=== PATIENT | female | born 1935 | race Caucasian/White ===

== ENCOUNTER 2017-07-19 07:58 | Inpatient (IN) | payer MEDICARE, OTHER ==
[2017-07-11 11:30] LABS: ADD MAN DIFF? NO
[2017-07-11 11:31] LABS: BASOPHILS % 0.5 % (0.0-2.0); EOSINOPHILS # 0.1 10^3/ul (0.0-0.5); EOSINOPHILS % 0.7 % (0.0-7.0); HEMATOCRIT 33.6 % (37.0-47.0); HEMOGLOBIN 10.7 g/dl (12.0-16.0); LYMPHOCYTES # 3.4 10^3/ul (0.8-2.9); LYMPHOCYTES % 40.3 % (15.0-51.0); MEAN CORPUSCULAR HGB CONC 31.8 g/dl (32.0-37.0); MEAN PLATELET VOLUME 10.5 fl (7.4-10.4); MONOCYTE # 0.5 10^3/ul (0.3-0.9); MONOCYTES % 5.4 % (0.0-11.0); NEUTROPHIL # 4.4 10^3/ul (1.6-7.5); NEUTROPHILS % 52.9 % (39.0-77.0); PLATELET COUNT 238 10^3/UL (140-415); RED BLOOD COUNT 3.82 10^6/ul (4.20-5.40); RED CELL DISTRIBUTION WIDTH 14.4 % (11.5-14.5)
[2017-07-11 11:31] LABS: WHITE BLOOD COUNT 8.4 10^3/ul (4.8-10.8)
[2017-07-11 11:50] LABS: INR 0.86; PROTIME 11.8 Sec (11.9-14.9); PT RATIO 0.9
[2017-07-11 11:51] LABS: PARTIAL THROMBOPLASTIN TIME 36.6 Sec (25.0-35.0)
[2017-07-11 11:53] LABS: ALANINE AMINOTRANSFERASE 30 IU/L (13-69); ALBUMIN 4.2 g/dl (3.3-4.9); ALBUMIN/GLOBULIN RATIO 1.27; ALKALINE PHOSPHATASE 36 IU/L (42-121); ANION GAP 16 (8-16); ASPARTATE AMINO TRANSFERASE 23 IU/L (15-46); BLOOD UREA NITROGEN 28 mg/dl (7-20); CARBON DIOXIDE 28 mmol/L (21-31); CHLORIDE 101 mmol/L (97-110); CREATININE 1.24 mg/dl (0.44-1.00); GLUCOSE 99 mg/dl (70-220); POTASSIUM 4.8 mmol/L (3.5-5.1); SODIUM 140 mmol/L (135-144); TOTAL PROTEIN 7.5 g/dl (6.1-8.1)
[2017-07-19] MEDS: SOD CHLORIDE 0.9% 1,000 ML IV ×2 (06:30→19:50)
[2017-07-19] MEDS: AMPICILLIN/SULB 3 GM/NS (PMX) 100 ML IVPB (06:30)
[~2017-07-19 07:58] MED LIST: PROPOFOL 200 MG INJ
[2017-07-19] MEDS ORDERED: MIDAZOLAM 1 MG/ML 2 ML INJ (12:33)
[2017-07-19] MEDS ORDERED: ONDANSETRON 4 MG INJ (14:45)
[2017-07-19] MEDS ORDERED: GLYCOPYRROLATE 0.4 MG INJ (14:45)
[2017-07-19] MEDS ORDERED: ETOMIDATE 20 MG INJ (14:45)
[2017-07-19] MEDS ORDERED: ROCURONIUM 50 MG INJ (14:45)
[2017-07-19] MEDS ORDERED: NEOSTIGMINE 3 MG/3 ML SYRINGE (14:45)
[2017-07-19] MEDS ORDERED: LIDOCAINE 2% (SDV) 5 ML INJ (14:45)
[2017-07-19] MEDS ORDERED: metroNIDAZOLE 500 MG/NS (PMX) 100 ML IVPB (14:46)
[2017-07-19] MEDS ORDERED: CIPROFLOXACIN 400MG/D5W 200 ML (14:46)
[2017-07-19] MEDS ORDERED: METOCLOPRAMIDE 10 MG INJ IV (15:30)
[2017-07-19] MEDS ORDERED: DIPHENHYDRAMINE 50 MG INJ IV (15:30)
[2017-07-19] MEDS ORDERED: HYDROmorphONE (0.2 MG/ML) 10ML SYG IV (15:30)
[2017-07-19] MEDS ORDERED: LABETALOL HCL 20MG INJ IV (15:30)
[2017-07-19] MEDS ORDERED: MEPERIDINE 25 MG INJ IV (15:30)
[2017-07-19] MEDS ORDERED: hydrALAzine 20 MG INJ IV (15:30)
[2017-07-19] MEDS ORDERED: FENTAnyl 50 MCG/ML VIAL IV (15:30)
[2017-07-19] MEDS: ONDANSETRON 4 MG INJ IV (15:45)
[2017-07-19] MEDS: HYDROmorphONE (0.2 MG/ML) 10ML SYG IV (15:53)
[2017-07-19] MEDS: morphine 1 MG/ML 30 ML (PCA) IV (16:00)
[2017-07-19] MEDS: D5W-0.45 NACL + KCL 20 MEQ 1,000 ML IV ×2 (19:21→23:05)
[2017-07-19] MEDS ORDERED: VITAMIN A & D 5 GM OINT PACKET TOP (21:13)
[2017-07-20] MEDS: morphine 1 MG/ML 30 ML (PCA) IV ×2 (03:23→14:26)
[2017-07-20] MEDS: D5W-0.45 NACL + KCL 20 MEQ 1,000 ML IV ×3 (05:54→16:46)
[2017-07-20 11:17] LABS: ADD MAN DIFF? NO
[2017-07-20 11:38] LABS: BASOPHILS % 0.2 % (0.0-2.0); EOSINOPHILS % 0.1 % (0.0-7.0); HEMATOCRIT 32.4 % (37.0-47.0); HEMOGLOBIN 10.4 g/dl (12.0-16.0); LYMPHOCYTES # 3.4 10^3/ul (0.8-2.9); LYMPHOCYTES % 25.4 % (15.0-51.0); MEAN CORPUSCULAR HEMOGLOBIN 28.3 pg (29.0-33.0); MEAN CORPUSCULAR HGB CONC 32.1 g/dl (32.0-37.0); MEAN CORPUSCULAR VOLUME 88.3 fl (82.0-101.0); MEAN PLATELET VOLUME 11.1 fl (7.4-10.4); MONOCYTE # 0.7 10^3/ul (0.3-0.9); MONOCYTES % 5.3 % (0.0-11.0); NEUTROPHILS % 68.5 % (39.0-77.0); PLATELET COUNT 234 10^3/UL (140-415); RED BLOOD COUNT 3.67 10^6/ul (4.20-5.40); RED CELL DISTRIBUTION WIDTH 14.8 % (11.5-14.5)
[2017-07-20 11:38] LABS: WHITE BLOOD COUNT 13.2 10^3/ul (4.8-10.8)
[2017-07-20 11:49] LABS: INR 1.08; PROTIME 14.1 Sec (11.9-14.9); PT RATIO 1.1
[2017-07-20 11:50] LABS: PARTIAL THROMBOPLASTIN TIME 35.5 Sec (25.0-35.0)
[2017-07-20 11:55] LABS: BLOOD UREA NITROGEN 14 mg/dl (7-20); CALCIUM 8.4 mg/dl (8.4-10.2); CARBON DIOXIDE 26 mmol/L (21-31); CHLORIDE 101 mmol/L (97-110); CREATININE 1.39 mg/dl (0.44-1.00); GLUCOSE 120 mg/dl (70-220); MAGNESIUM 1.2 mg/dl (1.7-2.5); PHOSPHORUS 4.9 mg/dl (2.5-4.9); POTASSIUM 4.9 mmol/L (3.5-5.1)
[2017-07-20 12:17] LABS: ANION GAP 12 (8-16); SODIUM 134 mmol/L (135-144)
[2017-07-20] MEDS: D5-NS + KCL 20 MEQ 1,000 ML IV (19:00)
[2017-07-20] MEDS: MAGNESIUM SULFATE 2 GM/50 ML 50 ML IVPB (20:27)
[2017-07-21] MEDS: D5-NS + KCL 20 MEQ 1,000 ML IV ×3 (02:39→17:53)
[2017-07-21] MEDS: morphine 1 MG/ML 30 ML (PCA) IV ×2 (04:08→17:55)
[2017-07-21 05:07] LABS: ADD MAN DIFF? NO
[2017-07-21 05:11] LABS: BASOPHILS % 0.2 % (0.0-2.0); EOSINOPHILS % 0.1 % (0.0-7.0); HEMATOCRIT 31.1 % (37.0-47.0); HEMOGLOBIN 9.7 g/dl (12.0-16.0); LYMPHOCYTES # 1.9 10^3/ul (0.8-2.9); LYMPHOCYTES % 14.1 % (15.0-51.0); MEAN CORPUSCULAR HEMOGLOBIN 27.7 pg (29.0-33.0); MEAN CORPUSCULAR HGB CONC 31.2 g/dl (32.0-37.0); MEAN CORPUSCULAR VOLUME 88.9 fl (82.0-101.0); MEAN PLATELET VOLUME 10.7 fl (7.4-10.4); MONOCYTE # 0.6 10^3/ul (0.3-0.9); MONOCYTES % 4.6 % (0.0-11.0); NEUTROPHIL # 10.9 10^3/ul (1.6-7.5); NEUTROPHILS % 80.5 % (39.0-77.0); PLATELET COUNT 214 10^3/UL (140-415); RED CELL DISTRIBUTION WIDTH 14.7 % (11.5-14.5)
[2017-07-21 05:11] LABS: WHITE BLOOD COUNT 13.6 10^3/ul (4.8-10.8)
[2017-07-21 05:44] LABS: PARTIAL THROMBOPLASTIN TIME 37.7 Sec (25.0-35.0)
[2017-07-21 05:48] LABS: ANION GAP 12 (8-16); BLOOD UREA NITROGEN 15 mg/dl (7-20); CARBON DIOXIDE 25 mmol/L (21-31); CHLORIDE 103 mmol/L (97-110); CREATININE 1.32 mg/dl (0.44-1.00); GLUCOSE 164 mg/dl (70-220); PHOSPHORUS 3.5 mg/dl (2.5-4.9); POTASSIUM 4.7 mmol/L (3.5-5.1); SODIUM 135 mmol/L (135-144)
[2017-07-21 05:53] LABS: INR 1.18; PROTIME 15.2 Sec (11.9-14.9); PT RATIO 1.2
[2017-07-21] MEDS: KETOROLAC 15 MG INJ IV ×3 (14:30→20:44)
[2017-07-21] MEDS ORDERED: KETOROLAC 15 MG INJ IV (20:30)
[2017-07-22] MEDS: D5-NS + KCL 20 MEQ 1,000 ML IV ×2 (02:01→12:09)
[2017-07-22] MEDS: KETOROLAC 15 MG INJ IV ×4 (02:01→20:30)
[2017-07-22] MEDS: morphine 1 MG/ML 30 ML (PCA) IV (09:03)
[2017-07-22 10:31] LABS: ADD MAN DIFF? NO
[2017-07-22 10:32] LABS: WHITE BLOOD COUNT 10.4 10^3/ul (4.8-10.8)
[2017-07-22 10:32] LABS: BASOPHILS % 0.3 % (0.0-2.0); EOSINOPHILS # 0.1 10^3/ul (0.0-0.5); EOSINOPHILS % 1.2 % (0.0-7.0); HEMOGLOBIN 9.3 g/dl (12.0-16.0); LYMPHOCYTES # 1.8 10^3/ul (0.8-2.9); LYMPHOCYTES % 17.5 % (15.0-51.0); MEAN CORPUSCULAR VOLUME 90.4 fl (82.0-101.0); MEAN PLATELET VOLUME 10.5 fl (7.4-10.4); MONOCYTE # 0.4 10^3/ul (0.3-0.9); NEUTROPHILS % 76.6 % (39.0-77.0); PLATELET COUNT 227 10^3/UL (140-415); RED BLOOD COUNT 3.32 10^6/ul (4.20-5.40); RED CELL DISTRIBUTION WIDTH 14.7 % (11.5-14.5)
[2017-07-22 10:49] LABS: INR 0.93; PROTIME 12.5 Sec (11.9-14.9)
[2017-07-22 10:50] LABS: ANION GAP 14 (8-16); BLOOD UREA NITROGEN 14 mg/dl (7-20); CALCIUM 8.2 mg/dl (8.4-10.2); CARBON DIOXIDE 19 mmol/L (21-31); CHLORIDE 111 mmol/L (97-110); CREATININE 1.16 mg/dl (0.44-1.00); GLUCOSE 122 mg/dl (70-220); PARTIAL THROMBOPLASTIN TIME 36.5 Sec (25.0-35.0); PHOSPHORUS 3.1 mg/dl (2.5-4.9); POTASSIUM 5.7 mmol/L (3.5-5.1); SODIUM 138 mmol/L (135-144)
[2017-07-22] MEDS: DEXTROSE 5%-0.45% NACL 1,000 ML IV (15:00)
[2017-07-23] MEDS: DEXTROSE 5%-0.45% NACL 1,000 ML IV ×4 (02:07→22:30)
[2017-07-23] MEDS: KETOROLAC 15 MG INJ IV ×4 (02:30→20:13)
[2017-07-23 06:12] LABS: ADD MAN DIFF? NO
[2017-07-23 06:20] LABS: BASOPHILS % 0.2 % (0.0-2.0); EOSINOPHILS # 0.1 10^3/ul (0.0-0.5); EOSINOPHILS % 1.4 % (0.0-7.0); HEMATOCRIT 27.6 % (37.0-47.0); HEMOGLOBIN 8.7 g/dl (12.0-16.0); LYMPHOCYTES # 1.7 10^3/ul (0.8-2.9); LYMPHOCYTES % 21.4 % (15.0-51.0); MEAN CORPUSCULAR HEMOGLOBIN 28.2 pg (29.0-33.0); MEAN CORPUSCULAR HGB CONC 31.5 g/dl (32.0-37.0); MEAN CORPUSCULAR VOLUME 89.6 fl (82.0-101.0); MEAN PLATELET VOLUME 10.8 fl (7.4-10.4); MONOCYTE # 0.4 10^3/ul (0.3-0.9); NEUTROPHIL # 5.8 10^3/ul (1.6-7.5); NEUTROPHILS % 71.6 % (39.0-77.0); PLATELET COUNT 225 10^3/UL (140-415); RED BLOOD COUNT 3.08 10^6/ul (4.20-5.40); RED CELL DISTRIBUTION WIDTH 14.6 % (11.5-14.5)
[2017-07-23 06:20] LABS: WHITE BLOOD COUNT 8.1 10^3/ul (4.8-10.8)
[2017-07-23] MEDS: ONDANSETRON 4 MG INJ IV ×2 (06:44→23:52)
[2017-07-23] MEDS: morphine 1 MG/ML 30 ML (PCA) IV (06:55)
[2017-07-23 07:04] LABS: ANION GAP 12 (8-16); BLOOD UREA NITROGEN 13 mg/dl (7-20); CALCIUM 8.3 mg/dl (8.4-10.2); CARBON DIOXIDE 21 mmol/L (21-31); CHLORIDE 110 mmol/L (97-110); CREATININE 1.13 mg/dl (0.44-1.00); GLUCOSE 116 mg/dl (70-220); POTASSIUM 5.2 mmol/L (3.5-5.1); SODIUM 138 mmol/L (135-144)
[2017-07-24] MEDS: DEXTROSE 5%-0.45% NACL 1,000 ML IV ×6 (01:07→22:30)
[2017-07-24] MEDS: hydrALAzine 20 MG INJ IV ×2 (01:07→20:15)
[2017-07-24] MEDS: KETOROLAC 15 MG INJ IV ×2 (03:44→08:51)
[2017-07-24] MEDS: METOCLOPRAMIDE 10 MG INJ IV (03:44)
[2017-07-24 05:26] LABS: ADD MAN DIFF? NO
[2017-07-24 05:28] LABS: BASOPHILS % 0.4 % (0.0-2.0); EOSINOPHILS % 0.6 % (0.0-7.0); HEMATOCRIT 26.9 % (37.0-47.0); HEMOGLOBIN 8.6 g/dl (12.0-16.0); LYMPHOCYTES # 1.3 10^3/ul (0.8-2.9); LYMPHOCYTES % 19.6 % (15.0-51.0); MEAN CORPUSCULAR HEMOGLOBIN 28.2 pg (29.0-33.0); MEAN CORPUSCULAR VOLUME 88.2 fl (82.0-101.0); MEAN PLATELET VOLUME 10.4 fl (7.4-10.4); MONOCYTE # 0.4 10^3/ul (0.3-0.9); MONOCYTES % 5.5 % (0.0-11.0); NEUTROPHIL # 4.9 10^3/ul (1.6-7.5); NEUTROPHILS % 73.5 % (39.0-77.0); PLATELET COUNT 236 10^3/UL (140-415); RED BLOOD COUNT 3.05 10^6/ul (4.20-5.40); RED CELL DISTRIBUTION WIDTH 14.6 % (11.5-14.5)
[2017-07-24 05:28] LABS: WHITE BLOOD COUNT 6.7 10^3/ul (4.8-10.8)
[2017-07-24 05:52] LABS: ANION GAP 11 (8-16); BLOOD UREA NITROGEN 16 mg/dl (7-20); CARBON DIOXIDE 23 mmol/L (21-31); CHLORIDE 107 mmol/L (97-110); CREATININE 1.22 mg/dl (0.44-1.00); GLUCOSE 132 mg/dl (70-220); POTASSIUM 4.6 mmol/L (3.5-5.1); SODIUM 136 mmol/L (135-144)
[2017-07-24] MEDS: ONDANSETRON 4 MG INJ IV ×2 (08:51→17:46)
[2017-07-25] MEDS: hydrALAzine 20 MG INJ IV (00:35)
[2017-07-25] MEDS: METOCLOPRAMIDE 10 MG INJ IV (00:42)
[2017-07-25] MEDS: DEXTROSE 5%-0.45% NACL 1,000 ML IV ×3 (02:36→15:05)
[2017-07-25 05:17] LABS: HEMATOCRIT 34.4 % (37.0-47.0); HEMOGLOBIN 11.1 g/dl (12.0-16.0); MEAN CORPUSCULAR HEMOGLOBIN 27.5 pg (29.0-33.0); MEAN CORPUSCULAR HGB CONC 32.3 g/dl (32.0-37.0); MEAN CORPUSCULAR VOLUME 85.4 fl (82.0-101.0); MEAN PLATELET VOLUME 10.2 fl (7.4-10.4); PLATELET COUNT 369 10^3/UL (140-415); RED BLOOD COUNT 4.03 10^6/ul (4.20-5.40); RED CELL DISTRIBUTION WIDTH 14.1 % (11.5-14.5)
[2017-07-25 05:17] LABS: WHITE BLOOD COUNT 6.8 10^3/ul (4.8-10.8)
[2017-07-25] MEDS: ACETAMINOPHEN 1000MG/100ML IV 100 ML IVPB ×2 (05:18→20:49)
[2017-07-25 05:39] LABS: ANION GAP 13 (8-16); BLOOD UREA NITROGEN 16 mg/dl (7-20); CALCIUM 8.8 mg/dl (8.4-10.2); CARBON DIOXIDE 17 mmol/L (21-31); CHLORIDE 109 mmol/L (97-110); GLUCOSE 131 mg/dl (70-220); SODIUM 135 mmol/L (135-144)
[2017-07-25 05:43] LABS: ADD MAN DIFF? YES; POSITIVE DIFF @See below
[2017-07-25] MEDS: PANTOPRAZOLE 40 MG INJ IV ×2 (05:54→17:49)
[2017-07-25] MEDS ORDERED: DILTIAZEM-D5W 125MG/125ML DRIP 125 ML IV ×2 (07:00)
[2017-07-25] MEDS: DILTIAZEM-D5W 125MG/125ML DRIP 125 ML IV (07:01)
[2017-07-25 07:48] LABS: ANISOCYTOSIS 1+ (0-0); BAND NEUTROPHILS % (M) 45 % (0-4); BURR CELLS 2+ (0-0); LYMPHOCYTES #M 1.3 10^3/ul (0.8-2.9); LYMPHOCYTES % (M) 20 % (15-51); METAMYELOCYTES %M 1 % (0-0); MICROCYTOSIS 1+ (0-0); MONOCYTE #M 0.6 10^3/ul (0.3-0.9); MONOCYTES % (M) 9 % (0-11); MYELOCYTES % (M) 1 % (0-0); PLATELET ESTIMATE NORMAL; POIKILOCYTOSIS 2+ (0-0); POLYCHROMASIA 1+ (0-0); REACTIVE LYMPHOCYTES #M 0.3 10^3/ul (0.0-0.0); REACTIVE LYMPHOCYTES% (M) 5 % (0-0); SEG NEUT #M 1.5 10^3/ul (1.7-7.5); SEGMENTED NEUTROPHILS (M) % 19 % (39-77); SMUDGE%M 1 % (0-0)
[2017-07-25] MEDS: LIDOCAINE 1% (MPF) 5 ML VIAL SC (08:30)
[2017-07-25 11:13] LABS: LACTIC ACID 5.5 mmol/L (0.5-2.0)
[2017-07-25] MEDS: SOD CHLORIDE 0.9% 1,000 ML IV ×3 (11:45→18:56)
[2017-07-25] MEDS: VANCOMYCIN IV PER PHARMACY XX ×2 (12:00→18:00)
[2017-07-25 13:55] LABS: ADD MAN DIFF? NO
[2017-07-25 14:21] LABS: ALANINE AMINOTRANSFERASE 21 IU/L (13-69); ALBUMIN 2.3 g/dl (3.3-4.9); ALBUMIN/GLOBULIN RATIO 0.95; ALKALINE PHOSPHATASE 25 IU/L (42-121); ANION GAP 15 (8-16); ASPARTATE AMINO TRANSFERASE 21 IU/L (15-46); BILIRUBIN,INDIRECT 0.2 mg/dl (0-1.1); BILIRUBIN,TOTAL 0.2 mg/dl (0.2-1.3); BLOOD UREA NITROGEN 18 mg/dl (7-20); CALCIUM 7.6 mg/dl (8.4-10.2); CARBON DIOXIDE 16 mmol/L (21-31); CHLORIDE 109 mmol/L (97-110); CREATININE 1.28 mg/dl (0.44-1.00); GLUCOSE 97 mg/dl (70-220); SODIUM 136 mmol/L (135-144); TOTAL PROTEIN 4.7 g/dl (6.1-8.1)
[2017-07-25] MEDS: PIPER-TAZO 2.25 GM (PMX) 50 ML IVPB ×2 (15:04→17:49)
[2017-07-25] MEDS: VANCOMYCIN 1.5 GM in DEXTROSE 5% 500 ML IVPB (15:04)
[2017-07-25 15:08] LABS: ABNORMAL IP MESSAGE 1; HEMATOCRIT 30.6 % (37.0-47.0); HEMOGLOBIN 9.9 g/dl (12.0-16.0); MEAN CORPUSCULAR HEMOGLOBIN 28.1 pg (29.0-33.0); MEAN CORPUSCULAR HGB CONC 32.4 g/dl (32.0-37.0); MEAN CORPUSCULAR VOLUME 86.9 fl (82.0-101.0); MEAN PLATELET VOLUME 10.8 fl (7.4-10.4); PLATELET COUNT 362 10^3/UL (140-415); RED BLOOD COUNT 3.52 10^6/ul (4.20-5.40); RED CELL DISTRIBUTION WIDTH 14.4 % (11.5-14.5)
[2017-07-25 15:08] LABS: WHITE BLOOD COUNT 11.5 10^3/ul (4.8-10.8)
[2017-07-25 15:09] LABS: POSITIVE DIFF @See below
[2017-07-25] MEDS: CASPOFUNGIN 70 MG in SOD CHLORIDE 0.9% 250 ML IVPB (15:49)
[2017-07-25 16:01] LABS: ANISOCYTOSIS 1+ (0-0); BAND NEUTROPHILS #M 4.7 10^3/ul (0.0-0.6); BAND NEUTROPHILS % (M) 41 % (0-4); GIANT THROMBO% (M) 2 % (0-0); LYMPHOCYTES #M 2.6 10^3/ul (0.8-2.9); LYMPHOCYTES % (M) 23 % (15-51); METAMYELOCYTES #M 0.6 10^3/ul (0.0-0.0); METAMYELOCYTES %M 6 % (0-0); MICROCYTOSIS 1+ (0-0); MONOCYTE #M 0.9 10^3/ul (0.3-0.9); MONOCYTES % (M) 8 % (0-11); PLATELET ESTIMATE NORMAL; POLYCHROMASIA 1+ (0-0); REACTIVE LYMPHOCYTES #M 0.1 10^3/ul (0.0-0.0); REACTIVE LYMPHOCYTES% (M) 1 % (0-0); SEGMENTED NEUTROPHILS (M) % 21 % (39-77)
[2017-07-25] MEDS: DIGOXIN 500 MCG INJ IV (17:57)
[2017-07-25] MEDS: SOD CHLORIDE 0.9% 100 ML (18:10)
[2017-07-25 19:20] LABS: ADD UMIC YES; UR ASCORBIC ACID NEGATIVE (NEGATIVE); UR BACTERIA FEW /HPF (NONE SEEN); UR BILIRUBIN (Dip) NEGATIVE (NEGATIVE); UR BLOOD (Dip) 1+ mg/dL (NEGATIVE); UR BUDDING YEAST MANY /HPF (NONE SEEN); UR CLARITY CLOUDY (CLEAR); UR COLOR AMBER (YELLOW); UR GLUCOSE (Dip) NEGATIVE (NEGATIVE); UR KETONES (Dip) NEGATIVE (NEGATIVE); UR LEUKOCYTE ESTERASE (Dip) 1+ Leu/ul (NEGATIVE); UR MUCUS MODERATE /HPF (NONE SEEN); UR NITRITE (Dip) NEGATIVE (NEGATIVE); UR RBC 19 /HPF (0-5); UR SPECIFIC GRAVITY (Dip) 1.021 (1.003-1.030); UR TOTAL PROTEIN (Dip) 1+ mg/dl (NEGATIVE); UR UROBILINOGEN (Dip) NEGATIVE (NEGATIVE); UR WBC 5 /HPF (0-5)
[2017-07-26] MEDS: morphine 2 MG INJ IV ×2 (00:14→22:56)
[2017-07-26] MEDS: DIGOXIN 500 MCG INJ IV (00:48)
[2017-07-26] MEDS: ALBUMIN HUMAN 25% 100 ML IVPB (00:49)
[2017-07-26] MEDS: PIPER-TAZO 2.25 GM (PMX) 50 ML IVPB ×4 (00:53→18:02)
[2017-07-26] MEDS: SOD CHLORIDE 0.9% 1,000 ML IV ×4 (01:40→21:40)
[2017-07-26] MEDS: VANCOMYCIN IV PER PHARMACY XX ×4 (05:03→17:08)
[2017-07-26] MEDS: PANTOPRAZOLE 40 MG INJ IV ×2 (05:03→17:02)
[2017-07-26 05:15] LABS: WHITE BLOOD COUNT 13.1 10^3/ul (4.8-10.8)
[2017-07-26 05:15] LABS: ABNORMAL IP MESSAGE 1; HEMOGLOBIN 8.3 g/dl (12.0-16.0); MEAN CORPUSCULAR HEMOGLOBIN 28.1 pg (29.0-33.0); MEAN CORPUSCULAR HGB CONC 33.2 g/dl (32.0-37.0); MEAN CORPUSCULAR VOLUME 84.7 fl (82.0-101.0); MEAN PLATELET VOLUME 10.3 fl (7.4-10.4); PLATELET COUNT 258 10^3/UL (140-415); RED BLOOD COUNT 2.95 10^6/ul (4.20-5.40); RED CELL DISTRIBUTION WIDTH 14.8 % (11.5-14.5)
[2017-07-26 05:51] LABS: POSITIVE DIFF @See below
[2017-07-26 05:52] LABS: ADD MAN DIFF? YES
[2017-07-26 06:09] LABS: ANION GAP 15 (8-16); BLOOD UREA NITROGEN 23 mg/dl (7-20); CALCIUM 7.1 mg/dl (8.4-10.2); CARBON DIOXIDE 17 mmol/L (21-31); CHLORIDE 109 mmol/L (97-110); CREATININE 1.32 mg/dl (0.44-1.00); GLUCOSE 85 mg/dl (70-220); POTASSIUM 4.4 mmol/L (3.5-5.1); SODIUM 137 mmol/L (135-144)
[2017-07-26 09:58] LABS: ANISOCYTOSIS 1+ (0-0); BAND NEUTROPHILS % (M) 54 % (0-4); BURR CELLS 3+ (0-0); GIANT THROMBO% (M) 2 % (0-0); LYMPHOCYTES % (M) 23 % (15-51); METAMYELOCYTES #M 0.5 10^3/ul (0.0-0.0); METAMYELOCYTES %M 4 % (0-0); MICROCYTOSIS 1+ (0-0); MONOCYTE #M 0.6 10^3/ul (0.3-0.9); MONOCYTES % (M) 5 % (0-11); PLATELET ESTIMATE NORMAL; POIKILOCYTOSIS 3+ (0-0); POLYCHROMASIA 1+ (0-0); SEG NEUT #M 2.8 10^3/ul (1.7-7.5); SEGMENTED NEUTROPHILS (M) % 14 % (39-77)
[2017-07-26] MEDS: VANCOMYCIN HCL 250 MG/5ML POSYG NGT ×3 (11:35→20:18)
[2017-07-26] MEDS: VANCOMYCIN 750 MG in DEXTROSE 5% 150 ML IVPB (12:00)
[2017-07-26] MEDS: CASPOFUNGIN 50 MG in SOD CHLORIDE 0.9% 250 ML IVPB (13:52)
[2017-07-26] MEDS: ALBUMIN HUMAN 25% 100 ML IV (16:54)
[2017-07-26] MEDS: metroNIDAZOLE 500 MG/NS (PMX) 100 ML IVPB (20:18)
[2017-07-27] MEDS: PIPER-TAZO 2.25 GM (PMX) 50 ML IVPB ×5 (00:23→23:59)
[2017-07-27] MEDS: ALBUMIN HUMAN 25% 100 ML IV ×3 (01:07→22:18)
[2017-07-27] MEDS: VANCOMYCIN HCL 250 MG/5ML POSYG NGT ×5 (01:07→23:59)
[2017-07-27] MEDS: LORAZEPAM 2 MG INJ IV (02:12)
[2017-07-27] MEDS: SOD CHLORIDE 0.9% 1,000 ML IV (04:10)
[2017-07-27] MEDS: VANCOMYCIN IV PER PHARMACY XX ×4 (05:14→17:45)
[2017-07-27] MEDS: PANTOPRAZOLE 40 MG INJ IV ×2 (05:20→17:44)
[2017-07-27 07:09] LABS: ALANINE AMINOTRANSFERASE 26 IU/L (13-69); ALBUMIN 2.1 g/dl (3.3-4.9); ALBUMIN/GLOBULIN RATIO 0.95; ALKALINE PHOSPHATASE 21 IU/L (42-121); ANION GAP 13 (8-16); ASPARTATE AMINO TRANSFERASE 19 IU/L (15-46); BLOOD UREA NITROGEN 23 mg/dl (7-20); CALCIUM 6.8 mg/dl (8.4-10.2); CARBON DIOXIDE 14 mmol/L (21-31); CHLORIDE 116 mmol/L (97-110); CREATININE 1.08 mg/dl (0.44-1.00); POTASSIUM 3.1 mmol/L (3.5-5.1); SODIUM 140 mmol/L (135-144); TOTAL PROTEIN 4.3 g/dl (6.1-8.1)
[2017-07-27 07:14] LABS: GLUCOSE 45 mg/dl (70-220)
[2017-07-27 08:05] LABS: ABNORMAL IP MESSAGE 1; HEMATOCRIT 24.2 % (37.0-47.0); HEMOGLOBIN 7.8 g/dl (12.0-16.0); MEAN CORPUSCULAR HEMOGLOBIN 28.1 pg (29.0-33.0); MEAN CORPUSCULAR HGB CONC 32.2 g/dl (32.0-37.0); MEAN CORPUSCULAR VOLUME 87.1 fl (82.0-101.0); MEAN PLATELET VOLUME 10.8 fl (7.4-10.4); PLATELET COUNT 318 10^3/UL (140-415); RED BLOOD COUNT 2.78 10^6/ul (4.20-5.40)
[2017-07-27 08:05] LABS: WHITE BLOOD COUNT 16.1 10^3/ul (4.8-10.8)
[2017-07-27 08:06] LABS: ADD MAN DIFF? YES; POSITIVE DIFF @See below
[2017-07-27 09:11] LABS: ANISOCYTOSIS 1+ (0-0); BAND NEUTROPHILS #M 4.3 10^3/ul (0.0-0.6); BAND NEUTROPHILS % (M) 27 % (0-4); BURR CELLS 3+ (0-0); LYMPHOCYTES #M 2.8 10^3/ul (0.8-2.9); LYMPHOCYTES % (M) 18 % (15-51); MICROCYTOSIS 1+ (0-0); MONOCYTE #M 0.3 10^3/ul (0.3-0.9); MONOCYTES % (M) 2 % (0-11); PLATELET ESTIMATE NORMAL; POIKILOCYTOSIS 3+ (0-0); POLYCHROMASIA 1+ (0-0); REACTIVE LYMPHOCYTES #M 0.1 10^3/ul (0.0-0.0); REACTIVE LYMPHOCYTES% (M) 1 % (0-0); SEG NEUT #M 9.1 10^3/ul (1.7-7.5); SEGMENTED NEUTROPHILS (M) % 52 % (39-77); SMUDGE%M 3 % (0-0)
[2017-07-27] MEDS: D5W-0.45 NACL + KCL 40 MEQ 1,000 ML IV ×3 (09:23→22:09)
[2017-07-27] MEDS: CASPOFUNGIN 50 MG in SOD CHLORIDE 0.9% 250 ML IVPB (15:14)
[2017-07-27] MEDS: VANCOMYCIN 500MG/NS (PMX) 100 ML IVPB (15:14)
[2017-07-27] MEDS: CLONIDINE 0.1 MG/24 HR PATCH TRANSDERM (16:41)
[2017-07-27] MEDS: POTASSIUM CHLORIDE 50 ML IVPB ×3 (19:01→21:11)
[2017-07-28] MEDS: PANTOPRAZOLE 40 MG INJ IV ×2 (05:15→17:56)
[2017-07-28] MEDS: PIPER-TAZO 2.25 GM (PMX) 50 ML IVPB ×3 (05:21→17:56)
[2017-07-28] MEDS: VANCOMYCIN IV PER PHARMACY XX ×4 (05:21→18:00)
[2017-07-28] MEDS: VANCOMYCIN HCL 250 MG/5ML POSYG NGT ×3 (05:21→18:03)
[2017-07-28 05:52] LABS: WHITE BLOOD COUNT 17.1 10^3/ul (4.8-10.8)
[2017-07-28 05:52] LABS: HEMATOCRIT 21.8 % (37.0-47.0); MEAN CORPUSCULAR HEMOGLOBIN 27.6 pg (29.0-33.0); MEAN CORPUSCULAR HGB CONC 32.1 g/dl (32.0-37.0); MEAN CORPUSCULAR VOLUME 85.8 fl (82.0-101.0); MEAN PLATELET VOLUME 10.8 fl (7.4-10.4); PLATELET COUNT 327 10^3/UL (140-415); RED BLOOD COUNT 2.54 10^6/ul (4.20-5.40); RED CELL DISTRIBUTION WIDTH 15.2 % (11.5-14.5)
[2017-07-28 05:58] LABS: ADD MAN DIFF? YES; POSITIVE DIFF @See below
[2017-07-28 06:29] LABS: ANION GAP 13 (8-16); BLOOD UREA NITROGEN 24 mg/dl (7-20); CALCIUM 7.9 mg/dl (8.4-10.2); CARBON DIOXIDE 16 mmol/L (21-31); CHLORIDE 115 mmol/L (97-110); CREATININE 1.09 mg/dl (0.44-1.00); GLUCOSE 81 mg/dl (70-220); MAGNESIUM 1.6 mg/dl (1.7-2.5); POTASSIUM 3.5 mmol/L (3.5-5.1); SODIUM 140 mmol/L (135-144)
[2017-07-28] MEDS: ALBUMIN HUMAN 25% 100 ML IV ×2 (09:52→21:41)
[2017-07-28] MEDS: morphine 2 MG INJ IV ×2 (09:53)
[2017-07-28 10:28] LABS: ANISOCYTOSIS 1+ (0-0); BAND NEUTROPHILS #M 3.2 10^3/ul (0.0-0.6); BAND NEUTROPHILS % (M) 19 % (0-4); LYMPHOCYTES #M 2.3 10^3/ul (0.8-2.9); LYMPHOCYTES % (M) 14 % (15-51); MICROCYTOSIS 1+ (0-0); MONOCYTE #M 0.5 10^3/ul (0.3-0.9); MONOCYTES % (M) 3 % (0-11); PLATELET ESTIMATE NORMAL; POIKILOCYTOSIS 2+ (0-0); POLYCHROMASIA 3+ (0-0); SEG NEUT #M 11.5 10^3/ul (1.7-7.5); SEGMENTED NEUTROPHILS (M) % 64 % (39-77)
[2017-07-28] MEDS: D5W-0.45 NACL + KCL 40 MEQ 1,000 ML IV (12:10)
[2017-07-28 12:13] LABS: VANCOMYCIN,TROUGH 10.3 ug/ml (10.0-20.0)
[2017-07-28] MEDS: VANCOMYCIN 500MG/NS (PMX) 100 ML IVPB (13:01)
[2017-07-28 14:20] LABS: IMMEDIATE SPIN CROSSMATCH 1 1
[2017-07-28] MEDS: CASPOFUNGIN 50 MG in SOD CHLORIDE 0.9% 250 ML IVPB (14:54)
[2017-07-28] MEDS: MAGNESIUM SULFATE 1 GM/D5W 100 ML IVPB (19:48)
[2017-07-28] MEDS: hydrALAzine 20 MG INJ IV (21:42)
[2017-07-28 21:56] LABS: OCCULT BLOOD STOOL NEGATIVE (NEGATIVE)
[2017-07-29] MEDS: VANCOMYCIN HCL 250 MG/5ML POSYG PO ×4 (00:15→17:17)
[2017-07-29] MEDS: ZOLPIDEM 5 MG TAB PO ×2 (00:42→23:02)
[2017-07-29] MEDS: D5W-0.45 NACL + KCL 40 MEQ 1,000 ML IV ×2 (04:23→21:26)
[2017-07-29] MEDS: PANTOPRAZOLE 40 MG INJ IV ×2 (05:44→17:21)
[2017-07-29 06:09] LABS: ADD MAN DIFF? NO
[2017-07-29 06:21] LABS: WHITE BLOOD COUNT 18.5 10^3/ul (4.8-10.8)
[2017-07-29 06:21] LABS: ABNORMAL IP MESSAGE 1; BASOPHIL # 0.1 10^3/ul (0.0-0.1); BASOPHILS % 0.5 % (0.0-2.0); EOSINOPHILS # 0.1 10^3/ul (0.0-0.5); EOSINOPHILS % 0.4 % (0.0-7.0); HEMATOCRIT 27.2 % (37.0-47.0); HEMOGLOBIN 9.1 g/dl (12.0-16.0); LYMPHOCYTES # 3.4 10^3/ul (0.8-2.9); LYMPHOCYTES % 18.1 % (15.0-51.0); MEAN CORPUSCULAR HEMOGLOBIN 28.1 pg (29.0-33.0); MEAN CORPUSCULAR HGB CONC 33.5 g/dl (32.0-37.0); MEAN PLATELET VOLUME 11.1 fl (7.4-10.4); MONOCYTE # 0.8 10^3/ul (0.3-0.9); MONOCYTES % 4.3 % (0.0-11.0); NEUTROPHILS % 70.5 % (39.0-77.0); PLATELET COUNT 335 10^3/UL (140-415); RED BLOOD COUNT 3.24 10^6/ul (4.20-5.40); RED CELL DISTRIBUTION WIDTH 15.1 % (11.5-14.5)
[2017-07-29 06:39] LABS: POSITIVE DIFF @See below
[2017-07-29 07:30] LABS: MAGNESIUM 1.8 mg/dl (1.7-2.5)
[2017-07-29] MEDS ORDERED: VANCOMYCIN 750 MG in DEXTROSE 5% 150 ML IVPB (09:00)
[2017-07-29] MEDS: morphine 2 MG INJ IV ×3 (09:07→19:05)
[2017-07-29] MEDS: ALBUMIN HUMAN 25% 100 ML IV ×2 (09:09→17:16)
[2017-07-29 09:31] LABS: ANION GAP 12 (8-16); BLOOD UREA NITROGEN 20 mg/dl (7-20); CALCIUM 8.5 mg/dl (8.4-10.2); CARBON DIOXIDE 16 mmol/L (21-31); CHLORIDE 115 mmol/L (97-110); CREATININE 0.99 mg/dl (0.44-1.00); GLUCOSE 104 mg/dl (70-220); POTASSIUM 3.5 mmol/L (3.5-5.1); SODIUM 139 mmol/L (135-144)
[2017-07-29] MEDS: hydrALAzine 20 MG INJ IV ×2 (10:15→17:31)
[2017-07-29 22:23] LABS: ADD UMIC YES; UR ASCORBIC ACID NEGATIVE (NEGATIVE); UR BACTERIA FEW /HPF (NONE SEEN); UR BILIRUBIN (Dip) NEGATIVE (NEGATIVE); UR BLOOD (Dip) 1+ mg/dL (NEGATIVE); UR CLARITY SLIGHTLY CLOUDY (CLEAR); UR COLOR YELLOW (YELLOW); UR GLUCOSE (Dip) NEGATIVE (NEGATIVE); UR KETONES (Dip) NEGATIVE (NEGATIVE); UR LEUKOCYTE ESTERASE (Dip) NEGATIVE Leu/ul (NEGATIVE); UR MUCUS FEW /HPF (NONE SEEN); UR NITRITE (Dip) NEGATIVE (NEGATIVE); UR RBC 29 /HPF (0-5); UR SPECIFIC GRAVITY (Dip) 1.012 (1.003-1.030); UR TOTAL PROTEIN (Dip) NEGATIVE (NEGATIVE); UR UROBILINOGEN (Dip) NEGATIVE (NEGATIVE); UR WBC 3 /HPF (0-5)
[2017-07-30] MEDS: VANCOMYCIN HCL 250 MG/5ML POSYG PO ×5 (01:11→23:03)
[2017-07-30] MEDS: ALBUMIN HUMAN 25% 100 ML IV ×3 (01:12→17:36)
[2017-07-30] MEDS: D5W-0.45 NACL + KCL 40 MEQ 1,000 ML IV ×4 (02:14→17:00)
[2017-07-30] MEDS: hydrALAzine 20 MG INJ IV ×3 (02:30→18:00)
[2017-07-30] MEDS: PANTOPRAZOLE 40 MG INJ IV ×2 (05:43→17:36)
[2017-07-30 06:18] LABS: ADD MAN DIFF? NO
[2017-07-30] MEDS: morphine 2 MG INJ IV ×4 (06:25→23:47)
[2017-07-30 06:43] LABS: ABNORMAL IP MESSAGE 1; BASOPHILS % 0.2 % (0.0-2.0); EOSINOPHILS # 0.1 10^3/ul (0.0-0.5); EOSINOPHILS % 0.5 % (0.0-7.0); HEMATOCRIT 29.9 % (37.0-47.0); LYMPHOCYTES # 2.9 10^3/ul (0.8-2.9); MEAN CORPUSCULAR HEMOGLOBIN 27.9 pg (29.0-33.0); MEAN CORPUSCULAR HGB CONC 33.4 g/dl (32.0-37.0); MEAN CORPUSCULAR VOLUME 83.3 fl (82.0-101.0); MEAN PLATELET VOLUME 10.2 fl (7.4-10.4); MONOCYTE # 0.9 10^3/ul (0.3-0.9); MONOCYTES % 5.2 % (0.0-11.0); NEUTROPHIL # 11.3 10^3/ul (1.6-7.5); NEUTROPHILS % 66.5 % (39.0-77.0); PLATELET COUNT 363 10^3/UL (140-415); RED BLOOD COUNT 3.59 10^6/ul (4.20-5.40); RED CELL DISTRIBUTION WIDTH 14.9 % (11.5-14.5)
[2017-07-30 07:02] LABS: ANION GAP 13 (8-16); BLOOD UREA NITROGEN 14 mg/dl (7-20); CALCIUM 8.5 mg/dl (8.4-10.2); CARBON DIOXIDE 18 mmol/L (21-31); CHLORIDE 112 mmol/L (97-110); CREATININE 0.85 mg/dl (0.44-1.00); GLUCOSE 106 mg/dl (70-220); POTASSIUM 3.5 mmol/L (3.5-5.1); SODIUM 139 mmol/L (135-144)
[2017-07-30 07:11] LABS: POSITIVE DIFF @See below
[2017-07-30] MEDS: METOPROLOL 5 MG INJ IV (09:37)
[2017-07-30 10:06] LABS: ANISOCYTOSIS 2+ (0-0); BAND NEUTROPHILS #M 1.1 10^3/ul (0.0-0.6); BAND NEUTROPHILS % (M) 7 % (0-4); GIANT THROMBO% (M) 2 % (0-0); LYMPHOCYTES #M 2.5 10^3/ul (0.8-2.9); LYMPHOCYTES % (M) 15 % (15-51); MICROCYTOSIS 2+ (0-0); MYELOCYTES #M 0.6 10^3/ul (0.0-0.0); MYELOCYTES % (M) 4 % (0-0); PLATELET ESTIMATE NORMAL; POLYCHROMASIA 1+ (0-0); PROMYELOCYTES #M 0.3 10^3/ul (0-0); PROMYELOCYTES % (M) 2 % (0-0); REACTIVE LYMPHOCYTES #M 0.3 10^3/ul (0.0-0.0); REACTIVE LYMPHOCYTES% (M) 2 % (0-0); SEG NEUT #M 12.1 10^3/ul (1.7-7.5); SEGMENTED NEUTROPHILS (M) % 70 % (39-77); SMUDGE%M 2 % (0-0)
[2017-07-30] MEDS: CLONIDINE 0.3 MG/24 HR PATCH TRANSDERM (13:38)
[2017-07-31] MEDS: ALBUMIN HUMAN 25% 100 ML IV ×3 (01:07→18:02)
[2017-07-31] MEDS: hydrALAzine 20 MG INJ IV ×3 (01:12→14:03)
[2017-07-31] MEDS: PANTOPRAZOLE 40 MG INJ IV ×2 (05:05→17:58)
[2017-07-31] MEDS: D5W-0.45 NACL + KCL 40 MEQ 1,000 ML IV (05:05)
[2017-07-31] MEDS: morphine 2 MG INJ IV ×3 (05:05→22:08)
[2017-07-31] MEDS: VANCOMYCIN HCL 250 MG/5ML POSYG PO ×4 (05:05→23:32)
[2017-07-31 06:08] LABS: ADD MAN DIFF? NO
[2017-07-31 06:14] LABS: ABNORMAL IP MESSAGE 1; BASOPHIL # 0.1 10^3/ul (0.0-0.1); BASOPHILS % 0.6 % (0.0-2.0); EOSINOPHILS # 0.1 10^3/ul (0.0-0.5); EOSINOPHILS % 0.7 % (0.0-7.0); HEMATOCRIT 27.8 % (37.0-47.0); HEMOGLOBIN 9.5 g/dl (12.0-16.0); LYMPHOCYTES % 22.6 % (15.0-51.0); MEAN CORPUSCULAR HEMOGLOBIN 28.4 pg (29.0-33.0); MEAN CORPUSCULAR HGB CONC 34.2 g/dl (32.0-37.0); MEAN PLATELET VOLUME 10.1 fl (7.4-10.4); MONOCYTES % 7.6 % (0.0-11.0); NEUTROPHIL # 7.8 10^3/ul (1.6-7.5); NEUTROPHILS % 58.6 % (39.0-77.0); NUCLEATED RED BLOOD CELLS% 0.1 /100WBC (0.0-0.0); PLATELET COUNT 329 10^3/UL (140-415); RED BLOOD COUNT 3.35 10^6/ul (4.20-5.40); RED CELL DISTRIBUTION WIDTH 15.4 % (11.5-14.5)
[2017-07-31 06:14] LABS: WHITE BLOOD COUNT 13.4 10^3/ul (4.8-10.8)
[2017-07-31 06:28] LABS: POSITIVE DIFF @See below
[2017-07-31 06:44] LABS: MAGNESIUM 1.4 mg/dl (1.7-2.5)
[2017-07-31 06:44] LABS: ANION GAP 13 (8-16); BLOOD UREA NITROGEN 11 mg/dl (7-20); CALCIUM 9.2 mg/dl (8.4-10.2); CARBON DIOXIDE 19 mmol/L (21-31); CHLORIDE 109 mmol/L (97-110); CREATININE 0.82 mg/dl (0.44-1.00); GLUCOSE 99 mg/dl (70-220); SODIUM 137 mmol/L (135-144)
[2017-07-31] MEDS: CLONIDINE 0.2 MG/24 HR PATCH TRANSDERM (11:06)
[2017-07-31] MEDS: MAGNESIUM SULFATE 2 GM/50 ML 50 ML IVPB (11:51)
[2017-07-31] MEDS: POTASSIUM CHLORIDE 40 MEQ in DEXTROSE 5%-0.45% NACL 1,000 ML IV (22:00)
[2017-07-31] MEDS: ZOLPIDEM 5 MG TAB PO (23:34)
[2017-08-01] MEDS: ALBUMIN HUMAN 25% 100 ML IV ×3 (00:30→18:41)
[2017-08-01] MEDS: POTASSIUM CHLORIDE 40 MEQ in DEXTROSE 5%-0.45% NACL 1,000 ML IV ×3 (00:30→18:46)
[2017-08-01] MEDS: hydrALAzine 20 MG INJ IV ×3 (03:03→22:07)
[2017-08-01] MEDS: PANTOPRAZOLE 40 MG INJ IV ×2 (05:23→18:40)
[2017-08-01] MEDS: VANCOMYCIN HCL 250 MG/5ML POSYG PO ×3 (05:30→18:40)
[2017-08-01 07:27] LABS: ADD MAN DIFF? NO
[2017-08-01 07:33] LABS: WHITE BLOOD COUNT 14.5 10^3/ul (4.8-10.8)
[2017-08-01 07:33] LABS: ABNORMAL IP MESSAGE 1; BASOPHIL # 0.1 10^3/ul (0.0-0.1); BASOPHILS % 0.6 % (0.0-2.0); EOSINOPHILS # 0.2 10^3/ul (0.0-0.5); EOSINOPHILS % 1.1 % (0.0-7.0); HEMATOCRIT 28.8 % (37.0-47.0); HEMOGLOBIN 9.6 g/dl (12.0-16.0); LYMPHOCYTES # 3.5 10^3/ul (0.8-2.9); LYMPHOCYTES % 23.9 % (15.0-51.0); MEAN CORPUSCULAR HEMOGLOBIN 28.2 pg (29.0-33.0); MEAN CORPUSCULAR HGB CONC 33.3 g/dl (32.0-37.0); MEAN CORPUSCULAR VOLUME 84.5 fl (82.0-101.0); MEAN PLATELET VOLUME 10.1 fl (7.4-10.4); MONOCYTES % 7.1 % (0.0-11.0); NEUTROPHIL # 8.7 10^3/ul (1.6-7.5); NEUTROPHILS % 60.1 % (39.0-77.0); PLATELET COUNT 370 10^3/UL (140-415); RED BLOOD COUNT 3.41 10^6/ul (4.20-5.40); RED CELL DISTRIBUTION WIDTH 15.6 % (11.5-14.5)
[2017-08-01 07:40] LABS: POSITIVE DIFF @See below
[2017-08-01 07:47] LABS: MAGNESIUM 1.7 mg/dl (1.7-2.5)
[2017-08-01 07:49] LABS: ANION GAP 15 (8-16); BLOOD UREA NITROGEN 9 mg/dl (7-20); CALCIUM 9.1 mg/dl (8.4-10.2); CARBON DIOXIDE 19 mmol/L (21-31); CHLORIDE 108 mmol/L (97-110); CREATININE 0.84 mg/dl (0.44-1.00); GLUCOSE 107 mg/dl (70-220); POTASSIUM 3.8 mmol/L (3.5-5.1); SODIUM 138 mmol/L (135-144)
[2017-08-01] MEDS: morphine 2 MG INJ IV ×3 (07:55→20:18)
[2017-08-01] MEDS: CLONIDINE 0.2 MG/24 HR PATCH TRANSDERM (13:37)
[2017-08-01] MEDS: ZOLPIDEM 5 MG TAB PO (22:10)
[2017-08-02] MEDS: VANCOMYCIN HCL 250 MG/5ML POSYG PO ×5 (00:32→23:49)
[2017-08-02] MEDS: traMADol 50 MG TAB PO ×3 (00:32→20:25)
[2017-08-02] MEDS: ALBUMIN HUMAN 25% 100 ML IV ×2 (00:34→09:22)
[2017-08-02 06:22] LABS: ADD MAN DIFF? NO
[2017-08-02 06:34] LABS: WHITE BLOOD COUNT 13.7 10^3/ul (4.8-10.8)
[2017-08-02 06:34] LABS: BASOPHIL # 0.1 10^3/ul (0.0-0.1); BASOPHILS % 0.4 % (0.0-2.0); EOSINOPHILS # 0.2 10^3/ul (0.0-0.5); EOSINOPHILS % 1.5 % (0.0-7.0); HEMOGLOBIN 8.6 g/dl (12.0-16.0); LYMPHOCYTES # 3.3 10^3/ul (0.8-2.9); LYMPHOCYTES % 24.2 % (15.0-51.0); MEAN CORPUSCULAR HEMOGLOBIN 27.9 pg (29.0-33.0); MEAN CORPUSCULAR HGB CONC 33.1 g/dl (32.0-37.0); MEAN CORPUSCULAR VOLUME 84.4 fl (82.0-101.0); MEAN PLATELET VOLUME 10.1 fl (7.4-10.4); MONOCYTE # 0.9 10^3/ul (0.3-0.9); MONOCYTES % 6.5 % (0.0-11.0); NEUTROPHIL # 8.7 10^3/ul (1.6-7.5); NEUTROPHILS % 63.1 % (39.0-77.0); PLATELET COUNT 361 10^3/UL (140-415); RED BLOOD COUNT 3.08 10^6/ul (4.20-5.40); RED CELL DISTRIBUTION WIDTH 15.9 % (11.5-14.5)
[2017-08-02] MEDS: POTASSIUM CHLORIDE 40 MEQ in DEXTROSE 5%-0.45% NACL 1,000 ML IV (06:46)
[2017-08-02] MEDS: PANTOPRAZOLE 40 MG INJ IV ×2 (06:46→17:26)
[2017-08-02 06:51] LABS: MAGNESIUM 1.6 mg/dl (1.7-2.5)
[2017-08-02 06:55] LABS: ANION GAP 13 (8-16); BLOOD UREA NITROGEN 8 mg/dl (7-20); CALCIUM 9.2 mg/dl (8.4-10.2); CARBON DIOXIDE 21 mmol/L (21-31); CHLORIDE 108 mmol/L (97-110); CREATININE 0.86 mg/dl (0.44-1.00); GLUCOSE 105 mg/dl (70-220); POTASSIUM 4.1 mmol/L (3.5-5.1); SODIUM 138 mmol/L (135-144)
[2017-08-02] MEDS: hydrALAzine 20 MG INJ IV (09:23)
[2017-08-02] MEDS: MINOXIDIL 2.5 MG TAB PO ×2 (10:32→21:48)
[2017-08-02] MEDS: morphine 2 MG INJ IV ×3 (10:32→18:54)
[2017-08-02] MEDS: ACETAMINOPHEN 1000MG/100ML IV 100 ML IVPB (12:47)
[2017-08-02] MEDS: FUROSEMIDE 40 MG INJ IV (18:50)
[2017-08-02 19:48] LABS: ADD UMIC NO; UR ASCORBIC ACID NEGATIVE (NEGATIVE); UR BILIRUBIN (Dip) NEGATIVE (NEGATIVE); UR BLOOD (Dip) NEGATIVE (NEGATIVE); UR CLARITY CLEAR (CLEAR); UR COLOR YELLOW (YELLOW); UR GLUCOSE (Dip) NEGATIVE (NEGATIVE); UR KETONES (Dip) NEGATIVE (NEGATIVE); UR LEUKOCYTE ESTERASE (Dip) NEGATIVE Leu/ul (NEGATIVE); UR NITRITE (Dip) NEGATIVE (NEGATIVE); UR TOTAL PROTEIN (Dip) NEGATIVE (NEGATIVE); UR UROBILINOGEN (Dip) NEGATIVE (NEGATIVE)
[2017-08-02 20:10] LABS: ABNORMAL IP MESSAGE 1; HEMATOCRIT 28.3 % (37.0-47.0); HEMOGLOBIN 9.3 g/dl (12.0-16.0); MEAN CORPUSCULAR HEMOGLOBIN 28.3 pg (29.0-33.0); MEAN CORPUSCULAR HGB CONC 32.9 g/dl (32.0-37.0); MEAN PLATELET VOLUME 10.1 fl (7.4-10.4); PLATELET COUNT 409 10^3/UL (140-415); RED BLOOD COUNT 3.29 10^6/ul (4.20-5.40); RED CELL DISTRIBUTION WIDTH 15.9 % (11.5-14.5)
[2017-08-02] MEDS: ZOLPIDEM 5 MG TAB PO (20:25)
[2017-08-02 20:26] LABS: ADD MAN DIFF? YES; PATH REVIEW? YES; POSITIVE DIFF @See below
[2017-08-02 20:32] LABS: LACTIC ACID 2.4 mmol/L (0.5-2.0)
[2017-08-02 21:20] LABS: ANISOCYTOSIS 2+ (0-0); BAND NEUTROPHILS #M 2.1 10^3/ul (0.0-0.6); BAND NEUTROPHILS % (M) 6 % (0-4); EOSINOPHILS % (M) 1 % (0-7); LYMPHOCYTES #M 2.5 10^3/ul (0.8-2.9); LYMPHOCYTES % (M) 7 % (15-51); MICROCYTOSIS 2+ (0-0); MONOCYTE #M 1.8 10^3/ul (0.3-0.9); MONOCYTES % (M) 5 % (0-11); PLATELET ESTIMATE NORMAL; SEG NEUT #M 29.9 10^3/ul (1.7-7.5); SEGMENTED NEUTROPHILS (M) % 81 % (39-77)
[2017-08-02] MEDS: MEROPENEM 1 GM/50ML(PMX) 50 ML IVPB (21:49)
[2017-08-03] MEDS: MEROPENEM 1 GM/50ML(PMX) 50 ML IVPB ×3 (05:44→21:47)
[2017-08-03] MEDS: morphine 2 MG INJ IV (05:44)
[2017-08-03] MEDS: VANCOMYCIN HCL 250 MG/5ML POSYG PO ×4 (05:44→23:43)
[2017-08-03 07:15] LABS: ANION GAP 13 (8-16); BLOOD UREA NITROGEN 11 mg/dl (7-20); CALCIUM 9.4 mg/dl (8.4-10.2); CARBON DIOXIDE 24 mmol/L (21-31); CHLORIDE 104 mmol/L (97-110); CREATININE 1.09 mg/dl (0.44-1.00); GLUCOSE 99 mg/dl (70-220); POTASSIUM 4.1 mmol/L (3.5-5.1); SODIUM 137 mmol/L (135-144)
[2017-08-03] MEDS: PANTOPRAZOLE 40 MG INJ IV (09:21)
[2017-08-03] MEDS: traMADol 50 MG TAB PO ×2 (09:21→20:51)
[2017-08-03] MEDS: MINOXIDIL 2.5 MG TAB PO ×2 (09:22→20:52)
[2017-08-03] MEDS ORDERED: VANCOMYCIN IV PER PHARMACY XX (12:30)
[2017-08-03] MEDS: CASPOFUNGIN 70 MG in SOD CHLORIDE 0.9% 250 ML IVPB (13:20)
[2017-08-03 13:28] LABS: ADD MAN DIFF? NO
[2017-08-03 13:31] LABS: BASOPHIL # 0.1 10^3/ul (0.0-0.1); BASOPHILS % 0.3 % (0.0-2.0); EOSINOPHILS # 0.2 10^3/ul (0.0-0.5); EOSINOPHILS % 1.1 % (0.0-7.0); HEMATOCRIT 25.7 % (37.0-47.0); HEMOGLOBIN 8.4 g/dl (12.0-16.0); LYMPHOCYTES # 3.4 10^3/ul (0.8-2.9); LYMPHOCYTES % 19.6 % (15.0-51.0); MEAN CORPUSCULAR HEMOGLOBIN 28.1 pg (29.0-33.0); MEAN CORPUSCULAR HGB CONC 32.7 g/dl (32.0-37.0); MEAN PLATELET VOLUME 10.3 fl (7.4-10.4); MONOCYTE # 0.8 10^3/ul (0.3-0.9); MONOCYTES % 4.6 % (0.0-11.0); NEUTROPHIL # 12.7 10^3/ul (1.6-7.5); NEUTROPHILS % 72.9 % (39.0-77.0); PLATELET COUNT 394 10^3/UL (140-415); RED BLOOD COUNT 2.99 10^6/ul (4.20-5.40); RED CELL DISTRIBUTION WIDTH 16.2 % (11.5-14.5)
[2017-08-03 13:31] LABS: WHITE BLOOD COUNT 17.4 10^3/ul (4.8-10.8)
[2017-08-03 14:04] LABS: LACTIC ACID 1.4 mmol/L (0.5-2.0)
[2017-08-03] MEDS: VANCOMYCIN 1.5 GM in DEXTROSE 5% 500 ML IVPB (15:58)
[2017-08-03] MEDS ORDERED: FAT EMULSION 20% 250 ML IV (16:00)
[2017-08-03] MEDS: METOPROLOL 5 MG INJ IV (16:57)
[2017-08-03] MEDS: ZOLPIDEM 5 MG TAB PO (20:51)
[2017-08-03] MEDS: METOPROLOL 25 MG TAB PO (20:52)
[2017-08-03] MEDS: TPN 1,000 ML IV (21:47)
[2017-08-03] MEDS: FAT EMULSION 20% 250 ML IV (21:47)
[2017-08-04] MEDS: VANCOMYCIN HCL 250 MG/5ML POSYG PO ×3 (06:15→18:48)
[2017-08-04] MEDS: MEROPENEM 1 GM/50ML(PMX) 50 ML IVPB ×3 (06:15→21:22)
[2017-08-04 06:29] LABS: ADD MAN DIFF? NO
[2017-08-04 06:42] LABS: WHITE BLOOD COUNT 15.4 10^3/ul (4.8-10.8)
[2017-08-04 06:42] LABS: BASOPHIL # 0.1 10^3/ul (0.0-0.1); BASOPHILS % 0.4 % (0.0-2.0); EOSINOPHILS # 0.2 10^3/ul (0.0-0.5); HEMATOCRIT 26.6 % (37.0-47.0); HEMOGLOBIN 8.6 g/dl (12.0-16.0); LYMPHOCYTES # 2.9 10^3/ul (0.8-2.9); LYMPHOCYTES % 18.9 % (15.0-51.0); MEAN CORPUSCULAR HEMOGLOBIN 27.7 pg (29.0-33.0); MEAN CORPUSCULAR HGB CONC 32.3 g/dl (32.0-37.0); MEAN CORPUSCULAR VOLUME 85.5 fl (82.0-101.0); MEAN PLATELET VOLUME 10.1 fl (7.4-10.4); MONOCYTE # 0.7 10^3/ul (0.3-0.9); MONOCYTES % 4.7 % (0.0-11.0); NEUTROPHIL # 11.4 10^3/ul (1.6-7.5); NEUTROPHILS % 73.8 % (39.0-77.0); PLATELET COUNT 407 10^3/UL (140-415); RED BLOOD COUNT 3.11 10^6/ul (4.20-5.40); RED CELL DISTRIBUTION WIDTH 15.8 % (11.5-14.5)
[2017-08-04 06:52] LABS: ALANINE AMINOTRANSFERASE 26 IU/L (13-69); ALBUMIN/GLOBULIN RATIO 1.25; ALKALINE PHOSPHATASE 22 IU/L (42-121); ANION GAP 11 (8-16); ASPARTATE AMINO TRANSFERASE 12 IU/L (15-46); BLOOD UREA NITROGEN 17 mg/dl (7-20); CALCIUM 9.3 mg/dl (8.4-10.2); CARBON DIOXIDE 24 mmol/L (21-31); CHLORIDE 103 mmol/L (97-110); CREATININE 1.12 mg/dl (0.44-1.00); GLUCOSE 117 mg/dl (70-220); MAGNESIUM 1.5 mg/dl (1.7-2.5); PHOSPHORUS 4.4 mg/dl (2.5-4.9); POTASSIUM 4.2 mmol/L (3.5-5.1); SODIUM 134 mmol/L (135-144); TOTAL PROTEIN 5.4 g/dl (6.1-8.1); TRIGLYCERIDES 143 mg/dl (0-149)
[2017-08-04 07:28] LABS: PREALBUMIN 9.7 mg/dl (17.6-36.0)
[2017-08-04] MEDS: PANTOPRAZOLE 40 MG INJ IV (09:35)
[2017-08-04] MEDS: METOPROLOL 25 MG TAB PO ×2 (09:36→21:21)
[2017-08-04] MEDS: MINOXIDIL 2.5 MG TAB PO ×2 (09:36→21:21)
[2017-08-04] MEDS: traMADol 50 MG TAB PO ×2 (09:36→21:00)
[2017-08-04] MEDS: CASPOFUNGIN 50 MG in SOD CHLORIDE 0.9% 250 ML IVPB (13:09)
[2017-08-04] MEDS: morphine 2 MG INJ IV ×2 (13:10→18:51)
[2017-08-04] MEDS: VANCOMYCIN 750 MG in DEXTROSE 5% 150 ML IVPB (15:39)
[2017-08-04] MEDS: FAT EMULSION 20% 250 ML IV (15:39)
[2017-08-04] MEDS ORDERED: IOHEXOL 14.3 MG(I)/ML (ADULT) BTL PO (16:30)
[2017-08-04] MEDS: TPN 1,000 ML IV (21:16)
[2017-08-04] MEDS: ZOLPIDEM 5 MG TAB PO (22:41)
[2017-08-05] MEDS: VANCOMYCIN HCL 250 MG/5ML POSYG PO ×4 (00:17→21:18)
[2017-08-05] MEDS: AL HYDROX/MG HYDROX/SIMETH 30 ML CUP PO (00:19)
[2017-08-05] MEDS: morphine 2 MG INJ IV ×5 (03:36→21:09)
[2017-08-05] MEDS: MEROPENEM 1 GM/50ML(PMX) 50 ML IVPB ×3 (05:34→21:19)
[2017-08-05 07:02] LABS: PHOSPHORUS 3.6 mg/dl (2.5-4.9)
[2017-08-05 07:02] LABS: MAGNESIUM 1.8 mg/dl (1.7-2.5)
[2017-08-05 07:18] LABS: ALANINE AMINOTRANSFERASE 25 IU/L (13-69); ANION GAP 14 (8-16); ASPARTATE AMINO TRANSFERASE 13 IU/L (15-46); BLOOD UREA NITROGEN 20 mg/dl (7-20); CALCIUM 9.4 mg/dl (8.4-10.2); CARBON DIOXIDE 26 mmol/L (21-31); CHLORIDE 101 mmol/L (97-110); CREATININE 0.97 mg/dl (0.44-1.00); GLUCOSE 115 mg/dl (70-220); POTASSIUM 4.5 mmol/L (3.5-5.1); SODIUM 136 mmol/L (135-144); TOTAL PROTEIN 5.5 g/dl (6.1-8.1)
[2017-08-05 07:47] LABS: ALKALINE PHOSPHATASE < 20 IU/L (42-121)
[2017-08-05] MEDS: METOPROLOL 25 MG TAB PO (09:46)
[2017-08-05] MEDS: MINOXIDIL 2.5 MG TAB PO ×2 (09:46→21:16)
[2017-08-05] MEDS: PANTOPRAZOLE 40 MG INJ IV (09:46)
[2017-08-05] MEDS: traMADol 50 MG TAB PO ×2 (09:46→21:00)
[2017-08-05] MEDS: IOHEXOL 14.3 MG(I)/ML (ADULT) BTL PO (09:49)
[2017-08-05] MEDS: IOHEXOL 300MG/ML 150 ML BTL (12:32)
[2017-08-05] MEDS: SOD CHLORIDE 0.9% 100 ML (12:32)
[2017-08-05] MEDS: IODIXANOL LOCM 100 ML BTL (12:40)
[2017-08-05] MEDS: CASPOFUNGIN 50 MG in SOD CHLORIDE 0.9% 250 ML IVPB (15:06)
[2017-08-05] MEDS: VANCOMYCIN 750 MG in DEXTROSE 5% 150 ML IVPB (16:18)
[2017-08-05] MEDS: FAT EMULSION 20% 250 ML IV (16:27)
[2017-08-05] MEDS: TPN 1,000 ML IV ×2 (16:27→23:46)
[2017-08-05] MEDS: METOPROLOL 50 MG TAB PO (21:16)
[2017-08-05] MEDS ORDERED: metroNIDAZOLE 500 MG/NS (PMX) 100 ML IVPB (22:00)
[2017-08-06] MEDS: VANCOMYCIN HCL 250 MG/5ML POSYG PO ×4 (00:09→18:16)
[2017-08-06] MEDS: morphine 2 MG INJ IV ×5 (01:00→18:16)
[2017-08-06] MEDS: MEROPENEM 1 GM/50ML(PMX) 50 ML IVPB ×3 (06:10→22:23)
[2017-08-06] MEDS: TPN 1,000 ML IV ×3 (06:10→19:48)
[2017-08-06 07:45] LABS: ADD MAN DIFF? NO
[2017-08-06 07:51] LABS: WHITE BLOOD COUNT 10.3 10^3/ul (4.8-10.8)
[2017-08-06 07:51] LABS: ABNORMAL IP MESSAGE 1; BASOPHIL # 0.1 10^3/ul (0.0-0.1); BASOPHILS % 0.5 % (0.0-2.0); EOSINOPHILS # 0.4 10^3/ul (0.0-0.5); EOSINOPHILS % 4.1 % (0.0-7.0); HEMATOCRIT 26.2 % (37.0-47.0); HEMOGLOBIN 8.3 g/dl (12.0-16.0); LYMPHOCYTES # 2.6 10^3/ul (0.8-2.9); LYMPHOCYTES % 24.8 % (15.0-51.0); MEAN CORPUSCULAR HEMOGLOBIN 27.7 pg (29.0-33.0); MEAN CORPUSCULAR HGB CONC 31.7 g/dl (32.0-37.0); MEAN CORPUSCULAR VOLUME 87.3 fl (82.0-101.0); MEAN PLATELET VOLUME 10.2 fl (7.4-10.4); MONOCYTE # 0.6 10^3/ul (0.3-0.9); NEUTROPHIL # 6.6 10^3/ul (1.6-7.5); NEUTROPHILS % 63.8 % (39.0-77.0); PLATELET COUNT 456 10^3/UL (140-415); RED CELL DISTRIBUTION WIDTH 15.4 % (11.5-14.5)
[2017-08-06 07:54] LABS: POSITIVE DIFF @See below
[2017-08-06 08:25] LABS: ANION GAP 14 (8-16); BLOOD UREA NITROGEN 26 mg/dl (7-20); CALCIUM 9.5 mg/dl (8.4-10.2); CARBON DIOXIDE 28 mmol/L (21-31); CHLORIDE 99 mmol/L (97-110); CREATININE 0.83 mg/dl (0.44-1.00); GLUCOSE 98 mg/dl (70-220); PHOSPHORUS 3.9 mg/dl (2.5-4.9); SODIUM 136 mmol/L (135-144)
[2017-08-06 08:32] LABS: POTASSIUM 5.1 mmol/L (3.5-5.1)
[2017-08-06] MEDS: PANTOPRAZOLE 40 MG INJ IV (09:37)
[2017-08-06] MEDS: MINOXIDIL 2.5 MG TAB PO ×2 (09:37→22:32)
[2017-08-06] MEDS: METOPROLOL 50 MG TAB PO ×2 (09:38→22:31)
[2017-08-06] MEDS: traMADol 50 MG TAB PO ×2 (09:38→22:31)
[2017-08-06] MEDS: CLONIDINE 0.3 MG/24 HR PATCH TRANSDERM (13:30)
[2017-08-06] MEDS: CASPOFUNGIN 50 MG in SOD CHLORIDE 0.9% 250 ML IVPB (14:26)
[2017-08-06] MEDS: VANCOMYCIN 750 MG in DEXTROSE 5% 150 ML IVPB (16:14)
[2017-08-06] MEDS: FAT EMULSION 20% 250 ML IV (16:24)
[2017-08-06] MEDS: ZOLPIDEM 5 MG TAB PO (22:30)
[2017-08-07] MEDS: VANCOMYCIN HCL 250 MG/5ML POSYG PO ×4 (00:26→17:52)
[2017-08-07] MEDS: morphine 2 MG INJ IV ×4 (01:54→17:52)
[2017-08-07] MEDS: MEROPENEM 1 GM/50ML(PMX) 50 ML IVPB ×3 (06:11→21:27)
[2017-08-07 07:27] LABS: ADD MAN DIFF? NO
[2017-08-07 07:33] LABS: ABNORMAL IP MESSAGE 1; BASOPHIL # 0.1 10^3/ul (0.0-0.1); BASOPHILS % 0.8 % (0.0-2.0); EOSINOPHILS # 0.4 10^3/ul (0.0-0.5); EOSINOPHILS % 4.8 % (0.0-7.0); HEMATOCRIT 26.1 % (37.0-47.0); HEMOGLOBIN 8.3 g/dl (12.0-16.0); LYMPHOCYTES # 2.3 10^3/ul (0.8-2.9); LYMPHOCYTES % 28.4 % (15.0-51.0); MEAN CORPUSCULAR HEMOGLOBIN 27.7 pg (29.0-33.0); MEAN CORPUSCULAR HGB CONC 31.8 g/dl (32.0-37.0); MEAN PLATELET VOLUME 9.6 fl (7.4-10.4); MONOCYTE # 0.6 10^3/ul (0.3-0.9); NEUTROPHIL # 4.6 10^3/ul (1.6-7.5); NEUTROPHILS % 57.6 % (39.0-77.0); PLATELET COUNT 430 10^3/UL (140-415)
[2017-08-07 07:48] LABS: POSITIVE DIFF @See below
[2017-08-07 07:51] LABS: ANION GAP 12 (8-16); BLOOD UREA NITROGEN 28 mg/dl (7-20); CALCIUM 9.3 mg/dl (8.4-10.2); CARBON DIOXIDE 32 mmol/L (21-31); CHLORIDE 97 mmol/L (97-110); CREATININE 0.79 mg/dl (0.44-1.00); GLUCOSE 114 mg/dl (70-220); PHOSPHORUS 3.6 mg/dl (2.5-4.9); POTASSIUM 4.5 mmol/L (3.5-5.1); SODIUM 136 mmol/L (135-144)
[2017-08-07] MEDS: PANTOPRAZOLE 40 MG INJ IV (09:09)
[2017-08-07] MEDS: traMADol 50 MG TAB PO ×2 (09:10→21:27)
[2017-08-07] MEDS: MINOXIDIL 2.5 MG TAB PO ×2 (09:10→21:28)
[2017-08-07] MEDS: METOPROLOL 50 MG TAB PO ×2 (09:11→21:29)
[2017-08-07] MEDS: TPN 1,000 ML IV ×2 (09:11→23:37)
[2017-08-07] MEDS: CASPOFUNGIN 50 MG in SOD CHLORIDE 0.9% 250 ML IVPB (14:15)
[2017-08-07] MEDS: VANCOMYCIN 750 MG in DEXTROSE 5% 150 ML IVPB (15:30)
[2017-08-07] MEDS: FAT EMULSION 20% 250 ML IV (16:15)
[2017-08-07] MEDS: ZOLPIDEM 5 MG TAB PO (22:12)
[2017-08-08] MEDS: VANCOMYCIN HCL 250 MG/5ML POSYG PO ×4 (01:51→18:35)
[2017-08-08] MEDS: morphine 2 MG INJ IV ×3 (04:14→16:25)
[2017-08-08] MEDS: MEROPENEM 1 GM/50ML(PMX) 50 ML IVPB ×3 (06:25→22:20)
[2017-08-08] MEDS: PANTOPRAZOLE 40 MG INJ IV (08:24)
[2017-08-08] MEDS: METOPROLOL 50 MG TAB PO ×2 (08:25→22:19)
[2017-08-08] MEDS: traMADol 50 MG TAB PO ×2 (08:25→22:18)
[2017-08-08] MEDS: MINOXIDIL 2.5 MG TAB PO ×2 (08:25→22:18)
[2017-08-08 09:11] LABS: ADD MAN DIFF? NO
[2017-08-08 09:40] LABS: WHITE BLOOD COUNT 7.1 10^3/ul (4.8-10.8)
[2017-08-08 09:40] LABS: BASOPHILS % 0.4 % (0.0-2.0); EOSINOPHILS # 0.2 10^3/ul (0.0-0.5); EOSINOPHILS % 2.1 % (0.0-7.0); HEMATOCRIT 26.5 % (37.0-47.0); HEMOGLOBIN 8.5 g/dl (12.0-16.0); LYMPHOCYTES # 2.3 10^3/ul (0.8-2.9); LYMPHOCYTES % 31.8 % (15.0-51.0); MEAN CORPUSCULAR HGB CONC 32.1 g/dl (32.0-37.0); MEAN CORPUSCULAR VOLUME 87.2 fl (82.0-101.0); MEAN PLATELET VOLUME 9.9 fl (7.4-10.4); MONOCYTE # 0.6 10^3/ul (0.3-0.9); MONOCYTES % 8.9 % (0.0-11.0); NEUTROPHILS % 56.5 % (39.0-77.0); PLATELET COUNT 438 10^3/UL (140-415); RED BLOOD COUNT 3.04 10^6/ul (4.20-5.40); RED CELL DISTRIBUTION WIDTH 14.5 % (11.5-14.5)
[2017-08-08 09:45] LABS: ANION GAP 8 (8-16); BLOOD UREA NITROGEN 30 mg/dl (7-20); CALCIUM 9.8 mg/dl (8.4-10.2); CARBON DIOXIDE 35 mmol/L (21-31); CHLORIDE 95 mmol/L (97-110); CREATININE 0.76 mg/dl (0.44-1.00); GLUCOSE 122 mg/dl (70-220); MAGNESIUM 2.1 mg/dl (1.7-2.5); PHOSPHORUS 3.5 mg/dl (2.5-4.9); POTASSIUM 4.4 mmol/L (3.5-5.1); SODIUM 134 mmol/L (135-144)
[2017-08-08] MEDS: TPN 1,000 ML IV ×2 (09:56→22:36)
[2017-08-08] MEDS: CLONIDINE 0.2 MG/24 HR PATCH TRANSDERM (13:02)
[2017-08-08] MEDS: CASPOFUNGIN 50 MG in SOD CHLORIDE 0.9% 250 ML IVPB (13:12)
[2017-08-08] MEDS: VANCOMYCIN 750 MG in DEXTROSE 5% 150 ML IVPB (16:25)
[2017-08-08] MEDS: FAT EMULSION 20% 250 ML IV (16:25)
[2017-08-08] MEDS: ZOLPIDEM 5 MG TAB PO (22:36)
[2017-08-09] MEDS: MEROPENEM 1 GM/50ML(PMX) 50 ML IVPB ×3 (05:12→21:45)
[2017-08-09] MEDS: VANCOMYCIN HCL 250 MG/5ML POSYG PO ×4 (05:12→17:00)
[2017-08-09] MEDS: morphine 2 MG INJ IV ×3 (05:12→20:26)
[2017-08-09 08:44] LABS: ADD MAN DIFF? NO
[2017-08-09] MEDS: PANTOPRAZOLE 40 MG INJ IV (08:47)
[2017-08-09] MEDS: METOPROLOL 50 MG TAB PO ×2 (08:48→21:44)
[2017-08-09] MEDS: MINOXIDIL 2.5 MG TAB PO ×2 (08:48→21:43)
[2017-08-09] MEDS: traMADol 50 MG TAB PO ×2 (08:49→21:45)
[2017-08-09 08:51] LABS: WHITE BLOOD COUNT 6.5 10^3/ul (4.8-10.8)
[2017-08-09 08:51] LABS: BASOPHIL # 0.1 10^3/ul (0.0-0.1); BASOPHILS % 0.8 % (0.0-2.0); EOSINOPHILS # 0.2 10^3/ul (0.0-0.5); EOSINOPHILS % 2.3 % (0.0-7.0); HEMATOCRIT 27.2 % (37.0-47.0); HEMOGLOBIN 8.5 g/dl (12.0-16.0); LYMPHOCYTES # 2.2 10^3/ul (0.8-2.9); LYMPHOCYTES % 34.5 % (15.0-51.0); MEAN CORPUSCULAR HEMOGLOBIN 27.2 pg (29.0-33.0); MEAN CORPUSCULAR HGB CONC 31.3 g/dl (32.0-37.0); MEAN CORPUSCULAR VOLUME 86.9 fl (82.0-101.0); MEAN PLATELET VOLUME 9.9 fl (7.4-10.4); MONOCYTE # 0.5 10^3/ul (0.3-0.9); MONOCYTES % 8.2 % (0.0-11.0); NEUTROPHIL # 3.5 10^3/ul (1.6-7.5); NEUTROPHILS % 53.9 % (39.0-77.0); PLATELET COUNT 417 10^3/UL (140-415); RED BLOOD COUNT 3.13 10^6/ul (4.20-5.40); RED CELL DISTRIBUTION WIDTH 14.4 % (11.5-14.5)
[2017-08-09 09:25] LABS: BLOOD UREA NITROGEN 33 mg/dl (7-20); CALCIUM 9.3 mg/dl (8.4-10.2); CARBON DIOXIDE 32 mmol/L (21-31); CHLORIDE 97 mmol/L (97-110); CREATININE 0.66 mg/dl (0.44-1.00); GLUCOSE 115 mg/dl (70-220); SODIUM 135 mmol/L (135-144)
[2017-08-09 09:26] LABS: PHOSPHORUS 3.9 mg/dl (2.5-4.9)
[2017-08-09 09:30] LABS: ANION GAP 11 (8-16); POTASSIUM 5.2 mmol/L (3.5-5.1)
[2017-08-09] MEDS: TPN 1,000 ML IV ×2 (09:57→22:44)
[2017-08-09] MEDS: CASPOFUNGIN 50 MG in SOD CHLORIDE 0.9% 250 ML IVPB (13:39)
[2017-08-09] MEDS: FAT EMULSION 20% 250 ML IV (15:04)
[2017-08-09 16:29] LABS: VANCOMYCIN,TROUGH 11.4 ug/ml (10.0-20.0)
[2017-08-09] MEDS: NYSTATIN SUSP 5 ML CUP PO ×2 (17:00→21:43)
[2017-08-09] MEDS: VANCOMYCIN 750 MG in DEXTROSE 5% 150 ML IVPB (17:01)
[2017-08-09] MEDS: ZOLPIDEM 5 MG TAB PO (23:05)
[2017-08-10] MEDS: morphine 2 MG INJ IV ×4 (04:38→23:22)
[2017-08-10] MEDS: VANCOMYCIN HCL 250 MG/5ML POSYG PO ×5 (06:21→23:30)
[2017-08-10] MEDS: MEROPENEM 1 GM/50ML(PMX) 50 ML IVPB ×3 (06:21→21:46)
[2017-08-10 07:47] LABS: ANION GAP 12 (8-16); BLOOD UREA NITROGEN 29 mg/dl (7-20); CALCIUM 9.1 mg/dl (8.4-10.2); CARBON DIOXIDE 28 mmol/L (21-31); CHLORIDE 102 mmol/L (97-110); CREATININE 0.82 mg/dl (0.44-1.00); MAGNESIUM 2.4 mg/dl (1.7-2.5); PHOSPHORUS 4.9 mg/dl (2.5-4.9); POTASSIUM 4.6 mmol/L (3.5-5.1); SODIUM 137 mmol/L (135-144)
[2017-08-10 07:58] LABS: GLUCOSE 499 mg/dl (70-220)
[2017-08-10] MEDS: TPN 1,000 ML IV ×2 (09:02→21:46)
[2017-08-10] MEDS: traMADol 50 MG TAB PO ×2 (09:03→17:21)
[2017-08-10] MEDS: METOPROLOL 50 MG TAB PO ×2 (09:03→20:49)
[2017-08-10] MEDS: NYSTATIN SUSP 5 ML CUP PO ×4 (09:03→20:48)
[2017-08-10] MEDS: PANTOPRAZOLE 40 MG INJ IV (09:03)
[2017-08-10] MEDS: MINOXIDIL 2.5 MG TAB PO ×2 (09:03→20:48)
[2017-08-10 09:22] LABS: GLUCOSE 120 mg/dl (70-220)
[2017-08-10] MEDS: CASPOFUNGIN 50 MG in SOD CHLORIDE 0.9% 250 ML IVPB (13:12)
[2017-08-10] MEDS: VANCOMYCIN 750 MG in DEXTROSE 5% 150 ML IVPB (15:18)
[2017-08-10] MEDS: FAT EMULSION 20% 250 ML IV (15:22)
[2017-08-10] MEDS: ZOLPIDEM 5 MG TAB PO (23:28)
[2017-08-11] MEDS: MEROPENEM 1 GM/50ML(PMX) 50 ML IVPB ×3 (05:41→23:05)
[2017-08-11] MEDS: VANCOMYCIN HCL 250 MG/5ML POSYG PO ×3 (05:42→18:21)
[2017-08-11 06:23] LABS: ADD MAN DIFF? NO
[2017-08-11 06:29] LABS: WHITE BLOOD COUNT 6.5 10^3/ul (4.8-10.8)
[2017-08-11 06:29] LABS: BASOPHILS % 0.6 % (0.0-2.0); EOSINOPHILS # 0.2 10^3/ul (0.0-0.5); EOSINOPHILS % 3.7 % (0.0-7.0); HEMATOCRIT 24.1 % (37.0-47.0); HEMOGLOBIN 7.6 g/dl (12.0-16.0); LYMPHOCYTES # 2.5 10^3/ul (0.8-2.9); LYMPHOCYTES % 38.3 % (15.0-51.0); MEAN CORPUSCULAR HEMOGLOBIN 27.4 pg (29.0-33.0); MEAN CORPUSCULAR HGB CONC 31.5 g/dl (32.0-37.0); MEAN PLATELET VOLUME 10.2 fl (7.4-10.4); MONOCYTE # 0.5 10^3/ul (0.3-0.9); MONOCYTES % 7.4 % (0.0-11.0); NEUTROPHIL # 3.2 10^3/ul (1.6-7.5); NEUTROPHILS % 49.7 % (39.0-77.0); PLATELET COUNT 348 10^3/UL (140-415); RED BLOOD COUNT 2.77 10^6/ul (4.20-5.40); RED CELL DISTRIBUTION WIDTH 14.2 % (11.5-14.5)
[2017-08-11 07:08] LABS: ANION GAP 11 (8-16); BLOOD UREA NITROGEN 33 mg/dl (7-20); CALCIUM 9.9 mg/dl (8.4-10.2); CARBON DIOXIDE 28 mmol/L (21-31); CHLORIDE 103 mmol/L (97-110); CREATININE 0.73 mg/dl (0.44-1.00); GLUCOSE 118 mg/dl (70-220); MAGNESIUM 2.1 mg/dl (1.7-2.5); PHOSPHORUS 3.8 mg/dl (2.5-4.9); POTASSIUM 4.1 mmol/L (3.5-5.1); SODIUM 138 mmol/L (135-144)
[2017-08-11] MEDS: morphine 2 MG INJ IV ×3 (07:46→18:24)
[2017-08-11] MEDS: NYSTATIN SUSP 5 ML CUP PO ×4 (09:27→20:28)
[2017-08-11] MEDS: MINOXIDIL 2.5 MG TAB PO ×2 (09:28→20:28)
[2017-08-11] MEDS: PANTOPRAZOLE 40 MG INJ IV (09:29)
[2017-08-11] MEDS: METOPROLOL 50 MG TAB PO ×2 (09:29→20:28)
[2017-08-11] MEDS ORDERED: VITAMIN A & D 5 GM OINT PACKET TOP (10:47)
[2017-08-11] MEDS: TPN 1,000 ML IV ×2 (11:04→20:31)
[2017-08-11] MEDS: CASPOFUNGIN 50 MG in SOD CHLORIDE 0.9% 250 ML IVPB (12:37)
[2017-08-11] MEDS: VANCOMYCIN 750 MG in DEXTROSE 5% 150 ML IVPB (16:29)
[2017-08-11] MEDS: FAT EMULSION 20% 250 ML IV (16:42)
[2017-08-11] MEDS: traMADol 50 MG TAB PO (16:43)
[2017-08-11] MEDS: ZOLPIDEM 5 MG TAB PO (23:05)
[2017-08-12] MEDS: TPN 1,000 ML IV ×2 (01:09→13:26)
[2017-08-12] MEDS: VANCOMYCIN HCL 250 MG/5ML POSYG PO ×5 (02:05→17:41)
[2017-08-12] MEDS: ACCU-CHEK XX ×3 (05:00→21:20)
[2017-08-12 06:27] LABS: ADD MAN DIFF? NO
[2017-08-12 06:29] LABS: WHITE BLOOD COUNT 5.5 10^3/ul (4.8-10.8)
[2017-08-12 06:29] LABS: BASOPHILS % 0.7 % (0.0-2.0); EOSINOPHILS # 0.3 10^3/ul (0.0-0.5); EOSINOPHILS % 4.5 % (0.0-7.0); HEMATOCRIT 23.8 % (37.0-47.0); HEMOGLOBIN 7.5 g/dl (12.0-16.0); LYMPHOCYTES # 2.2 10^3/ul (0.8-2.9); LYMPHOCYTES % 39.4 % (15.0-51.0); MEAN CORPUSCULAR HEMOGLOBIN 27.7 pg (29.0-33.0); MEAN CORPUSCULAR HGB CONC 31.5 g/dl (32.0-37.0); MEAN CORPUSCULAR VOLUME 87.8 fl (82.0-101.0); MEAN PLATELET VOLUME 10.2 fl (7.4-10.4); MONOCYTE # 0.4 10^3/ul (0.3-0.9); MONOCYTES % 7.9 % (0.0-11.0); NEUTROPHIL # 2.6 10^3/ul (1.6-7.5); NEUTROPHILS % 47.1 % (39.0-77.0); PLATELET COUNT 300 10^3/UL (140-415); RED BLOOD COUNT 2.71 10^6/ul (4.20-5.40); RED CELL DISTRIBUTION WIDTH 14.2 % (11.5-14.5)
[2017-08-12] MEDS: MEROPENEM 1 GM/50ML(PMX) 50 ML IVPB ×3 (06:35→21:20)
[2017-08-12] MEDS: morphine 2 MG INJ IV ×2 (06:35→15:10)
[2017-08-12 07:03] LABS: ANION GAP 13 (8-16); BLOOD UREA NITROGEN 34 mg/dl (7-20); CALCIUM 9.3 mg/dl (8.4-10.2); CARBON DIOXIDE 26 mmol/L (21-31); CHLORIDE 106 mmol/L (97-110); CREATININE 0.72 mg/dl (0.44-1.00); GLUCOSE 114 mg/dl (70-220); SODIUM 141 mmol/L (135-144)
[2017-08-12] MEDS: NYSTATIN SUSP 5 ML CUP PO ×4 (08:19→21:20)
[2017-08-12] MEDS: METOPROLOL 50 MG TAB PO ×2 (08:19→21:19)
[2017-08-12] MEDS: PANTOPRAZOLE 40 MG INJ IV (08:19)
[2017-08-12] MEDS: MINOXIDIL 2.5 MG TAB PO ×2 (08:20→21:19)
[2017-08-12] MEDS: traMADol 50 MG TAB PO (08:24)
[2017-08-12] MEDS: SOD CHLORIDE 0.9% 250 ML IV* (11:24)
[2017-08-12] MEDS: CASPOFUNGIN 50 MG in SOD CHLORIDE 0.9% 250 ML IVPB (14:44)
[2017-08-12] MEDS: VANCOMYCIN 750 MG in DEXTROSE 5% 150 ML IVPB (16:12)
[2017-08-12] MEDS: FAT EMULSION 20% 250 ML IV (17:45)
[2017-08-12 18:30] LABS: IMMEDIATE SPIN CROSSMATCH 1 2
[2017-08-12] MEDS: ZOLPIDEM 5 MG TAB PO (22:28)
[2017-08-13] MEDS: AL HYDROX/MG HYDROX/SIMETH 30 ML CUP PO (02:37)
[2017-08-13] MEDS: TPN 1,000 ML IV ×3 (02:38→21:19)
[2017-08-13] MEDS: morphine 2 MG INJ IV ×2 (04:05→14:39)
[2017-08-13] MEDS: VANCOMYCIN HCL 250 MG/5ML POSYG PO ×4 (05:36→17:53)
[2017-08-13] MEDS: MEROPENEM 1 GM/50ML(PMX) 50 ML IVPB ×3 (05:36→21:35)
[2017-08-13 06:08] LABS: ADD MAN DIFF? NO
[2017-08-13 06:17] LABS: BASOPHIL # 0.1 10^3/ul (0.0-0.1); BASOPHILS % 0.8 % (0.0-2.0); EOSINOPHILS # 0.3 10^3/ul (0.0-0.5); EOSINOPHILS % 4.7 % (0.0-7.0); HEMATOCRIT 26.1 % (37.0-47.0); HEMOGLOBIN 8.4 g/dl (12.0-16.0); LYMPHOCYTES # 2.1 10^3/ul (0.8-2.9); LYMPHOCYTES % 34.9 % (15.0-51.0); MEAN CORPUSCULAR HEMOGLOBIN 27.6 pg (29.0-33.0); MEAN CORPUSCULAR HGB CONC 32.2 g/dl (32.0-37.0); MEAN CORPUSCULAR VOLUME 85.9 fl (82.0-101.0); MEAN PLATELET VOLUME 10.3 fl (7.4-10.4); MONOCYTE # 0.4 10^3/ul (0.3-0.9); NEUTROPHIL # 3.2 10^3/ul (1.6-7.5); NEUTROPHILS % 53.3 % (39.0-77.0); PLATELET COUNT 286 10^3/UL (140-415); RED BLOOD COUNT 3.04 10^6/ul (4.20-5.40); RED CELL DISTRIBUTION WIDTH 14.6 % (11.5-14.5)
[2017-08-13 06:58] LABS: ANION GAP 11 (8-16); BLOOD UREA NITROGEN 35 mg/dl (7-20); CALCIUM 9.3 mg/dl (8.4-10.2); CARBON DIOXIDE 26 mmol/L (21-31); CHLORIDE 109 mmol/L (97-110); CREATININE 0.71 mg/dl (0.44-1.00); GLUCOSE 120 mg/dl (70-220); SODIUM 142 mmol/L (135-144)
[2017-08-13] MEDS: PANTOPRAZOLE 40 MG INJ IV (08:55)
[2017-08-13] MEDS: MINOXIDIL 2.5 MG TAB PO ×2 (08:56→21:20)
[2017-08-13] MEDS: traMADol 50 MG TAB PO ×2 (08:57→18:26)
[2017-08-13] MEDS: NYSTATIN SUSP 5 ML CUP PO ×4 (08:57→21:19)
[2017-08-13] MEDS: METOPROLOL 50 MG TAB PO ×2 (08:57→21:20)
[2017-08-13] MEDS: ACCU-CHEK XX ×2 (09:08→21:19)
[2017-08-13] MEDS: CLONIDINE 0.3 MG/24 HR PATCH TRANSDERM (13:41)
[2017-08-13] MEDS: CASPOFUNGIN 50 MG in SOD CHLORIDE 0.9% 250 ML IVPB (14:32)
[2017-08-13] MEDS: VANCOMYCIN 750 MG in DEXTROSE 5% 150 ML IVPB (17:53)
[2017-08-13] MEDS: FAT EMULSION 20% 250 ML IV (17:53)
[2017-08-13] MEDS: ZOLPIDEM 5 MG TAB PO (21:35)
[2017-08-14] MEDS: VANCOMYCIN HCL 250 MG/5ML POSYG PO ×5 (00:35→23:36)
[2017-08-14] MEDS: MEROPENEM 1 GM/50ML(PMX) 50 ML IVPB ×3 (05:54→21:07)
[2017-08-14] MEDS: morphine 2 MG INJ IV ×2 (05:54→17:32)
[2017-08-14 06:59] LABS: ANION GAP 13 (8-16); BLOOD UREA NITROGEN 34 mg/dl (7-20); CALCIUM 9.5 mg/dl (8.4-10.2); CARBON DIOXIDE 25 mmol/L (21-31); CHLORIDE 111 mmol/L (97-110); GLUCOSE 105 mg/dl (70-220); POTASSIUM 3.7 mmol/L (3.5-5.1); SODIUM 145 mmol/L (135-144)
[2017-08-14] MEDS: PANTOPRAZOLE 40 MG INJ IV (08:50)
[2017-08-14] MEDS: MINOXIDIL 2.5 MG TAB PO ×2 (08:51→21:04)
[2017-08-14] MEDS: NYSTATIN SUSP 5 ML CUP PO ×5 (08:51→21:03)
[2017-08-14] MEDS: METOPROLOL 50 MG TAB PO ×2 (08:52→21:03)
[2017-08-14] MEDS: traMADol 50 MG TAB PO ×2 (08:52→15:19)
[2017-08-14] MEDS: ACCU-CHEK XX ×2 (08:52→21:03)
[2017-08-14] MEDS: TPN 1,000 ML IV ×3 (10:06→23:40)
[2017-08-14] MEDS: IOHEXOL 14.3 MG(I)/ML (ADULT) BTL PO (11:45)
[2017-08-14] MEDS: ACETAMINOPHEN 1000MG/100ML IV 100 ML IVPB (11:45)
[2017-08-14] MEDS: CASPOFUNGIN 50 MG in SOD CHLORIDE 0.9% 250 ML IVPB (14:14)
[2017-08-14] MEDS: VANCOMYCIN 750 MG in DEXTROSE 5% 150 ML IVPB (15:19)
[2017-08-14] MEDS: FAT EMULSION 20% 250 ML IV (15:39)
[2017-08-14] MEDS: ZOLPIDEM 5 MG TAB PO (21:23)
[2017-08-15] MEDS: VANCOMYCIN HCL 250 MG/5ML POSYG PO ×4 (05:32→23:15)
[2017-08-15] MEDS: MEROPENEM 1 GM/50ML(PMX) 50 ML IVPB ×3 (05:32→21:51)
[2017-08-15] MEDS: traMADol 50 MG TAB PO ×2 (05:35→14:59)
[2017-08-15 06:11] LABS: ADD MAN DIFF? NO
[2017-08-15 06:15] LABS: BASOPHILS % 0.7 % (0.0-2.0); EOSINOPHILS # 0.3 10^3/ul (0.0-0.5); EOSINOPHILS % 4.8 % (0.0-7.0); HEMATOCRIT 25.7 % (37.0-47.0); HEMOGLOBIN 7.6 g/dl (12.0-16.0); LYMPHOCYTES # 1.7 10^3/ul (0.8-2.9); LYMPHOCYTES % 31.4 % (15.0-51.0); MEAN CORPUSCULAR HEMOGLOBIN 27.1 pg (29.0-33.0); MEAN CORPUSCULAR HGB CONC 29.6 g/dl (32.0-37.0); MEAN CORPUSCULAR VOLUME 91.8 fl (82.0-101.0); MEAN PLATELET VOLUME 10.6 fl (7.4-10.4); MONOCYTE # 0.3 10^3/ul (0.3-0.9); MONOCYTES % 5.3 % (0.0-11.0); NEUTROPHIL # 3.1 10^3/ul (1.6-7.5); NEUTROPHILS % 57.4 % (39.0-77.0); PLATELET COUNT 211 10^3/UL (140-415); RED CELL DISTRIBUTION WIDTH 14.8 % (11.5-14.5)
[2017-08-15 06:15] LABS: WHITE BLOOD COUNT 5.4 10^3/ul (4.8-10.8)
[2017-08-15 06:46] LABS: TRIGLYCERIDES 103 mg/dl (0-149)
[2017-08-15 06:52] LABS: ANION GAP 9 (8-16); BLOOD UREA NITROGEN 29 mg/dl (7-20); CALCIUM 9.4 mg/dl (8.4-10.2); CARBON DIOXIDE 23 mmol/L (21-31); CHLORIDE 114 mmol/L (97-110); CREATININE 0.87 mg/dl (0.44-1.00); MAGNESIUM 2.8 mg/dl (1.7-2.5); PHOSPHORUS 2.6 mg/dl (2.5-4.9); SODIUM 142 mmol/L (135-144)
[2017-08-15 07:27] LABS: GLUCOSE 806 mg/dl (70-220)
[2017-08-15] MEDS: morphine 2 MG INJ IV ×2 (07:43→16:16)
[2017-08-15] MEDS: TPN 1,000 ML IV ×3 (08:24→23:15)
[2017-08-15] MEDS: ACCU-CHEK XX ×2 (09:00→20:32)
[2017-08-15 09:14] LABS: GLUCOSE 113 mg/dl (70-220)
[2017-08-15] MEDS: METOPROLOL 50 MG TAB PO ×2 (09:57→20:29)
[2017-08-15] MEDS: NYSTATIN SUSP 5 ML CUP PO ×4 (09:57→20:29)
[2017-08-15] MEDS: PANTOPRAZOLE 40 MG INJ IV (09:57)
[2017-08-15] MEDS: MINOXIDIL 2.5 MG TAB PO ×2 (09:57→20:29)
[2017-08-15] MEDS: CASPOFUNGIN 50 MG in SOD CHLORIDE 0.9% 250 ML IVPB (13:17)
[2017-08-15] MEDS: CLONIDINE 0.2 MG/24 HR PATCH TRANSDERM (13:18)
[2017-08-15 15:35] LABS: ANION GAP 10 (8-16); BLOOD UREA NITROGEN 34 mg/dl (7-20); CALCIUM 9.6 mg/dl (8.4-10.2); CARBON DIOXIDE 26 mmol/L (21-31); CHLORIDE 111 mmol/L (97-110); GLUCOSE 99 mg/dl (70-220); PHOSPHORUS 2.9 mg/dl (2.5-4.9); POTASSIUM 3.6 mmol/L (3.5-5.1); SODIUM 143 mmol/L (135-144)
[2017-08-15 15:39] LABS: VANCOMYCIN,TROUGH 12.5 ug/ml (10.0-20.0)
[2017-08-15] MEDS: FAT EMULSION 20% 250 ML IV (15:50)
[2017-08-15] MEDS: VANCOMYCIN 750 MG in DEXTROSE 5% 150 ML IVPB (16:16)
[2017-08-15] MEDS: ZOLPIDEM 5 MG TAB PO (21:51)
[2017-08-16] MEDS: morphine 2 MG INJ IV (04:39)
[2017-08-16] MEDS: MEROPENEM 1 GM/50ML(PMX) 50 ML IVPB ×3 (05:40→21:27)
[2017-08-16] MEDS: VANCOMYCIN HCL 250 MG/5ML POSYG PO ×3 (05:40→17:56)
[2017-08-16 06:25] LABS: ADD MAN DIFF? NO
[2017-08-16 06:33] LABS: BASOPHIL # 0.1 10^3/ul (0.0-0.1); EOSINOPHILS # 0.3 10^3/ul (0.0-0.5); EOSINOPHILS % 4.3 % (0.0-7.0); HEMATOCRIT 28.1 % (37.0-47.0); LYMPHOCYTES % 32.8 % (15.0-51.0); MEAN CORPUSCULAR HEMOGLOBIN 27.7 pg (29.0-33.0); MEAN CORPUSCULAR VOLUME 86.5 fl (82.0-101.0); MEAN PLATELET VOLUME 10.4 fl (7.4-10.4); MONOCYTE # 0.4 10^3/ul (0.3-0.9); MONOCYTES % 6.2 % (0.0-11.0); NEUTROPHIL # 3.3 10^3/ul (1.6-7.5); NEUTROPHILS % 55.4 % (39.0-77.0); PLATELET COUNT 207 10^3/UL (140-415); RED BLOOD COUNT 3.25 10^6/ul (4.20-5.40); RED CELL DISTRIBUTION WIDTH 14.5 % (11.5-14.5)
[2017-08-16] MEDS: TPN 1,000 ML IV ×2 (06:52→12:35)
[2017-08-16 07:00] LABS: ANION GAP 10 (8-16); BLOOD UREA NITROGEN 35 mg/dl (7-20); CALCIUM 9.6 mg/dl (8.4-10.2); CARBON DIOXIDE 26 mmol/L (21-31); CHLORIDE 113 mmol/L (97-110); GLUCOSE 113 mg/dl (70-220); POTASSIUM 3.4 mmol/L (3.5-5.1); SODIUM 146 mmol/L (135-144)
[2017-08-16] MEDS: MINOXIDIL 2.5 MG TAB PO ×2 (09:35→21:26)
[2017-08-16] MEDS: NYSTATIN SUSP 5 ML CUP PO ×4 (09:35→21:26)
[2017-08-16] MEDS: PANTOPRAZOLE 40 MG INJ IV (09:35)
[2017-08-16] MEDS: ACCU-CHEK XX ×2 (09:35→21:47)
[2017-08-16] MEDS: METOPROLOL 50 MG TAB PO ×2 (09:35→21:26)
[2017-08-16] MEDS: POTASSIUM CHLORIDE 100 ML IVPB (11:41)
[2017-08-16] MEDS: CASPOFUNGIN 50 MG in SOD CHLORIDE 0.9% 250 ML IVPB (15:15)
[2017-08-16] MEDS: VANCOMYCIN 750 MG in DEXTROSE 5% 150 ML IVPB (16:49)
[2017-08-16] MEDS: FAT EMULSION 20% 250 ML IV (16:50)
[2017-08-16] MEDS: ZOLPIDEM 5 MG TAB PO (21:26)
[2017-08-17] MEDS: TPN 1,000 ML IV ×3 (00:35→12:52)
[2017-08-17] MEDS: VANCOMYCIN HCL 250 MG/5ML POSYG PO ×4 (00:35→18:02)
[2017-08-17] MEDS: MEROPENEM 1 GM/50ML(PMX) 50 ML IVPB ×3 (05:27→21:46)
[2017-08-17 06:13] LABS: ADD MAN DIFF? NO
[2017-08-17 06:19] LABS: WHITE BLOOD COUNT 6.3 10^3/ul (4.8-10.8)
[2017-08-17 06:19] LABS: BASOPHIL # 0.1 10^3/ul (0.0-0.1); BASOPHILS % 0.8 % (0.0-2.0); EOSINOPHILS # 0.3 10^3/ul (0.0-0.5); EOSINOPHILS % 4.4 % (0.0-7.0); HEMATOCRIT 27.6 % (37.0-47.0); HEMOGLOBIN 8.7 g/dl (12.0-16.0); LYMPHOCYTES # 2.1 10^3/ul (0.8-2.9); LYMPHOCYTES % 32.7 % (15.0-51.0); MEAN CORPUSCULAR HEMOGLOBIN 27.4 pg (29.0-33.0); MEAN CORPUSCULAR HGB CONC 31.5 g/dl (32.0-37.0); MEAN CORPUSCULAR VOLUME 86.8 fl (82.0-101.0); MEAN PLATELET VOLUME 10.6 fl (7.4-10.4); MONOCYTE # 0.4 10^3/ul (0.3-0.9); MONOCYTES % 5.8 % (0.0-11.0); NEUTROPHIL # 3.6 10^3/ul (1.6-7.5); NEUTROPHILS % 56.1 % (39.0-77.0); PLATELET COUNT 214 10^3/UL (140-415); RED BLOOD COUNT 3.18 10^6/ul (4.20-5.40); RED CELL DISTRIBUTION WIDTH 14.8 % (11.5-14.5)
[2017-08-17 06:59] LABS: ANION GAP 9 (8-16); BLOOD UREA NITROGEN 33 mg/dl (7-20); CALCIUM 9.4 mg/dl (8.4-10.2); CARBON DIOXIDE 25 mmol/L (21-31); CHLORIDE 112 mmol/L (97-110); CREATININE 0.67 mg/dl (0.44-1.00); GLUCOSE 114 mg/dl (70-220); POTASSIUM 3.4 mmol/L (3.5-5.1); SODIUM 143 mmol/L (135-144)
[2017-08-17] MEDS: PANTOPRAZOLE 40 MG INJ IV (08:33)
[2017-08-17] MEDS: NYSTATIN SUSP 5 ML CUP PO ×4 (08:34→21:46)
[2017-08-17] MEDS: METOPROLOL 50 MG TAB PO ×2 (08:34→21:54)
[2017-08-17] MEDS: MINOXIDIL 2.5 MG TAB PO ×2 (08:34→21:53)
[2017-08-17] MEDS: ACCU-CHEK XX (08:35)
[2017-08-17] MEDS: traMADol 50 MG TAB PO ×2 (09:00→19:33)
[2017-08-17] MEDS: VANCOMYCIN 750 MG in DEXTROSE 5% 150 ML IVPB (14:14)
[2017-08-17] MEDS: FAT EMULSION 20% 250 ML IV (16:09)
[2017-08-17] MEDS: ZOLPIDEM 5 MG TAB PO (21:54)
[2017-08-18] MEDS: TPN 1,000 ML IV ×2 (02:01→15:32)
[2017-08-18] MEDS: VANCOMYCIN HCL 250 MG/5ML POSYG PO ×4 (06:28→18:26)
[2017-08-18] MEDS: MEROPENEM 1 GM/50ML(PMX) 50 ML IVPB ×3 (06:28→21:50)
[2017-08-18 07:25] LABS: ANION GAP 9 (8-16); BLOOD UREA NITROGEN 30 mg/dl (7-20); CALCIUM 9.4 mg/dl (8.4-10.2); CARBON DIOXIDE 25 mmol/L (21-31); CHLORIDE 111 mmol/L (97-110); CREATININE 0.67 mg/dl (0.44-1.00); GLUCOSE 114 mg/dl (70-220); POTASSIUM 3.8 mmol/L (3.5-5.1); SODIUM 141 mmol/L (135-144)
[2017-08-18] MEDS: METOPROLOL 50 MG TAB PO ×2 (10:39→21:00)
[2017-08-18] MEDS: PANTOPRAZOLE 40 MG INJ IV (10:40)
[2017-08-18] MEDS: NYSTATIN SUSP 5 ML CUP PO ×4 (10:40→21:00)
[2017-08-18] MEDS: MINOXIDIL 2.5 MG TAB PO ×2 (10:40→21:00)
[2017-08-18] MEDS: VANCOMYCIN 750 MG in DEXTROSE 5% 150 ML IVPB (15:21)
[2017-08-18] MEDS: FAT EMULSION 20% 250 ML IV (15:43)
[2017-08-18] MEDS: traMADol 50 MG TAB PO (16:02)
[2017-08-18] MEDS: morphine 2 MG INJ IV (18:27)
[2017-08-18] MEDS: ENOXAPARIN 60 MG/0.6 ML SYG SC (21:03)
[2017-08-18] MEDS: ZOLPIDEM 5 MG TAB PO (21:57)
[2017-08-19] MEDS: AMPICILLIN/SULB 3 GM/NS (PMX) 100 ML IVPB ×4 (00:36→17:53)
[2017-08-19] MEDS: VANCOMYCIN HCL 250 MG/5ML POSYG PO ×4 (00:36→17:53)
[2017-08-19] MEDS: TPN 1,000 ML IV ×4 (02:19→17:14)
[2017-08-19 05:37] LABS: ADD MAN DIFF? NO
[2017-08-19 05:43] LABS: WHITE BLOOD COUNT 7.3 10^3/ul (4.8-10.8)
[2017-08-19 05:43] LABS: BASOPHIL # 0.1 10^3/ul (0.0-0.1); BASOPHILS % 0.8 % (0.0-2.0); EOSINOPHILS # 0.3 10^3/ul (0.0-0.5); EOSINOPHILS % 4.5 % (0.0-7.0); HEMATOCRIT 27.4 % (37.0-47.0); HEMOGLOBIN 8.9 g/dl (12.0-16.0); LYMPHOCYTES # 2.4 10^3/ul (0.8-2.9); LYMPHOCYTES % 32.4 % (15.0-51.0); MEAN CORPUSCULAR HEMOGLOBIN 27.8 pg (29.0-33.0); MEAN CORPUSCULAR HGB CONC 32.5 g/dl (32.0-37.0); MEAN CORPUSCULAR VOLUME 85.6 fl (82.0-101.0); MEAN PLATELET VOLUME 10.7 fl (7.4-10.4); MONOCYTE # 0.6 10^3/ul (0.3-0.9); MONOCYTES % 7.6 % (0.0-11.0); NEUTROPHILS % 54.3 % (39.0-77.0); PLATELET COUNT 211 10^3/UL (140-415); RED CELL DISTRIBUTION WIDTH 15.1 % (11.5-14.5)
[2017-08-19 06:02] LABS: ANION GAP 10 (8-16); BLOOD UREA NITROGEN 31 mg/dl (7-20); CALCIUM 9.5 mg/dl (8.4-10.2); CARBON DIOXIDE 26 mmol/L (21-31); CHLORIDE 108 mmol/L (97-110); CREATININE 0.68 mg/dl (0.44-1.00); GLUCOSE 108 mg/dl (70-220); PHOSPHORUS 3.3 mg/dl (2.5-4.9); POTASSIUM 4.2 mmol/L (3.5-5.1); SODIUM 140 mmol/L (135-144)
[2017-08-19] MEDS: ENOXAPARIN 60 MG/0.6 ML SYG SC ×2 (08:51→20:27)
[2017-08-19] MEDS: FUROSEMIDE 20 MG INJ IV (08:51)
[2017-08-19] MEDS: PANTOPRAZOLE 40 MG INJ IV (08:51)
[2017-08-19] MEDS: METOPROLOL 50 MG TAB PO ×2 (08:52→20:24)
[2017-08-19] MEDS: MINOXIDIL 2.5 MG TAB PO ×2 (08:52→20:25)
[2017-08-19] MEDS: traMADol 50 MG TAB PO ×2 (10:36→16:43)
[2017-08-19] MEDS: VANCOMYCIN 750 MG in DEXTROSE 5% 150 ML IVPB (15:08)
[2017-08-19] MEDS: FAT EMULSION 20% 250 ML IV (16:24)
[2017-08-19] MEDS: ZOLPIDEM 5 MG TAB PO (22:49)
[2017-08-20] MEDS: AMPICILLIN/SULB 3 GM/NS (PMX) 100 ML IVPB ×5 (00:04→23:30)
[2017-08-20] MEDS: VANCOMYCIN HCL 250 MG/5ML POSYG PO ×5 (00:05→23:30)
[2017-08-20] MEDS: TPN 1,000 ML IV ×2 (02:43→15:04)
[2017-08-20 05:20] LABS: ADD MAN DIFF? NO
[2017-08-20 05:34] LABS: BASOPHIL # 0.1 10^3/ul (0.0-0.1); BASOPHILS % 0.8 % (0.0-2.0); EOSINOPHILS # 0.3 10^3/ul (0.0-0.5); EOSINOPHILS % 5.2 % (0.0-7.0); HEMOGLOBIN 9.1 g/dl (12.0-16.0); LYMPHOCYTES # 2.2 10^3/ul (0.8-2.9); LYMPHOCYTES % 36.6 % (15.0-51.0); MEAN CORPUSCULAR HEMOGLOBIN 27.7 pg (29.0-33.0); MEAN CORPUSCULAR HGB CONC 32.5 g/dl (32.0-37.0); MEAN CORPUSCULAR VOLUME 85.4 fl (82.0-101.0); MEAN PLATELET VOLUME 10.5 fl (7.4-10.4); MONOCYTE # 0.5 10^3/ul (0.3-0.9); MONOCYTES % 8.3 % (0.0-11.0); NEUTROPHILS % 48.8 % (39.0-77.0); PLATELET COUNT 217 10^3/UL (140-415); RED BLOOD COUNT 3.28 10^6/ul (4.20-5.40); RED CELL DISTRIBUTION WIDTH 15.1 % (11.5-14.5)
[2017-08-20 05:34] LABS: WHITE BLOOD COUNT 6.1 10^3/ul (4.8-10.8)
[2017-08-20 06:08] LABS: ANION GAP 9 (8-16); BLOOD UREA NITROGEN 31 mg/dl (7-20); CALCIUM 9.4 mg/dl (8.4-10.2); CARBON DIOXIDE 31 mmol/L (21-31); CHLORIDE 102 mmol/L (97-110); CREATININE 0.71 mg/dl (0.44-1.00); GLUCOSE 106 mg/dl (70-220); POTASSIUM 4.4 mmol/L (3.5-5.1); SODIUM 138 mmol/L (135-144)
[2017-08-20 06:09] LABS: CHOL/HDL RATIO 3.9 RATIO; HDL CHOLESTEROL 38 mg/dl (33-92); LDL CHOLESTEROL,CALCULATED 88 mg/dl; TRIGLYCERIDES 121 mg/dl (0-149)
[2017-08-20 06:09] LABS: CHOLESTEROL 150 mg/dl (100-200)
[2017-08-20] MEDS: AL HYDROX/MG HYDROX/SIMETH 30 ML CUP PO (06:58)
[2017-08-20] MEDS: PANTOPRAZOLE 40 MG INJ IV (08:41)
[2017-08-20] MEDS: traMADol 50 MG TAB PO ×3 (08:42→23:30)
[2017-08-20] MEDS: FUROSEMIDE 20 MG INJ IV (08:42)
[2017-08-20] MEDS: METOPROLOL 50 MG TAB PO ×2 (08:42→21:23)
[2017-08-20] MEDS: MINOXIDIL 2.5 MG TAB PO ×2 (08:43→21:22)
[2017-08-20] MEDS: ENOXAPARIN 60 MG/0.6 ML SYG SC ×2 (08:44→21:28)
[2017-08-20] MEDS: CLONIDINE 0.3 MG/24 HR PATCH TRANSDERM (13:54)
[2017-08-20] MEDS: VANCOMYCIN 750 MG in DEXTROSE 5% 150 ML IVPB (15:22)
[2017-08-20] MEDS: FAT EMULSION 20% 250 ML IV (16:14)
[2017-08-20] MEDS: ZOLPIDEM 5 MG TAB PO (21:28)
[2017-08-21] MEDS: TPN 1,000 ML IV ×2 (03:45→16:30)
[2017-08-21] MEDS: AMPICILLIN/SULB 3 GM/NS (PMX) 100 ML IVPB ×3 (05:48→18:23)
[2017-08-21] MEDS: VANCOMYCIN HCL 250 MG/5ML POSYG PO ×3 (05:48→18:18)
[2017-08-21 06:03] LABS: ADD MAN DIFF? NO
[2017-08-21 06:14] LABS: WHITE BLOOD COUNT 6.3 10^3/ul (4.8-10.8)
[2017-08-21 06:14] LABS: BASOPHILS % 0.6 % (0.0-2.0); EOSINOPHILS # 0.3 10^3/ul (0.0-0.5); EOSINOPHILS % 4.1 % (0.0-7.0); HEMATOCRIT 29.6 % (37.0-47.0); HEMOGLOBIN 9.4 g/dl (12.0-16.0); LYMPHOCYTES # 2.2 10^3/ul (0.8-2.9); LYMPHOCYTES % 34.4 % (15.0-51.0); MEAN CORPUSCULAR HEMOGLOBIN 27.1 pg (29.0-33.0); MEAN CORPUSCULAR HGB CONC 31.8 g/dl (32.0-37.0); MEAN CORPUSCULAR VOLUME 85.3 fl (82.0-101.0); MEAN PLATELET VOLUME 10.7 fl (7.4-10.4); MONOCYTE # 0.6 10^3/ul (0.3-0.9); MONOCYTES % 9.5 % (0.0-11.0); NEUTROPHIL # 3.2 10^3/ul (1.6-7.5); NEUTROPHILS % 51.1 % (39.0-77.0); PLATELET COUNT 237 10^3/UL (140-415); RED BLOOD COUNT 3.47 10^6/ul (4.20-5.40); RED CELL DISTRIBUTION WIDTH 15.2 % (11.5-14.5)
[2017-08-21 06:48] LABS: ALANINE AMINOTRANSFERASE 53 IU/L (13-69); ALBUMIN/GLOBULIN RATIO 1.11; ALKALINE PHOSPHATASE 54 IU/L (42-121); ANION GAP 8 (8-16); ASPARTATE AMINO TRANSFERASE 28 IU/L (15-46); BILIRUBIN,INDIRECT 0.1 mg/dl (0-1.1); BILIRUBIN,TOTAL 0.1 mg/dl (0.2-1.3); BLOOD UREA NITROGEN 32 mg/dl (7-20); CALCIUM 9.1 mg/dl (8.4-10.2); CARBON DIOXIDE 34 mmol/L (21-31); CHLORIDE 98 mmol/L (97-110); CREATININE 0.71 mg/dl (0.44-1.00); GLUCOSE 95 mg/dl (70-220); POTASSIUM 4.7 mmol/L (3.5-5.1); SODIUM 135 mmol/L (135-144); TOTAL PROTEIN 5.7 g/dl (6.1-8.1)
[2017-08-21 06:55] LABS: TRIGLYCERIDES 112 mg/dl (0-149)
[2017-08-21] MEDS: PANTOPRAZOLE 40 MG INJ IV (09:43)
[2017-08-21] MEDS: MINOXIDIL 2.5 MG TAB PO ×2 (09:44→21:53)
[2017-08-21] MEDS: METOPROLOL 50 MG TAB PO ×2 (09:44→21:53)
[2017-08-21] MEDS: FUROSEMIDE 20 MG INJ IV (09:45)
[2017-08-21] MEDS: ENOXAPARIN 60 MG/0.6 ML SYG SC ×2 (09:53→22:10)
[2017-08-21] MEDS: VANCOMYCIN 750 MG in DEXTROSE 5% 150 ML IVPB (15:14)
[2017-08-21] MEDS: FAT EMULSION 20% 250 ML IV (16:30)
[2017-08-21] MEDS: traMADol 50 MG TAB PO (18:18)
[2017-08-21] MEDS: ZOLPIDEM 5 MG TAB PO (21:53)
[2017-08-22] MEDS: VANCOMYCIN HCL 250 MG/5ML POSYG PO ×5 (00:43→23:59)
[2017-08-22] MEDS: AMPICILLIN/SULB 3 GM/NS (PMX) 100 ML IVPB ×5 (00:43→23:59)
[2017-08-22] MEDS: traMADol 50 MG TAB PO ×4 (00:43→22:32)
[2017-08-22] MEDS: ACETAMINOPHEN 1000MG/100ML IV 100 ML IVPB (02:49)
[2017-08-22] MEDS: TPN 1,000 ML IV ×2 (02:51→15:27)
[2017-08-22 06:04] LABS: ADD MAN DIFF? NO
[2017-08-22 06:17] LABS: BASOPHILS % 0.7 % (0.0-2.0); EOSINOPHILS # 0.2 10^3/ul (0.0-0.5); EOSINOPHILS % 3.7 % (0.0-7.0); HEMATOCRIT 27.9 % (37.0-47.0); LYMPHOCYTES # 2.1 10^3/ul (0.8-2.9); LYMPHOCYTES % 39.2 % (15.0-51.0); MEAN CORPUSCULAR HEMOGLOBIN 27.4 pg (29.0-33.0); MEAN CORPUSCULAR HGB CONC 32.3 g/dl (32.0-37.0); MEAN CORPUSCULAR VOLUME 84.8 fl (82.0-101.0); MEAN PLATELET VOLUME 10.3 fl (7.4-10.4); MONOCYTE # 0.5 10^3/ul (0.3-0.9); MONOCYTES % 9.1 % (0.0-11.0); NEUTROPHIL # 2.5 10^3/ul (1.6-7.5); NEUTROPHILS % 46.9 % (39.0-77.0); PLATELET COUNT 233 10^3/UL (140-415); RED BLOOD COUNT 3.29 10^6/ul (4.20-5.40); RED CELL DISTRIBUTION WIDTH 15.1 % (11.5-14.5)
[2017-08-22 06:17] LABS: WHITE BLOOD COUNT 5.4 10^3/ul (4.8-10.8)
[2017-08-22 07:04] LABS: ANION GAP 11 (8-16); BLOOD UREA NITROGEN 33 mg/dl (7-20); CALCIUM 9.4 mg/dl (8.4-10.2); CARBON DIOXIDE 35 mmol/L (21-31); CHLORIDE 94 mmol/L (97-110); CREATININE 0.83 mg/dl (0.44-1.00); GLUCOSE 110 mg/dl (70-220); POTASSIUM 4.9 mmol/L (3.5-5.1); SODIUM 135 mmol/L (135-144)
[2017-08-22] MEDS: FUROSEMIDE 20 MG INJ IV ×2 (08:59→22:29)
[2017-08-22] MEDS: MINOXIDIL 2.5 MG TAB PO ×2 (09:00→22:30)
[2017-08-22] MEDS: METOPROLOL 50 MG TAB PO ×2 (09:01→22:30)
[2017-08-22] MEDS: PANTOPRAZOLE 40 MG INJ IV (09:01)
[2017-08-22] MEDS: ENOXAPARIN 60 MG/0.6 ML SYG SC ×2 (11:55→22:51)
[2017-08-22] MEDS: CLONIDINE 0.2 MG/24 HR PATCH TRANSDERM (12:33)
[2017-08-22] MEDS: FAT EMULSION 20% 250 ML IV (15:27)
[2017-08-22] MEDS: VANCOMYCIN 750 MG in DEXTROSE 5% 150 ML IVPB (15:27)
[2017-08-22] MEDS: ZOLPIDEM 5 MG TAB PO (22:31)
[2017-08-23] MEDS: TPN 1,000 ML IV ×2 (02:29→21:44)
[2017-08-23] MEDS: VANCOMYCIN HCL 250 MG/5ML POSYG PO ×4 (05:27→23:25)
[2017-08-23] MEDS: AMPICILLIN/SULB 3 GM/NS (PMX) 100 ML IVPB ×4 (05:27→23:25)
[2017-08-23] MEDS: traMADol 50 MG TAB PO ×2 (05:28→19:16)
[2017-08-23] MEDS: FUROSEMIDE 20 MG INJ IV ×2 (05:30→19:20)
[2017-08-23] MEDS: PANTOPRAZOLE 40 MG INJ IV (08:19)
[2017-08-23] MEDS: METOPROLOL 50 MG TAB PO ×2 (08:21→21:58)
[2017-08-23] MEDS: MINOXIDIL 2.5 MG TAB PO ×2 (08:21→21:56)
[2017-08-23] MEDS: ENOXAPARIN 60 MG/0.6 ML SYG SC ×2 (08:22→22:01)
[2017-08-23 12:01] LABS: ADD MAN DIFF? NO
[2017-08-23 12:49] LABS: WHITE BLOOD COUNT 5.6 10^3/ul (4.8-10.8)
[2017-08-23 12:49] LABS: BASOPHIL # 0.1 10^3/ul (0.0-0.1); BASOPHILS % 0.9 % (0.0-2.0); EOSINOPHILS # 0.1 10^3/ul (0.0-0.5); EOSINOPHILS % 2.3 % (0.0-7.0); HEMATOCRIT 26.8 % (37.0-47.0); HEMOGLOBIN 8.6 g/dl (12.0-16.0); LYMPHOCYTES # 1.7 10^3/ul (0.8-2.9); LYMPHOCYTES % 31.2 % (15.0-51.0); MEAN CORPUSCULAR HEMOGLOBIN 27.6 pg (29.0-33.0); MEAN CORPUSCULAR HGB CONC 32.1 g/dl (32.0-37.0); MEAN CORPUSCULAR VOLUME 85.9 fl (82.0-101.0); MEAN PLATELET VOLUME 11.4 fl (7.4-10.4); MONOCYTE # 0.5 10^3/ul (0.3-0.9); NEUTROPHIL # 3.1 10^3/ul (1.6-7.5); NEUTROPHILS % 56.1 % (39.0-77.0); PLATELET COUNT 245 10^3/UL (140-415); RED BLOOD COUNT 3.12 10^6/ul (4.20-5.40); RED CELL DISTRIBUTION WIDTH 15.3 % (11.5-14.5)
[2017-08-23 15:03] LABS: VANCOMYCIN,TROUGH 12.1 ug/ml (10.0-20.0)
[2017-08-23] MEDS: VANCOMYCIN 750 MG in DEXTROSE 5% 150 ML IVPB (15:34)
[2017-08-23] MEDS: FAT EMULSION 20% 250 ML IV (21:44)
[2017-08-23] MEDS: ZOLPIDEM 5 MG TAB PO (22:19)
[2017-08-24] MEDS: TPN 1,000 ML IV ×3 (01:53→13:38)
[2017-08-24 05:48] LABS: ADD MAN DIFF? NO
[2017-08-24 05:59] LABS: WHITE BLOOD COUNT 5.1 10^3/ul (4.8-10.8)
[2017-08-24 05:59] LABS: BASOPHIL # 0.1 10^3/ul (0.0-0.1); EOSINOPHILS # 0.1 10^3/ul (0.0-0.5); EOSINOPHILS % 2.8 % (0.0-7.0); HEMATOCRIT 26.6 % (37.0-47.0); HEMOGLOBIN 8.7 g/dl (12.0-16.0); LYMPHOCYTES # 1.8 10^3/ul (0.8-2.9); LYMPHOCYTES % 34.6 % (15.0-51.0); MEAN CORPUSCULAR HEMOGLOBIN 27.7 pg (29.0-33.0); MEAN CORPUSCULAR HGB CONC 32.7 g/dl (32.0-37.0); MEAN CORPUSCULAR VOLUME 84.7 fl (82.0-101.0); MEAN PLATELET VOLUME 11.4 fl (7.4-10.4); MONOCYTE # 0.5 10^3/ul (0.3-0.9); MONOCYTES % 9.7 % (0.0-11.0); NEUTROPHIL # 2.6 10^3/ul (1.6-7.5); NEUTROPHILS % 51.7 % (39.0-77.0); PLATELET COUNT 250 10^3/UL (140-415); RED BLOOD COUNT 3.14 10^6/ul (4.20-5.40); RED CELL DISTRIBUTION WIDTH 15.2 % (11.5-14.5)
[2017-08-24] MEDS: FUROSEMIDE 20 MG INJ IV ×2 (06:00→17:10)
[2017-08-24] MEDS: VANCOMYCIN HCL 250 MG/5ML POSYG PO ×3 (06:00→17:14)
[2017-08-24] MEDS: AMPICILLIN/SULB 3 GM/NS (PMX) 100 ML IVPB ×3 (06:00→17:10)
[2017-08-24 06:14] LABS: ANION GAP 11 (8-16); BLOOD UREA NITROGEN 32 mg/dl (7-20); CALCIUM 9.4 mg/dl (8.4-10.2); CARBON DIOXIDE 37 mmol/L (21-31); CHLORIDE 92 mmol/L (97-110); CREATININE 0.98 mg/dl (0.44-1.00); GLUCOSE 111 mg/dl (70-220); POTASSIUM 4.4 mmol/L (3.5-5.1); SODIUM 136 mmol/L (135-144)
[2017-08-24 06:24] LABS: MAGNESIUM 1.9 mg/dl (1.7-2.5); TRIGLYCERIDES 123 mg/dl (0-149)
[2017-08-24 06:24] LABS: PHOSPHORUS 5.8 mg/dl (2.5-4.9)
[2017-08-24] MEDS: traMADol 50 MG TAB PO ×3 (08:38→22:39)
[2017-08-24] MEDS: PANTOPRAZOLE 40 MG INJ IV (08:38)
[2017-08-24] MEDS: MINOXIDIL 2.5 MG TAB PO ×2 (08:39→20:29)
[2017-08-24] MEDS: METOPROLOL 50 MG TAB PO ×2 (08:39→20:29)
[2017-08-24] MEDS: ENOXAPARIN 60 MG/0.6 ML SYG SC ×2 (08:49→20:32)
[2017-08-24] MEDS: VANCOMYCIN 750 MG in DEXTROSE 5% 150 ML IVPB (15:05)
[2017-08-24] MEDS: FAT EMULSION 20% 250 ML IV (15:06)
[2017-08-24] MEDS: ONDANSETRON 4 MG INJ IV (17:06)
[2017-08-24] MEDS: ZOLPIDEM 5 MG TAB PO (22:39)
[2017-08-25] MEDS: VANCOMYCIN HCL 250 MG/5ML POSYG PO ×4 (00:01→18:25)
[2017-08-25] MEDS: TPN 1,000 ML IV ×2 (02:01→15:55)
[2017-08-25 05:46] LABS: ADD MAN DIFF? NO
[2017-08-25] MEDS: FUROSEMIDE 20 MG INJ IV ×2 (05:47→18:26)
[2017-08-25] MEDS: AMPICILLIN/SULB 3 GM/NS (PMX) 100 ML IVPB ×4 (05:47→18:25)
[2017-08-25 05:58] LABS: BASOPHILS % 0.8 % (0.0-2.0); EOSINOPHILS # 0.1 10^3/ul (0.0-0.5); EOSINOPHILS % 2.6 % (0.0-7.0); HEMATOCRIT 24.7 % (37.0-47.0); HEMOGLOBIN 7.8 g/dl (12.0-16.0); LYMPHOCYTES % 38.5 % (15.0-51.0); MEAN CORPUSCULAR HEMOGLOBIN 27.6 pg (29.0-33.0); MEAN CORPUSCULAR HGB CONC 31.6 g/dl (32.0-37.0); MEAN CORPUSCULAR VOLUME 87.3 fl (82.0-101.0); MEAN PLATELET VOLUME 11.3 fl (7.4-10.4); MONOCYTE # 0.5 10^3/ul (0.3-0.9); MONOCYTES % 9.5 % (0.0-11.0); NEUTROPHIL # 2.5 10^3/ul (1.6-7.5); NEUTROPHILS % 48.4 % (39.0-77.0); PLATELET COUNT 213 10^3/UL (140-415); RED BLOOD COUNT 2.83 10^6/ul (4.20-5.40); RED CELL DISTRIBUTION WIDTH 15.3 % (11.5-14.5)
[2017-08-25 05:58] LABS: WHITE BLOOD COUNT 5.1 10^3/ul (4.8-10.8)
[2017-08-25 06:12] LABS: MAGNESIUM 2.5 mg/dl (1.7-2.5)
[2017-08-25 06:12] LABS: PHOSPHORUS 4.9 mg/dl (2.5-4.9)
[2017-08-25 06:37] LABS: ANION GAP 10 (8-16); BLOOD UREA NITROGEN 33 mg/dl (7-20); CALCIUM 9.2 mg/dl (8.4-10.2); CARBON DIOXIDE 33 mmol/L (21-31); CHLORIDE 98 mmol/L (97-110); CREATININE 1.17 mg/dl (0.44-1.00); POTASSIUM 5.8 mmol/L (3.5-5.1); SODIUM 135 mmol/L (135-144)
[2017-08-25 07:08] LABS: GLUCOSE 456 mg/dl (70-220)
[2017-08-25 09:00] LABS: GLUCOSE 116 mg/dl (70-220)
[2017-08-25] MEDS: PANTOPRAZOLE 40 MG INJ IV (09:40)
[2017-08-25] MEDS: MINOXIDIL 2.5 MG TAB PO ×2 (09:41→20:44)
[2017-08-25] MEDS: METOPROLOL 50 MG TAB PO ×2 (09:42→20:45)
[2017-08-25] MEDS: NA POLYST SULFON 15 GM/60 ML BTL PO (09:43)
[2017-08-25] MEDS: ENOXAPARIN 60 MG/0.6 ML SYG SC ×2 (09:59→20:43)
[2017-08-25 10:49] LABS: IMMEDIATE SPIN CROSSMATCH 1 1
[2017-08-25 11:37] LABS: ANION GAP 13 (8-16); BLOOD UREA NITROGEN 37 mg/dl (7-20); CALCIUM 9.7 mg/dl (8.4-10.2); CARBON DIOXIDE 34 mmol/L (21-31); CHLORIDE 95 mmol/L (97-110); GLUCOSE 113 mg/dl (70-220); POTASSIUM 4.7 mmol/L (3.5-5.1); SODIUM 137 mmol/L (135-144)
[2017-08-25 11:47] LABS: PHOSPHORUS 5.4 mg/dl (2.5-4.9)
[2017-08-25 11:48] LABS: MAGNESIUM 2.1 mg/dl (1.7-2.5)
[2017-08-25] MEDS: traMADol 50 MG TAB PO (14:17)
[2017-08-25] MEDS: FAT EMULSION 20% 250 ML IV (16:03)
[2017-08-25] MEDS: VANCOMYCIN 750 MG in DEXTROSE 5% 150 ML IVPB (16:03)
[2017-08-25] MEDS: morphine 2 MG INJ IV (16:19)
[2017-08-26] MEDS: VANCOMYCIN HCL 250 MG/5ML POSYG PO ×4 (00:08→17:39)
[2017-08-26] MEDS: ZOLPIDEM 5 MG TAB PO ×2 (00:09→21:42)
[2017-08-26] MEDS: AMPICILLIN/SULB 3 GM/NS (PMX) 100 ML IVPB ×4 (00:09→19:07)
[2017-08-26] MEDS: TPN 1,000 ML IV ×2 (04:54→17:36)
[2017-08-26 05:30] LABS: ADD MAN DIFF? NO
[2017-08-26] MEDS: FUROSEMIDE 20 MG INJ IV ×2 (05:38→17:37)
[2017-08-26 05:39] LABS: BASOPHIL # 0.1 10^3/ul (0.0-0.1); EOSINOPHILS # 0.2 10^3/ul (0.0-0.5); HEMATOCRIT 26.8 % (37.0-47.0); HEMOGLOBIN 8.5 g/dl (12.0-16.0); LYMPHOCYTES # 1.9 10^3/ul (0.8-2.9); LYMPHOCYTES % 35.6 % (15.0-51.0); MEAN CORPUSCULAR HEMOGLOBIN 27.8 pg (29.0-33.0); MEAN CORPUSCULAR HGB CONC 31.7 g/dl (32.0-37.0); MEAN CORPUSCULAR VOLUME 87.6 fl (82.0-101.0); MEAN PLATELET VOLUME 11.3 fl (7.4-10.4); MONOCYTE # 0.5 10^3/ul (0.3-0.9); MONOCYTES % 8.6 % (0.0-11.0); NEUTROPHIL # 2.7 10^3/ul (1.6-7.5); NEUTROPHILS % 51.4 % (39.0-77.0); PLATELET COUNT 211 10^3/UL (140-415); RED BLOOD COUNT 3.06 10^6/ul (4.20-5.40); RED CELL DISTRIBUTION WIDTH 15.2 % (11.5-14.5)
[2017-08-26 05:39] LABS: WHITE BLOOD COUNT 5.3 10^3/ul (4.8-10.8)
[2017-08-26 05:59] LABS: ANION GAP 11 (8-16); BLOOD UREA NITROGEN 33 mg/dl (7-20); CALCIUM 9.2 mg/dl (8.4-10.2); CARBON DIOXIDE 30 mmol/L (21-31); CHLORIDE 100 mmol/L (97-110); POTASSIUM 5.5 mmol/L (3.5-5.1); SODIUM 135 mmol/L (135-144)
[2017-08-26 06:07] LABS: GLUCOSE 514 mg/dl (70-220)
[2017-08-26 08:03] LABS: GLUCOSE 114 mg/dl (70-220)
[2017-08-26 08:25] LABS: ANION GAP 14 (8-16); BLOOD UREA NITROGEN 36 mg/dl (7-20); CALCIUM 9.4 mg/dl (8.4-10.2); CARBON DIOXIDE 33 mmol/L (21-31); CHLORIDE 98 mmol/L (97-110); CREATININE 0.98 mg/dl (0.44-1.00); GLUCOSE 111 mg/dl (70-220); POTASSIUM 4.1 mmol/L (3.5-5.1); SODIUM 141 mmol/L (135-144)
[2017-08-26] MEDS: PANTOPRAZOLE 40 MG INJ IV (09:43)
[2017-08-26] MEDS: traMADol 50 MG TAB PO ×2 (09:45→20:33)
[2017-08-26] MEDS: METOPROLOL 50 MG TAB PO ×2 (09:47→20:33)
[2017-08-26] MEDS: MINOXIDIL 2.5 MG TAB PO ×2 (09:47→20:34)
[2017-08-26] MEDS: ENOXAPARIN 60 MG/0.6 ML SYG SC ×2 (10:21→20:38)
[2017-08-26] MEDS: VANCOMYCIN 750 MG in DEXTROSE 5% 150 ML IVPB (16:57)
[2017-08-26] MEDS: FAT EMULSION 20% 250 ML IV (16:57)
[2017-08-27] MEDS: VANCOMYCIN HCL 250 MG/5ML POSYG PO ×4 (00:30→18:16)
[2017-08-27] MEDS: AMPICILLIN/SULB 3 GM/NS (PMX) 100 ML IVPB ×4 (00:30→18:16)
[2017-08-27 05:46] LABS: ADD MAN DIFF? NO
[2017-08-27 05:56] LABS: BASOPHIL # 0.1 10^3/ul (0.0-0.1); BASOPHILS % 0.8 % (0.0-2.0); EOSINOPHILS # 0.1 10^3/ul (0.0-0.5); EOSINOPHILS % 2.2 % (0.0-7.0); HEMATOCRIT 29.5 % (37.0-47.0); HEMOGLOBIN 9.7 g/dl (12.0-16.0); LYMPHOCYTES # 2.1 10^3/ul (0.8-2.9); LYMPHOCYTES % 33.5 % (15.0-51.0); MEAN CORPUSCULAR HEMOGLOBIN 27.7 pg (29.0-33.0); MEAN CORPUSCULAR HGB CONC 32.9 g/dl (32.0-37.0); MEAN CORPUSCULAR VOLUME 84.3 fl (82.0-101.0); MONOCYTE # 0.5 10^3/ul (0.3-0.9); NEUTROPHIL # 3.6 10^3/ul (1.6-7.5); PLATELET COUNT 232 10^3/UL (140-415)
[2017-08-27 05:56] LABS: WHITE BLOOD COUNT 6.4 10^3/ul (4.8-10.8)
[2017-08-27 06:22] LABS: ANION GAP 12 (8-16); BLOOD UREA NITROGEN 38 mg/dl (7-20); CALCIUM 9.5 mg/dl (8.4-10.2); CARBON DIOXIDE 31 mmol/L (21-31); CHLORIDE 100 mmol/L (97-110); CREATININE 0.94 mg/dl (0.44-1.00); GLUCOSE 112 mg/dl (70-220); POTASSIUM 4.1 mmol/L (3.5-5.1); SODIUM 139 mmol/L (135-144)
[2017-08-27] MEDS: FUROSEMIDE 20 MG INJ IV ×2 (06:36→18:17)
[2017-08-27] MEDS: TPN 1,000 ML IV ×3 (06:36→20:59)
[2017-08-27] MEDS: PANTOPRAZOLE 40 MG INJ IV (09:16)
[2017-08-27] MEDS: MINOXIDIL 2.5 MG TAB PO ×2 (09:17→20:57)
[2017-08-27] MEDS: METOPROLOL 50 MG TAB PO ×2 (09:17→20:58)
[2017-08-27] MEDS: traMADol 50 MG TAB PO ×2 (09:47→18:17)
[2017-08-27] MEDS: ENOXAPARIN 60 MG/0.6 ML SYG SC ×2 (10:42→20:56)
[2017-08-27] MEDS: CLONIDINE 0.3 MG/24 HR PATCH TRANSDERM (14:05)
[2017-08-27] MEDS: FAT EMULSION 20% 250 ML IV (16:33)
[2017-08-27] MEDS: ZOLPIDEM 5 MG TAB PO (20:57)
[2017-08-28] MEDS: VANCOMYCIN HCL 250 MG/5ML POSYG PO ×4 (00:43→17:22)
[2017-08-28] MEDS: AMPICILLIN/SULB 3 GM/NS (PMX) 100 ML IVPB ×4 (00:43→17:22)
[2017-08-28] MEDS: FUROSEMIDE 20 MG INJ IV ×2 (06:21→17:22)
[2017-08-28 06:41] LABS: ADD MAN DIFF? NO
[2017-08-28 06:48] LABS: BASOPHIL # 0.1 10^3/ul (0.0-0.1); EOSINOPHILS # 0.2 10^3/ul (0.0-0.5); EOSINOPHILS % 2.6 % (0.0-7.0); HEMATOCRIT 29.6 % (37.0-47.0); HEMOGLOBIN 9.7 g/dl (12.0-16.0); LYMPHOCYTES % 32.5 % (15.0-51.0); MEAN CORPUSCULAR HEMOGLOBIN 27.7 pg (29.0-33.0); MEAN CORPUSCULAR HGB CONC 32.8 g/dl (32.0-37.0); MEAN CORPUSCULAR VOLUME 84.6 fl (82.0-101.0); MEAN PLATELET VOLUME 11.2 fl (7.4-10.4); MONOCYTE # 0.5 10^3/ul (0.3-0.9); MONOCYTES % 8.6 % (0.0-11.0); NEUTROPHIL # 3.3 10^3/ul (1.6-7.5); PLATELET COUNT 250 10^3/UL (140-415); RED CELL DISTRIBUTION WIDTH 15.1 % (11.5-14.5)
[2017-08-28 07:19] LABS: ANION GAP 14 (8-16); BLOOD UREA NITROGEN 38 mg/dl (7-20); CALCIUM 9.6 mg/dl (8.4-10.2); CARBON DIOXIDE 29 mmol/L (21-31); CHLORIDE 100 mmol/L (97-110); CREATININE 0.94 mg/dl (0.44-1.00); GLUCOSE 121 mg/dl (70-220); MAGNESIUM 1.8 mg/dl (1.7-2.5); PHOSPHORUS 4.5 mg/dl (2.5-4.9); SODIUM 139 mmol/L (135-144)
[2017-08-28] MEDS: PANTOPRAZOLE 40 MG INJ IV (09:44)
[2017-08-28] MEDS: MINOXIDIL 2.5 MG TAB PO ×2 (09:45→20:54)
[2017-08-28] MEDS: METOPROLOL 50 MG TAB PO ×2 (09:45→20:55)
[2017-08-28] MEDS: ENOXAPARIN 60 MG/0.6 ML SYG SC ×2 (09:53→20:59)
[2017-08-28] MEDS: traMADol 50 MG TAB PO ×2 (10:04→18:24)
[2017-08-28] MEDS: FAT EMULSION 20% 250 ML IV (16:51)
[2017-08-28] MEDS: TPN 1,000 ML IV (17:22)
[2017-08-28] MEDS: ZOLPIDEM 5 MG TAB PO (21:04)
[2017-08-29] MEDS: AMPICILLIN/SULB 3 GM/NS (PMX) 100 ML IVPB ×4 (00:21→17:40)
[2017-08-29] MEDS: VANCOMYCIN HCL 250 MG/5ML POSYG PO ×4 (00:22→17:39)
[2017-08-29] MEDS: FUROSEMIDE 20 MG INJ IV (05:33)
[2017-08-29 06:58] LABS: ANION GAP 13 (8-16); BLOOD UREA NITROGEN 36 mg/dl (7-20); CALCIUM 9.7 mg/dl (8.4-10.2); CARBON DIOXIDE 29 mmol/L (21-31); CHLORIDE 101 mmol/L (97-110); CREATININE 1.02 mg/dl (0.44-1.00); GLUCOSE 121 mg/dl (70-220); POTASSIUM 3.9 mmol/L (3.5-5.1); SODIUM 139 mmol/L (135-144)
[2017-08-29] MEDS: PANTOPRAZOLE 40 MG INJ IV (08:44)
[2017-08-29] MEDS: MINOXIDIL 2.5 MG TAB PO ×2 (08:45→20:20)
[2017-08-29] MEDS: METOPROLOL 50 MG TAB PO ×2 (08:46→20:20)
[2017-08-29] MEDS: ENOXAPARIN 60 MG/0.6 ML SYG SC ×2 (08:54→20:18)
[2017-08-29] MEDS: traMADol 50 MG TAB PO ×2 (09:08→18:29)
[2017-08-29] MEDS: TPN 1,000 ML IV (12:16)
[2017-08-29] MEDS: CLONIDINE 0.2 MG/24 HR PATCH TRANSDERM (12:19)
[2017-08-29] MEDS: FAT EMULSION 20% 250 ML IV (17:40)
[2017-08-29] MEDS ORDERED: BUPIVACAINE 0.5%/EPI (SDV) 30 ML INJ INJ (18:00)
[2017-08-29] MEDS ORDERED: BETAMET NA PHOS/AC(6 MG/ML) 5ML INJ INJ (18:00)
[2017-08-29] MEDS: ZOLPIDEM 5 MG TAB PO (21:22)
[2017-08-30] MEDS: VANCOMYCIN HCL 250 MG/5ML POSYG PO ×4 (00:37→17:05)
[2017-08-30] MEDS: AMPICILLIN/SULB 3 GM/NS (PMX) 100 ML IVPB ×4 (00:37→17:01)
[2017-08-30 05:33] LABS: ADD MAN DIFF? NO
[2017-08-30 05:37] LABS: WHITE BLOOD COUNT 6.5 10^3/ul (4.8-10.8)
[2017-08-30 05:37] LABS: BASOPHILS % 0.6 % (0.0-2.0); EOSINOPHILS # 0.2 10^3/ul (0.0-0.5); EOSINOPHILS % 2.9 % (0.0-7.0); HEMATOCRIT 28.4 % (37.0-47.0); HEMOGLOBIN 9.4 g/dl (12.0-16.0); LYMPHOCYTES # 2.1 10^3/ul (0.8-2.9); MEAN CORPUSCULAR HEMOGLOBIN 28.2 pg (29.0-33.0); MEAN CORPUSCULAR HGB CONC 33.1 g/dl (32.0-37.0); MEAN CORPUSCULAR VOLUME 85.3 fl (82.0-101.0); MEAN PLATELET VOLUME 10.7 fl (7.4-10.4); MONOCYTE # 0.5 10^3/ul (0.3-0.9); MONOCYTES % 7.9 % (0.0-11.0); NEUTROPHIL # 3.6 10^3/ul (1.6-7.5); NEUTROPHILS % 55.3 % (39.0-77.0); PLATELET COUNT 232 10^3/UL (140-415); RED BLOOD COUNT 3.33 10^6/ul (4.20-5.40); RED CELL DISTRIBUTION WIDTH 15.2 % (11.5-14.5)
[2017-08-30] MEDS: traMADol 50 MG TAB PO (06:28)
[2017-08-30 06:44] LABS: TRIGLYCERIDES 155 mg/dl (0-149)
[2017-08-30 06:50] LABS: PREALBUMIN 24.5 mg/dl (17.6-36.0)
[2017-08-30 06:54] LABS: ANION GAP 13 (8-16); BLOOD UREA NITROGEN 34 mg/dl (7-20); CALCIUM 9.7 mg/dl (8.4-10.2); CARBON DIOXIDE 28 mmol/L (21-31); CHLORIDE 104 mmol/L (97-110); CREATININE 0.98 mg/dl (0.44-1.00); GLUCOSE 114 mg/dl (70-220); POTASSIUM 3.8 mmol/L (3.5-5.1); SODIUM 141 mmol/L (135-144)
[2017-08-30 07:06] LABS: MAGNESIUM 1.8 mg/dl (1.7-2.5)
[2017-08-30 07:06] LABS: PHOSPHORUS 5.3 mg/dl (2.5-4.9)
[2017-08-30] MEDS: PANTOPRAZOLE 40 MG INJ IV (08:34)
[2017-08-30] MEDS: MINOXIDIL 2.5 MG TAB PO ×2 (08:35→20:59)
[2017-08-30] MEDS: FUROSEMIDE 20 MG INJ IV (08:36)
[2017-08-30] MEDS: METOPROLOL 50 MG TAB PO ×2 (08:36→21:00)
[2017-08-30] MEDS: ENOXAPARIN 60 MG/0.6 ML SYG SC ×2 (09:05→21:05)
[2017-08-30 14:29] LABS: CHOLESTEROL 180 mg/dl (100-200)
[2017-08-30 14:29] LABS: HDL CHOLESTEROL 36 mg/dl (33-92); LDL CHOLESTEROL,CALCULATED 112 mg/dl; TRIGLYCERIDES 159 mg/dl (0-149)
[2017-08-30] MEDS: D5W-0.45 NACL + KCL 20 MEQ 1,000 ML IV (17:01)
[2017-08-30] MEDS: ZOLPIDEM 5 MG TAB PO (21:44)
[2017-08-31] MEDS: AMPICILLIN/SULB 3 GM/NS (PMX) 100 ML IVPB ×4 (00:11→18:20)
[2017-08-31] MEDS: VANCOMYCIN HCL 250 MG/5ML POSYG PO ×4 (00:11→18:20)
[2017-08-31 06:11] LABS: ADD MAN DIFF? NO
[2017-08-31 06:30] LABS: BASOPHIL # 0.1 10^3/ul (0.0-0.1); BASOPHILS % 0.9 % (0.0-2.0); EOSINOPHILS # 0.2 10^3/ul (0.0-0.5); EOSINOPHILS % 2.5 % (0.0-7.0); HEMATOCRIT 27.8 % (37.0-47.0); HEMOGLOBIN 9.2 g/dl (12.0-16.0); LYMPHOCYTES # 2.1 10^3/ul (0.8-2.9); MEAN CORPUSCULAR HEMOGLOBIN 27.9 pg (29.0-33.0); MEAN CORPUSCULAR HGB CONC 33.1 g/dl (32.0-37.0); MEAN CORPUSCULAR VOLUME 84.2 fl (82.0-101.0); MEAN PLATELET VOLUME 10.9 fl (7.4-10.4); MONOCYTE # 0.5 10^3/ul (0.3-0.9); MONOCYTES % 7.2 % (0.0-11.0); NEUTROPHILS % 58.3 % (39.0-77.0); PLATELET COUNT 209 10^3/UL (140-415); RED CELL DISTRIBUTION WIDTH 15.2 % (11.5-14.5)
[2017-08-31 06:30] LABS: WHITE BLOOD COUNT 6.9 10^3/ul (4.8-10.8)
[2017-08-31 07:22] LABS: ANION GAP 14 (8-16); BLOOD UREA NITROGEN 28 mg/dl (7-20); CALCIUM 9.8 mg/dl (8.4-10.2); CARBON DIOXIDE 27 mmol/L (21-31); CHLORIDE 103 mmol/L (97-110); CREATININE 1.02 mg/dl (0.44-1.00); GLUCOSE 112 mg/dl (70-220); PHOSPHORUS 5.3 mg/dl (2.5-4.9); SODIUM 140 mmol/L (135-144)
[2017-08-31] MEDS: MINOXIDIL 2.5 MG TAB PO ×2 (08:57→20:47)
[2017-08-31] MEDS: METOPROLOL 50 MG TAB PO ×2 (08:58→20:46)
[2017-08-31] MEDS: FUROSEMIDE 20 MG INJ IV (08:59)
[2017-08-31] MEDS: PANTOPRAZOLE 40 MG INJ IV (08:59)
[2017-08-31] MEDS: traMADol 50 MG TAB PO (09:04)
[2017-08-31] MEDS: ENOXAPARIN 60 MG/0.6 ML SYG SC ×2 (09:11→20:50)
[2017-08-31] MEDS: BETAMET NA PHOS/AC(6 MG/ML) 5ML INJ IM (13:30)
[2017-08-31] MEDS: D5W-0.45 NACL + KCL 20 MEQ 1,000 ML IV (18:20)
[2017-08-31] MEDS: BUPIVACAINE 0.5% (MPF) 10 ML VIAL INJ (19:40)
[2017-08-31] MEDS: ZOLPIDEM 5 MG TAB PO (21:23)
[2017-09-01] MEDS: VANCOMYCIN HCL 250 MG/5ML POSYG PO ×4 (00:19→18:01)
[2017-09-01] MEDS: AMPICILLIN/SULB 3 GM/NS (PMX) 100 ML IVPB ×4 (00:19→18:01)
[2017-09-01 06:25] LABS: ADD MAN DIFF? NO
[2017-09-01 06:30] LABS: BASOPHILS % 0.4 % (0.0-2.0); EOSINOPHILS # 0.2 10^3/ul (0.0-0.5); EOSINOPHILS % 2.2 % (0.0-7.0); HEMATOCRIT 26.2 % (37.0-47.0); HEMOGLOBIN 8.9 g/dl (12.0-16.0); LYMPHOCYTES # 2.1 10^3/ul (0.8-2.9); LYMPHOCYTES % 30.9 % (15.0-51.0); MEAN CORPUSCULAR HEMOGLOBIN 28.6 pg (29.0-33.0); MEAN CORPUSCULAR VOLUME 84.2 fl (82.0-101.0); MEAN PLATELET VOLUME 11.1 fl (7.4-10.4); MONOCYTE # 0.5 10^3/ul (0.3-0.9); MONOCYTES % 7.9 % (0.0-11.0); NEUTROPHILS % 58.3 % (39.0-77.0); PLATELET COUNT 204 10^3/UL (140-415); RED BLOOD COUNT 3.11 10^6/ul (4.20-5.40); RED CELL DISTRIBUTION WIDTH 15.3 % (11.5-14.5)
[2017-09-01 06:30] LABS: WHITE BLOOD COUNT 6.8 10^3/ul (4.8-10.8)
[2017-09-01 07:11] LABS: ANION GAP 16 (8-16); BLOOD UREA NITROGEN 22 mg/dl (7-20); CALCIUM 9.4 mg/dl (8.4-10.2); CARBON DIOXIDE 27 mmol/L (21-31); CHLORIDE 103 mmol/L (97-110); CREATININE 0.99 mg/dl (0.44-1.00); GLUCOSE 104 mg/dl (70-220); SODIUM 142 mmol/L (135-144)
[2017-09-01] MEDS: PANTOPRAZOLE 40 MG INJ IV (09:09)
[2017-09-01] MEDS: FUROSEMIDE 20 MG INJ IV (09:09)
[2017-09-01] MEDS: MINOXIDIL 2.5 MG TAB PO ×2 (09:10→20:32)
[2017-09-01] MEDS: METOPROLOL 50 MG TAB PO ×2 (09:10→20:32)
[2017-09-01] MEDS: traMADol 50 MG TAB PO ×2 (09:11→21:57)
[2017-09-01] MEDS: ENOXAPARIN 60 MG/0.6 ML SYG SC ×2 (09:53→20:37)
[2017-09-01] MEDS: D5W-0.45 NACL + KCL 20 MEQ 1,000 ML IV (17:19)
[2017-09-01] MEDS: ZOLPIDEM 5 MG TAB PO (21:55)
[2017-09-02] MEDS: AMPICILLIN/SULB 3 GM/NS (PMX) 100 ML IVPB ×4 (00:28→17:59)
[2017-09-02] MEDS: VANCOMYCIN HCL 250 MG/5ML POSYG PO ×4 (00:28→17:59)
[2017-09-02 05:54] LABS: ADD MAN DIFF? NO
[2017-09-02 05:58] LABS: WHITE BLOOD COUNT 5.1 10^3/ul (4.8-10.8)
[2017-09-02 05:58] LABS: BASOPHILS % 0.4 % (0.0-2.0); HEMATOCRIT 28.4 % (37.0-47.0); HEMOGLOBIN 9.6 g/dl (12.0-16.0); LYMPHOCYTES # 1.1 10^3/ul (0.8-2.9); LYMPHOCYTES % 22.3 % (15.0-51.0); MEAN CORPUSCULAR HEMOGLOBIN 28.2 pg (29.0-33.0); MEAN CORPUSCULAR HGB CONC 33.8 g/dl (32.0-37.0); MEAN CORPUSCULAR VOLUME 83.3 fl (82.0-101.0); MEAN PLATELET VOLUME 11.8 fl (7.4-10.4); MONOCYTE # 0.1 10^3/ul (0.3-0.9); MONOCYTES % 1.4 % (0.0-11.0); NEUTROPHIL # 3.8 10^3/ul (1.6-7.5); NEUTROPHILS % 75.1 % (39.0-77.0); PLATELET COUNT 216 10^3/UL (140-415); RED BLOOD COUNT 3.41 10^6/ul (4.20-5.40); RED CELL DISTRIBUTION WIDTH 15.2 % (11.5-14.5)
[2017-09-02 08:08] LABS: BLOOD UREA NITROGEN 23 mg/dl (7-20); CALCIUM 9.7 mg/dl (8.4-10.2); CARBON DIOXIDE 24 mmol/L (21-31); CHLORIDE 101 mmol/L (97-110); CREATININE 1.03 mg/dl (0.44-1.00); GLUCOSE 186 mg/dl (70-220); SODIUM 141 mmol/L (135-144)
[2017-09-02 08:28] LABS: ANION GAP 21 (8-16); POTASSIUM 4.7 mmol/L (3.5-5.1)
[2017-09-02] MEDS: METOPROLOL 50 MG TAB PO ×2 (09:00→21:00)
[2017-09-02] MEDS: MINOXIDIL 2.5 MG TAB PO ×2 (09:00→21:00)
[2017-09-02] MEDS: PANTOPRAZOLE 40 MG INJ IV (10:05)
[2017-09-02] MEDS: FUROSEMIDE 20 MG INJ IV (10:08)
[2017-09-02] MEDS: traMADol 50 MG TAB PO ×2 (10:08→21:09)
[2017-09-02] MEDS: ENOXAPARIN 60 MG/0.6 ML SYG SC ×2 (10:23→21:10)
[2017-09-02] MEDS: D5W-0.45 NACL + KCL 20 MEQ 1,000 ML IV (17:59)
[2017-09-02] MEDS: ZOLPIDEM 5 MG TAB PO (21:09)
[2017-09-02] MEDS: SENNA TAB PO (21:09)
[2017-09-03] MEDS: VANCOMYCIN HCL 250 MG/5ML POSYG PO ×4 (00:22→17:50)
[2017-09-03] MEDS: AMPICILLIN/SULB 3 GM/NS (PMX) 100 ML IVPB ×4 (00:22→17:45)
[2017-09-03 05:36] LABS: ADD MAN DIFF? NO
[2017-09-03 05:46] LABS: BASOPHILS % 0.1 % (0.0-2.0); HEMATOCRIT 24.4 % (37.0-47.0); HEMOGLOBIN 8.2 g/dl (12.0-16.0); LYMPHOCYTES # 1.8 10^3/ul (0.8-2.9); LYMPHOCYTES % 22.3 % (15.0-51.0); MEAN CORPUSCULAR HGB CONC 33.6 g/dl (32.0-37.0); MEAN CORPUSCULAR VOLUME 83.3 fl (82.0-101.0); MEAN PLATELET VOLUME 11.7 fl (7.4-10.4); MONOCYTE # 0.5 10^3/ul (0.3-0.9); MONOCYTES % 5.9 % (0.0-11.0); NEUTROPHIL # 5.7 10^3/ul (1.6-7.5); NEUTROPHILS % 71.2 % (39.0-77.0); PLATELET COUNT 216 10^3/UL (140-415); RED BLOOD COUNT 2.93 10^6/ul (4.20-5.40); RED CELL DISTRIBUTION WIDTH 15.3 % (11.5-14.5)
[2017-09-03 06:54] LABS: ANION GAP 15 (8-16); BLOOD UREA NITROGEN 30 mg/dl (7-20); CALCIUM 9.1 mg/dl (8.4-10.2); CARBON DIOXIDE 26 mmol/L (21-31); CHLORIDE 103 mmol/L (97-110); GLUCOSE 133 mg/dl (70-220); POTASSIUM 4.5 mmol/L (3.5-5.1); SODIUM 139 mmol/L (135-144)
[2017-09-03] MEDS: PANTOPRAZOLE 40 MG INJ IV (09:16)
[2017-09-03] MEDS: SENNA TAB PO ×4 (09:17→21:12)
[2017-09-03] MEDS: METOPROLOL 50 MG TAB PO ×2 (09:17→21:09)
[2017-09-03] MEDS: FUROSEMIDE 20 MG INJ IV (09:17)
[2017-09-03] MEDS: MINOXIDIL 2.5 MG TAB PO ×2 (09:18→21:09)
[2017-09-03] MEDS: ENOXAPARIN 60 MG/0.6 ML SYG SC ×2 (09:32→21:11)
[2017-09-03] MEDS: traMADol 50 MG TAB PO (10:28)
[2017-09-03] MEDS: CLONIDINE 0.3 MG/24 HR PATCH TRANSDERM (16:54)
[2017-09-03] MEDS: CLONIDINE 0.2 MG/24 HR PATCH TRANSDERM (16:54)
[2017-09-03] MEDS: D5W-0.45 NACL + KCL 20 MEQ 1,000 ML IV (17:45)
[2017-09-03] MEDS: ZOLPIDEM 5 MG TAB PO (21:41)
[2017-09-04] MEDS: VANCOMYCIN HCL 250 MG/5ML POSYG PO ×4 (00:45→18:24)
[2017-09-04] MEDS: AMPICILLIN/SULB 3 GM/NS (PMX) 100 ML IVPB ×4 (00:45→18:24)
[2017-09-04 06:12] LABS: ADD MAN DIFF? NO
[2017-09-04 06:18] LABS: WHITE BLOOD COUNT 9.2 10^3/ul (4.8-10.8)
[2017-09-04 06:18] LABS: BASOPHILS % 0.4 % (0.0-2.0); EOSINOPHILS % 0.3 % (0.0-7.0); HEMATOCRIT 29.1 % (37.0-47.0); HEMOGLOBIN 9.3 g/dl (12.0-16.0); LYMPHOCYTES # 3.1 10^3/ul (0.8-2.9); LYMPHOCYTES % 34.1 % (15.0-51.0); MEAN CORPUSCULAR HEMOGLOBIN 27.4 pg (29.0-33.0); MEAN CORPUSCULAR VOLUME 85.8 fl (82.0-101.0); MEAN PLATELET VOLUME 11.6 fl (7.4-10.4); MONOCYTE # 0.7 10^3/ul (0.3-0.9); MONOCYTES % 8.1 % (0.0-11.0); NEUTROPHIL # 5.2 10^3/ul (1.6-7.5); NEUTROPHILS % 56.6 % (39.0-77.0); PLATELET COUNT 246 10^3/UL (140-415); RED BLOOD COUNT 3.39 10^6/ul (4.20-5.40); RED CELL DISTRIBUTION WIDTH 15.5 % (11.5-14.5)
[2017-09-04 06:43] LABS: ANION GAP 15 (8-16); BLOOD UREA NITROGEN 31 mg/dl (7-20); CALCIUM 9.1 mg/dl (8.4-10.2); CARBON DIOXIDE 26 mmol/L (21-31); CHLORIDE 104 mmol/L (97-110); CREATININE 1.06 mg/dl (0.44-1.00); GLUCOSE 85 mg/dl (70-220); POTASSIUM 4.2 mmol/L (3.5-5.1); SODIUM 141 mmol/L (135-144)
[2017-09-04] MEDS: PANTOPRAZOLE 40 MG INJ IV (08:51)
[2017-09-04] MEDS: FUROSEMIDE 20 MG INJ IV (08:52)
[2017-09-04] MEDS: METOPROLOL 50 MG TAB PO ×2 (08:52→21:00)
[2017-09-04] MEDS: SENNA TAB PO ×2 (08:53→21:00)
[2017-09-04] MEDS: MINOXIDIL 2.5 MG TAB PO ×2 (08:53→21:01)
[2017-09-04] MEDS: ENOXAPARIN 60 MG/0.6 ML SYG SC ×2 (09:17→21:06)
[2017-09-04] MEDS: traMADol 50 MG TAB PO ×2 (09:46→21:12)
[2017-09-04] MEDS: LEVOFLOXACIN 500 MG TAB PO (20:59)
[2017-09-04] MEDS: metroNIDAZOLE 500 MG TAB PO (21:06)
[2017-09-04] MEDS: ZOLPIDEM 5 MG TAB PO (21:12)
[2017-09-05] MEDS: metroNIDAZOLE 500 MG TAB PO ×3 (05:23→21:15)
[2017-09-05] MEDS: LEVOFLOXACIN 250 MG TAB PO (05:23)
[2017-09-05 07:11] LABS: ADD MAN DIFF? NO
[2017-09-05 07:14] LABS: WHITE BLOOD COUNT 7.7 10^3/ul (4.8-10.8)
[2017-09-05 07:14] LABS: BASOPHILS % 0.4 % (0.0-2.0); EOSINOPHILS # 0.1 10^3/ul (0.0-0.5); EOSINOPHILS % 1.7 % (0.0-7.0); HEMATOCRIT 29.6 % (37.0-47.0); HEMOGLOBIN 9.6 g/dl (12.0-16.0); LYMPHOCYTES # 2.5 10^3/ul (0.8-2.9); LYMPHOCYTES % 32.1 % (15.0-51.0); MEAN CORPUSCULAR HEMOGLOBIN 27.7 pg (29.0-33.0); MEAN CORPUSCULAR HGB CONC 32.4 g/dl (32.0-37.0); MEAN CORPUSCULAR VOLUME 85.5 fl (82.0-101.0); MEAN PLATELET VOLUME 11.1 fl (7.4-10.4); MONOCYTE # 0.6 10^3/ul (0.3-0.9); MONOCYTES % 7.7 % (0.0-11.0); NEUTROPHIL # 4.4 10^3/ul (1.6-7.5); NEUTROPHILS % 57.6 % (39.0-77.0); PLATELET COUNT 238 10^3/UL (140-415); RED BLOOD COUNT 3.46 10^6/ul (4.20-5.40); RED CELL DISTRIBUTION WIDTH 15.6 % (11.5-14.5)
[2017-09-05 07:44] LABS: ANION GAP 15 (8-16); BLOOD UREA NITROGEN 26 mg/dl (7-20); CALCIUM 9.1 mg/dl (8.4-10.2); CARBON DIOXIDE 27 mmol/L (21-31); CHLORIDE 104 mmol/L (97-110); CREATININE 1.12 mg/dl (0.44-1.00); GLUCOSE 79 mg/dl (70-220); POTASSIUM 4.2 mmol/L (3.5-5.1); SODIUM 142 mmol/L (135-144)
[2017-09-05] MEDS: PANTOPRAZOLE 40 MG INJ IV (08:56)
[2017-09-05] MEDS: MINOXIDIL 2.5 MG TAB PO ×2 (08:56→21:16)
[2017-09-05] MEDS: METOPROLOL 50 MG TAB PO ×2 (08:56→21:16)
[2017-09-05] MEDS: FUROSEMIDE 20 MG INJ IV (08:56)
[2017-09-05] MEDS: SENNA TAB PO ×2 (09:00→21:00)
[2017-09-05] MEDS: ENOXAPARIN 60 MG/0.6 ML SYG SC ×2 (09:06→21:19)
[2017-09-05] MEDS: ZOLPIDEM 5 MG TAB PO (21:30)
[2017-09-05] MEDS: traMADol 50 MG TAB PO (21:31)
[2017-09-06] MEDS ORDERED: SENNA TAB PO
[2017-09-06] MEDS ORDERED: SOD CHLORIDE 0.9% 1,000 ML IV
[2017-09-06] MEDS: metroNIDAZOLE 500 MG TAB PO ×3 (05:34→21:42)
[2017-09-06 05:48] LABS: ADD MAN DIFF? NO
[2017-09-06 05:51] LABS: WHITE BLOOD COUNT 7.7 10^3/ul (4.8-10.8)
[2017-09-06 05:51] LABS: BASOPHIL # 0.1 10^3/ul (0.0-0.1); BASOPHILS % 0.6 % (0.0-2.0); EOSINOPHILS # 0.2 10^3/ul (0.0-0.5); EOSINOPHILS % 2.5 % (0.0-7.0); HEMATOCRIT 27.8 % (37.0-47.0); HEMOGLOBIN 9.3 g/dl (12.0-16.0); LYMPHOCYTES # 2.5 10^3/ul (0.8-2.9); MEAN CORPUSCULAR HEMOGLOBIN 28.3 pg (29.0-33.0); MEAN CORPUSCULAR HGB CONC 33.5 g/dl (32.0-37.0); MEAN CORPUSCULAR VOLUME 84.5 fl (82.0-101.0); MEAN PLATELET VOLUME 10.4 fl (7.4-10.4); MONOCYTE # 0.5 10^3/ul (0.3-0.9); MONOCYTES % 6.4 % (0.0-11.0); NEUTROPHIL # 4.4 10^3/ul (1.6-7.5); NEUTROPHILS % 57.1 % (39.0-77.0); PLATELET COUNT 236 10^3/UL (140-415); RED BLOOD COUNT 3.29 10^6/ul (4.20-5.40); RED CELL DISTRIBUTION WIDTH 15.7 % (11.5-14.5)
[2017-09-06 06:17] LABS: ANION GAP 16 (8-16); BLOOD UREA NITROGEN 24 mg/dl (7-20); CALCIUM 9.6 mg/dl (8.4-10.2); CARBON DIOXIDE 27 mmol/L (21-31); CHLORIDE 102 mmol/L (97-110); CREATININE 1.08 mg/dl (0.44-1.00); GLUCOSE 108 mg/dl (70-220); POTASSIUM 3.9 mmol/L (3.5-5.1); SODIUM 141 mmol/L (135-144)
[2017-09-06] MEDS: LEVOFLOXACIN 250 MG TAB PO (06:48)
[2017-09-06] MEDS: METOPROLOL 50 MG TAB PO ×2 (09:00→21:42)
[2017-09-06] MEDS: FUROSEMIDE 20 MG INJ IV (10:12)
[2017-09-06] MEDS: PANTOPRAZOLE 40 MG INJ IV (10:12)
[2017-09-06] MEDS: AMLODIPINE 5 MG TAB PO (10:13)
[2017-09-06] MEDS: MINOXIDIL 2.5 MG TAB PO ×2 (10:13→21:42)
[2017-09-06] MEDS: ENOXAPARIN 60 MG/0.6 ML SYG SC ×2 (10:21→21:50)
[2017-09-06] MEDS: L ACIDOPHIL/B LACTIS/B LONGUM CAPSULE PO (21:42)
[2017-09-06] MEDS: ZOLPIDEM 5 MG TAB PO (21:48)
[2017-09-06] MEDS: traMADol 50 MG TAB PO (21:48)
[2017-09-07] MEDS: metroNIDAZOLE 500 MG TAB PO ×3 (06:11→21:41)
[2017-09-07] MEDS: LEVOFLOXACIN 250 MG TAB PO (06:15)
[2017-09-07] MEDS: PANTOPRAZOLE 40 MG INJ IV (09:17)
[2017-09-07] MEDS: MINOXIDIL 2.5 MG TAB PO ×2 (09:18→21:43)
[2017-09-07] MEDS: AMLODIPINE 5 MG TAB PO (09:18)
[2017-09-07] MEDS: L ACIDOPHIL/B LACTIS/B LONGUM CAPSULE PO ×2 (09:18→21:41)
[2017-09-07] MEDS: METOPROLOL 50 MG TAB PO ×2 (09:18→21:43)
[2017-09-07] MEDS: FUROSEMIDE 20 MG INJ IV (09:19)
[2017-09-07] MEDS: ENOXAPARIN 60 MG/0.6 ML SYG SC ×2 (09:21→21:46)
[2017-09-07] MEDS: CLONIDINE 0.1 MG/24 HR PATCH TRANSDERM (16:46)
[2017-09-07] MEDS: traMADol 50 MG TAB PO (21:42)
[2017-09-07] MEDS: ZOLPIDEM 5 MG TAB PO (21:42)
[2017-09-08 06:24] LABS: ADD MAN DIFF? NO
[2017-09-08] MEDS: LEVOFLOXACIN 250 MG TAB PO (06:25)
[2017-09-08] MEDS: metroNIDAZOLE 500 MG TAB PO ×3 (06:26→21:16)
[2017-09-08 06:35] LABS: BASOPHILS % 0.5 % (0.0-2.0); EOSINOPHILS # 0.2 10^3/ul (0.0-0.5); EOSINOPHILS % 2.7 % (0.0-7.0); HEMATOCRIT 28.5 % (37.0-47.0); HEMOGLOBIN 9.2 g/dl (12.0-16.0); LYMPHOCYTES # 2.7 10^3/ul (0.8-2.9); LYMPHOCYTES % 35.2 % (15.0-51.0); MEAN CORPUSCULAR HEMOGLOBIN 27.4 pg (29.0-33.0); MEAN CORPUSCULAR HGB CONC 32.3 g/dl (32.0-37.0); MEAN CORPUSCULAR VOLUME 84.8 fl (82.0-101.0); MEAN PLATELET VOLUME 10.7 fl (7.4-10.4); MONOCYTE # 0.5 10^3/ul (0.3-0.9); MONOCYTES % 6.9 % (0.0-11.0); NEUTROPHIL # 4.2 10^3/ul (1.6-7.5); NEUTROPHILS % 54.2 % (39.0-77.0); PLATELET COUNT 234 10^3/UL (140-415); RED BLOOD COUNT 3.36 10^6/ul (4.20-5.40); RED CELL DISTRIBUTION WIDTH 15.7 % (11.5-14.5)
[2017-09-08 06:35] LABS: WHITE BLOOD COUNT 7.7 10^3/ul (4.8-10.8)
[2017-09-08 06:51] LABS: ANION GAP 15 (8-16); BLOOD UREA NITROGEN 25 mg/dl (7-20); CALCIUM 9.4 mg/dl (8.4-10.2); CARBON DIOXIDE 27 mmol/L (21-31); CHLORIDE 101 mmol/L (97-110); CREATININE 1.21 mg/dl (0.44-1.00); GLUCOSE 103 mg/dl (70-220); SODIUM 139 mmol/L (135-144)
[2017-09-08] MEDS: AMLODIPINE 5 MG TAB PO (08:55)
[2017-09-08] MEDS: L ACIDOPHIL/B LACTIS/B LONGUM CAPSULE PO ×2 (08:55→21:17)
[2017-09-08] MEDS: FUROSEMIDE 20 MG INJ IV (08:55)
[2017-09-08] MEDS: METOPROLOL 50 MG TAB PO ×2 (08:55→21:17)
[2017-09-08] MEDS: PANTOPRAZOLE 40 MG INJ IV (08:55)
[2017-09-08] MEDS: MINOXIDIL 2.5 MG TAB PO ×2 (08:55→21:16)
[2017-09-08] MEDS: ENOXAPARIN 60 MG/0.6 ML SYG SC ×2 (09:13→21:20)
[2017-09-08] MEDS: traMADol 50 MG TAB PO ×2 (10:27→21:17)
[2017-09-08] MEDS: DEXTROSE 5%-0.45% NACL 1,000 ML IV (14:24)
[2017-09-08] MEDS: ZOLPIDEM 5 MG TAB PO (21:21)
[2017-09-09 05:35] LABS: ADD MAN DIFF? NO
[2017-09-09 05:43] LABS: BASOPHILS % 0.6 % (0.0-2.0); EOSINOPHILS # 0.2 10^3/ul (0.0-0.5); EOSINOPHILS % 2.7 % (0.0-7.0); HEMATOCRIT 28.5 % (37.0-47.0); HEMOGLOBIN 9.3 g/dl (12.0-16.0); LYMPHOCYTES # 2.3 10^3/ul (0.8-2.9); LYMPHOCYTES % 32.2 % (15.0-51.0); MEAN CORPUSCULAR HEMOGLOBIN 27.7 pg (29.0-33.0); MEAN CORPUSCULAR HGB CONC 32.6 g/dl (32.0-37.0); MEAN CORPUSCULAR VOLUME 84.8 fl (82.0-101.0); MEAN PLATELET VOLUME 10.1 fl (7.4-10.4); MONOCYTE # 0.5 10^3/ul (0.3-0.9); MONOCYTES % 6.7 % (0.0-11.0); NEUTROPHILS % 57.4 % (39.0-77.0); PLATELET COUNT 211 10^3/UL (140-415); RED BLOOD COUNT 3.36 10^6/ul (4.20-5.40); RED CELL DISTRIBUTION WIDTH 15.8 % (11.5-14.5)
[2017-09-09] MEDS: LEVOFLOXACIN 250 MG TAB PO (06:15)
[2017-09-09] MEDS: DEXTROSE 5%-0.45% NACL 1,000 ML IV ×3 (06:15→23:50)
[2017-09-09] MEDS: metroNIDAZOLE 500 MG TAB PO (06:15)
[2017-09-09 06:27] LABS: ANION GAP 15 (8-16); BLOOD UREA NITROGEN 21 mg/dl (7-20); CALCIUM 9.3 mg/dl (8.4-10.2); CARBON DIOXIDE 27 mmol/L (21-31); CHLORIDE 101 mmol/L (97-110); CREATININE 1.08 mg/dl (0.44-1.00); GLUCOSE 109 mg/dl (70-220); POTASSIUM 3.8 mmol/L (3.5-5.1); SODIUM 139 mmol/L (135-144)
[2017-09-09] MEDS: PANTOPRAZOLE 40 MG INJ IV (08:45)
[2017-09-09] MEDS: FUROSEMIDE 20 MG INJ IV (08:48)
[2017-09-09] MEDS: AMLODIPINE 5 MG TAB PO (08:54)
[2017-09-09] MEDS: L ACIDOPHIL/B LACTIS/B LONGUM CAPSULE PO ×2 (08:54→21:06)
[2017-09-09] MEDS: MINOXIDIL 2.5 MG TAB PO ×2 (08:54→21:06)
[2017-09-09] MEDS: METOPROLOL 50 MG TAB PO ×2 (08:55→21:06)
[2017-09-09] MEDS: ENOXAPARIN 60 MG/0.6 ML SYG SC ×2 (08:58→21:10)
[2017-09-09] MEDS: AL HYDROX/MG HYDROX/SIMETH 30 ML CUP PO (12:02)
[2017-09-09] MEDS: traMADol 50 MG TAB PO (15:59)
[2017-09-09] MEDS: ZOLPIDEM 5 MG TAB PO (21:12)
[2017-09-10 06:14] LABS: ADD MAN DIFF? NO
[2017-09-10 06:19] LABS: BASOPHILS % 0.3 % (0.0-2.0); EOSINOPHILS # 0.1 10^3/ul (0.0-0.5); EOSINOPHILS % 1.8 % (0.0-7.0); HEMATOCRIT 28.7 % (37.0-47.0); HEMOGLOBIN 9.3 g/dl (12.0-16.0); LYMPHOCYTES # 2.2 10^3/ul (0.8-2.9); MEAN CORPUSCULAR HEMOGLOBIN 27.4 pg (29.0-33.0); MEAN CORPUSCULAR HGB CONC 32.4 g/dl (32.0-37.0); MEAN CORPUSCULAR VOLUME 84.7 fl (82.0-101.0); MEAN PLATELET VOLUME 9.8 fl (7.4-10.4); MONOCYTE # 0.5 10^3/ul (0.3-0.9); NEUTROPHIL # 3.2 10^3/ul (1.6-7.5); NEUTROPHILS % 53.6 % (39.0-77.0); PLATELET COUNT 204 10^3/UL (140-415); RED BLOOD COUNT 3.39 10^6/ul (4.20-5.40); RED CELL DISTRIBUTION WIDTH 15.6 % (11.5-14.5)
[2017-09-10 06:42] LABS: ANION GAP 15 (8-16); BLOOD UREA NITROGEN 17 mg/dl (7-20); CALCIUM 9.6 mg/dl (8.4-10.2); CARBON DIOXIDE 27 mmol/L (21-31); CHLORIDE 103 mmol/L (97-110); CREATININE 0.95 mg/dl (0.44-1.00); GLUCOSE 113 mg/dl (70-220); POTASSIUM 3.6 mmol/L (3.5-5.1); SODIUM 141 mmol/L (135-144)
[2017-09-10] MEDS: AMLODIPINE 5 MG TAB PO (08:47)
[2017-09-10] MEDS: MINOXIDIL 2.5 MG TAB PO (08:48)
[2017-09-10] MEDS: PANTOPRAZOLE 40 MG INJ IV (08:48)
[2017-09-10] MEDS: L ACIDOPHIL/B LACTIS/B LONGUM CAPSULE PO (08:48)
[2017-09-10] MEDS: FUROSEMIDE 20 MG INJ IV (08:49)
[2017-09-10] MEDS: METOPROLOL 50 MG TAB PO (08:49)
[2017-09-10] MEDS: traMADol 50 MG TAB PO (09:27)
[2017-09-10] MEDS: ENOXAPARIN 60 MG/0.6 ML SYG SC (10:45)
[2017-09-10] MEDS: DEXTROSE 5%-0.45% NACL 1,000 ML IV (16:30)
[2017-09-10] MEDS ORDERED: AMLODIPINE 5 MG TAB PO (21:00)
== END 2017-09-10 18:35 | disposition home health service (06) | DRG 329 ==
LOC: REC 07:58 → MS1 07-22 08:38 → ICU 07-25 06:55 → MS2 07-29 16:48 → MS4 08-02 19:10 → MS2 08-10 17:53 → MS1 18:37 → PP2 07-26 13:24
PROC: 0DBM0ZZ Excision of Descending Colon, Open Approach (ICD-10-PCS; principal; 2017-07-19 12:18)
PROC: 0DSL0ZZ Reposition Transverse Colon, Open Approach (ICD-10-PCS; 2017-07-19 12:18)
PROC: 0DSM0ZZ Reposition Descending Colon, Open Approach (ICD-10-PCS; 2017-07-19 12:18)
PROC: 0DJD8ZZ Inspection of Lower Intestinal Tract, Via Natural or Artificial Opening Endoscopic (ICD-10-PCS; 2017-07-19 12:18)
PROC: 30233N1 Transfusion of Nonautologous Red Blood Cells into Peripheral Vein, Percutaneous Approach (ICD-10-PCS; 2017-07-19 12:18)
PROC: 02HV33Z Insertion of Infusion Device into Superior Vena Cava, Percutaneous Approach (ICD-10-PCS; 2017-07-19 12:18)
PROC: 3E0U33Z Introduction of Anti-inflammatory into Joints, Percutaneous Approach (ICD-10-PCS; 2017-07-19 12:18)
PROC: 3E0U3BZ Introduction of Anesthetic Agent into Joints, Percutaneous Approach (ICD-10-PCS; 2017-07-19 12:18)
DX: Z43.3 Encounter for attention to colostomy (principal); T81.12XA Postprocedural septic shock, initial encounter; R65.21 Severe sepsis with septic shock; K65.1 Peritoneal abscess; J18.9 Pneumonia, unspecified organism; I50.33 Acute on chronic diastolic (congestive) heart failure; N17.9 Acute kidney failure, unspecified; A04.72 Enterocolitis due to Clostridium difficile, not specified as recurrent; R18.8 Other ascites; I11.0 Hypertensive heart disease with heart failure; B37.0 Candidal stomatitis; K56.7 Ileus, unspecified; T81.4XXA Infection following a procedure, initial encounter; T81.32XA Disruption of internal operation (surgical) wound, not elsewhere classified, initial encounter; I82.5Z1 Chronic embolism and thrombosis of unspecified deep veins of right distal lower extremity; E83.42 Hypomagnesemia; E87.5 Hyperkalemia; E86.0 Dehydration; I10 Essential (primary) hypertension; E78.5 Hyperlipidemia, unspecified; K44.9 Diaphragmatic hernia without obstruction or gangrene; D63.8 Anemia in other chronic diseases classified elsewhere; B95.7 Other staphylococcus as the cause of diseases classified elsewhere; B96.89 Other specified bacterial agents as the cause of diseases classified elsewhere; Y83.2 Surgical operation with anastomosis, bypass or graft as the cause of abnormal reaction of the patient, or of later complication, without mention of misadventure at the time of the procedure; Y92.239 Unspecified place in hospital as the place of occurrence of the external cause; M25.561 Pain in right knee; M17.11 Unilateral primary osteoarthritis, right knee
CPT/HCPCS: 36430; 36569; 71045; 72170; 73560; 74018; 74176; 74177; 76937; 80048; 80053; 80061; 80202; 81001; 81003; 82270; 82947; 82962; 83605; 83735; 84100; 84134; 84443; 84478; 85025; 85610; 85730; 86644; 86850; 86900; 86901; 86920; 87040; 87070; 87075; 87086; 87400; 88305; 93005; 93306; 93970; 97110; 97116; 97162; 97163; 97530; J1940

== ENCOUNTER 2017-10-08 10:55 | Inpatient (IN) | payer MEDICARE, OTHER ==
[2017-10-08] MEDS: morphine 2 MG INJ IV ×2 (12:13→16:07)
[2017-10-08] MEDS: ONDANSETRON 4 MG INJ IV (12:13)
[2017-10-08 12:14] LABS: ADD MAN DIFF? NO
[2017-10-08 12:16] LABS: WHITE BLOOD COUNT 9.3 10^3/ul (4.8-10.8)
[2017-10-08 12:16] LABS: BASOPHIL # 0.1 10^3/ul (0.0-0.1); BASOPHILS % 0.5 % (0.0-2.0); EOSINOPHILS # 0.1 10^3/ul (0.0-0.5); EOSINOPHILS % 0.5 % (0.0-7.0); HEMATOCRIT 32.9 % (37.0-47.0); HEMOGLOBIN 10.9 g/dl (12.0-16.0); LYMPHOCYTES # 3.1 10^3/ul (0.8-2.9); LYMPHOCYTES % 33.5 % (15.0-51.0); MEAN CORPUSCULAR HEMOGLOBIN 27.9 pg (29.0-33.0); MEAN CORPUSCULAR HGB CONC 33.1 g/dl (32.0-37.0); MEAN CORPUSCULAR VOLUME 84.1 fl (82.0-101.0); MEAN PLATELET VOLUME 9.9 fl (7.4-10.4); MONOCYTE # 0.5 10^3/ul (0.3-0.9); MONOCYTES % 5.7 % (0.0-11.0); NEUTROPHIL # 5.5 10^3/ul (1.6-7.5); NEUTROPHILS % 59.6 % (39.0-77.0); PLATELET COUNT 275 10^3/UL (140-415); RED BLOOD COUNT 3.91 10^6/ul (4.20-5.40); RED CELL DISTRIBUTION WIDTH 16.3 % (11.5-14.5)
[2017-10-08 12:20] LABS: URINE PH (Dip) POC 5.5 (5.0-8.5)
[2017-10-08 12:20] LABS: URINE BLOOD (Dip) POC Negative (NEGATIVE); URINE GLUCOSE (Dip) POC Negative (NEGATIVE); URINE KETONES (Dip) POC Negative (NEGATIVE); URINE LEUKOCYTE EST (Dip) POC Negative (NEGATIVE); URINE NITRITE (Dip) POC Negative (NEGATIVE); URINE TOTAL PROTEIN POC Negative (NEGATIVE)
[2017-10-08 12:52] LABS: ALANINE AMINOTRANSFERASE 23 IU/L (13-69); ALBUMIN 4.4 g/dl (3.3-4.9); ALBUMIN/GLOBULIN RATIO 1.25; ALKALINE PHOSPHATASE 51 IU/L (42-121); ANION GAP 17 (8-16); ASPARTATE AMINO TRANSFERASE 21 IU/L (15-46); BLOOD UREA NITROGEN 29 mg/dl (7-20); CARBON DIOXIDE 24 mmol/L (21-31); CHLORIDE 102 mmol/L (97-110); CREATININE 1.15 mg/dl (0.44-1.00); GLUCOSE 99 mg/dl (70-220); LIPASE 42 U/L (23-300); POTASSIUM 4.8 mmol/L (3.5-5.1); SODIUM 138 mmol/L (135-144); TOTAL PROTEIN 7.9 g/dl (6.1-8.1)
[2017-10-08 15:51] LABS: LACTIC ACID 0.8 mmol/L (0.5-2.0)
[2017-10-08 15:54] LABS: INR 0.97; PARTIAL THROMBOPLASTIN TIME 32.7 Sec (25.0-35.0)
[2017-10-08] MEDS: CEFEPIME 1GM/50 ML (PMX) 50 ML IVPB (16:07)
[2017-10-08] MEDS: VANCOMYCIN 1 GM (PMX) 250 ML IVPB (16:30)
[2017-10-08 17:48] LABS: LACTIC ACID 1.2 mmol/L (0.5-2.0)
[2017-10-08] MEDS ORDERED: DOCUSATE SODIUM 100 MG CAP PO (18:30)
[2017-10-08] MEDS ORDERED: ACETAMINOPHEN 325 MG TAB PO (18:30)
[2017-10-08] MEDS: FAMOTIDINE 20 MG TAB PO (23:27)
[2017-10-08] MEDS: ZOLPIDEM 5 MG TAB PO (23:28)
[2017-10-09 06:25] LABS: ADD MAN DIFF? NO
[2017-10-09 06:28] LABS: BASOPHIL # 0.1 10^3/ul (0.0-0.1); BASOPHILS % 0.5 % (0.0-2.0); EOSINOPHILS % 0.4 % (0.0-7.0); HEMOGLOBIN 10.2 g/dl (12.0-16.0); LYMPHOCYTES # 3.5 10^3/ul (0.8-2.9); LYMPHOCYTES % 33.7 % (15.0-51.0); MEAN CORPUSCULAR HEMOGLOBIN 27.6 pg (29.0-33.0); MEAN CORPUSCULAR HGB CONC 31.9 g/dl (32.0-37.0); MEAN CORPUSCULAR VOLUME 86.5 fl (82.0-101.0); MEAN PLATELET VOLUME 10.2 fl (7.4-10.4); MONOCYTE # 0.6 10^3/ul (0.3-0.9); MONOCYTES % 5.2 % (0.0-11.0); NEUTROPHIL # 6.3 10^3/ul (1.6-7.5); NEUTROPHILS % 59.8 % (39.0-77.0); PLATELET COUNT 250 10^3/UL (140-415); RED CELL DISTRIBUTION WIDTH 16.5 % (11.5-14.5)
[2017-10-09 06:28] LABS: WHITE BLOOD COUNT 10.5 10^3/ul (4.8-10.8)
[2017-10-09 07:09] LABS: ALANINE AMINOTRANSFERASE 20 IU/L (13-69); ALBUMIN 4.1 g/dl (3.3-4.9); ALBUMIN/GLOBULIN RATIO 1.36; ALKALINE PHOSPHATASE 43 IU/L (42-121); ANION GAP 18 (8-16); ASPARTATE AMINO TRANSFERASE 16 IU/L (15-46); BLOOD UREA NITROGEN 33 mg/dl (7-20); CALCIUM 9.6 mg/dl (8.4-10.2); CARBON DIOXIDE 23 mmol/L (21-31); CHLORIDE 104 mmol/L (97-110); CREATININE 1.27 mg/dl (0.44-1.00); GLUCOSE 97 mg/dl (70-220); POTASSIUM 4.8 mmol/L (3.5-5.1); SODIUM 140 mmol/L (135-144); TOTAL PROTEIN 7.1 g/dl (6.1-8.1)
[2017-10-09] MEDS ORDERED: LINACLOTIDE 290 MG PO (09:00)
[2017-10-09] MEDS ORDERED: [UNRECOGNIZED DRUG - OTHER] PO (09:00)
[2017-10-09] MEDS ORDERED: OLMESARTAN PO (09:00)
[2017-10-09] MEDS ORDERED: HYDROCHLOROTHIAZIDE PO (09:00)
[2017-10-09] MEDS: SENNA TAB PO (09:11)
[2017-10-09] MEDS: ASPIRIN (EC) 81 MG TAB PO (09:11)
[2017-10-09] MEDS: METOPROLOL (XL) 50 MG TAB PO ×2 (09:11→20:27)
[2017-10-09] MEDS: AMLODIPINE 5 MG TAB PO (09:12)
[2017-10-09] MEDS: traMADol 50 MG TAB PO ×2 (09:12→18:22)
[2017-10-09] MEDS: DOCUSATE SODIUM 100 MG CAP PO ×2 (09:13→20:26)
[2017-10-09] MEDS: HYDROCHLOROTHIAZIDE 12.5 MG CAP PO (10:44)
[2017-10-09] MEDS: LOSARTAN 50 MG TAB PO (10:44)
[2017-10-09] MEDS: HYDROCODONE/APAP (5/325) TAB PO (10:45)
[2017-10-09 15:28] LABS: ADD UMIC NO; UR ASCORBIC ACID NEGATIVE (NEGATIVE); UR BILIRUBIN (Dip) NEGATIVE (NEGATIVE); UR BLOOD (Dip) NEGATIVE (NEGATIVE); UR CLARITY CLEAR (CLEAR); UR COLOR YELLOW (YELLOW); UR GLUCOSE (Dip) NEGATIVE (NEGATIVE); UR KETONES (Dip) NEGATIVE (NEGATIVE); UR LEUKOCYTE ESTERASE (Dip) NEGATIVE Leu/ul (NEGATIVE); UR NITRITE (Dip) NEGATIVE (NEGATIVE); UR SPECIFIC GRAVITY (Dip) 1.016 (1.003-1.030); UR TOTAL PROTEIN (Dip) NEGATIVE (NEGATIVE); UR UROBILINOGEN (Dip) NEGATIVE (NEGATIVE)
[2017-10-09] MEDS: ATORVASTATIN 20 MG TAB PO (20:26)
[2017-10-09] MEDS: FAMOTIDINE 20 MG TAB PO (20:26)
[2017-10-09] MEDS: ZOLPIDEM 5 MG TAB PO (21:47)
[2017-10-10] MEDS: hydrALAzine 20 MG INJ IV (05:34)
[2017-10-10 06:03] LABS: ADD MAN DIFF? NO
[2017-10-10 06:07] LABS: BASOPHIL # 0.1 10^3/ul (0.0-0.1); BASOPHILS % 0.5 % (0.0-2.0); EOSINOPHILS # 0.1 10^3/ul (0.0-0.5); EOSINOPHILS % 0.5 % (0.0-7.0); HEMATOCRIT 31.9 % (37.0-47.0); HEMOGLOBIN 10.3 g/dl (12.0-16.0); LYMPHOCYTES # 4.3 10^3/ul (0.8-2.9); LYMPHOCYTES % 38.7 % (15.0-51.0); MEAN CORPUSCULAR HEMOGLOBIN 27.8 pg (29.0-33.0); MEAN CORPUSCULAR HGB CONC 32.3 g/dl (32.0-37.0); MEAN PLATELET VOLUME 10.6 fl (7.4-10.4); MONOCYTE # 0.6 10^3/ul (0.3-0.9); MONOCYTES % 5.5 % (0.0-11.0); NEUTROPHILS % 54.4 % (39.0-77.0); PLATELET COUNT 270 10^3/UL (140-415); RED BLOOD COUNT 3.71 10^6/ul (4.20-5.40); RED CELL DISTRIBUTION WIDTH 16.4 % (11.5-14.5)
[2017-10-10 06:18] LABS: ANION GAP 20 (8-16); BLOOD UREA NITROGEN 36 mg/dl (7-20); CARBON DIOXIDE 21 mmol/L (21-31); CHLORIDE 105 mmol/L (97-110); CREATININE 1.37 mg/dl (0.44-1.00); GLUCOSE 87 mg/dl (70-220); POTASSIUM 5.4 mmol/L (3.5-5.1); SODIUM 141 mmol/L (135-144)
[2017-10-10 06:30] LABS: INR 0.92; PROTIME 12.4 Sec (11.9-14.9)
[2017-10-10] MEDS ORDERED: PROPOFOL 200 MG INJ (07:00)
[2017-10-10] MEDS: DOCUSATE SODIUM 100 MG CAP PO ×2 (09:00→22:06)
[2017-10-10] MEDS: SENNA TAB PO (09:00)
[2017-10-10] MEDS: traMADol 50 MG TAB PO (09:11)
[2017-10-10] MEDS: LOSARTAN 50 MG TAB PO (09:12)
[2017-10-10] MEDS: HYDROCHLOROTHIAZIDE 12.5 MG CAP PO (09:12)
[2017-10-10] MEDS: METOPROLOL (XL) 50 MG TAB PO ×2 (09:13→22:05)
[2017-10-10] MEDS: AMLODIPINE 5 MG TAB PO ×2 (09:13→22:05)
[2017-10-10] MEDS: NA POLYST SULFON 15 GM/60 ML BTL PO (13:04)
[2017-10-10] MEDS ORDERED: POLYMYXIN/BACITRACIN 1L IRRIG (14:02)
[2017-10-10] MEDS ORDERED: THROMBIN 5000 UNIT VIAL (14:26)
[2017-10-10] MEDS ORDERED: ETOMIDATE 20 MG INJ (15:00)
[2017-10-10] MEDS ORDERED: MEPERIDINE 25 MG INJ IV (15:00)
[2017-10-10] MEDS ORDERED: ROCURONIUM 50 MG INJ (15:00)
[2017-10-10] MEDS ORDERED: LIDOCAINE 1% (MDV) 20 ML INJ (15:00)
[2017-10-10] MEDS ORDERED: ONDANSETRON 4 MG INJ IV (15:00)
[2017-10-10] MEDS ORDERED: LABETALOL HCL 20MG INJ IV (15:00)
[2017-10-10] MEDS ORDERED: hydrALAzine 20 MG INJ IV (15:00)
[2017-10-10] MEDS ORDERED: DIPHENHYDRAMINE 50 MG INJ IV (15:00)
[2017-10-10] MEDS: GELATIN SIZE 100 SPONGE (15:05)
[2017-10-10] MEDS: THROMBIN 5000 UNIT VIAL (15:07)
[2017-10-10] MEDS ORDERED: hydrALAzine 20 MG INJ (15:18)
[2017-10-10] MEDS ORDERED: PHENYLephrine (100 MCG/ML) 5ML SYG ×3 (15:19→16:33)
[2017-10-10] MEDS ORDERED: CEFAZOLIN 1 GM INJ (15:26)
[2017-10-10] MEDS ORDERED: DEXAMETHASONE 4 MG/ML 1 ML INJ (16:16)
[2017-10-10] MEDS ORDERED: ONDANSETRON 4 MG INJ (16:16)
[2017-10-10] MEDS ORDERED: FAMOTIDINE 20 MG INJ (16:16)
[2017-10-10] MEDS: ROPIVACAINE 0.5 % 30 ML VIAL ×2 (17:10)
[2017-10-10] MEDS ORDERED: SUGAMMADEX SODIUM 200 MG/2 ML VIAL IV (17:18)
[2017-10-10] MEDS ORDERED: LABETALOL HCL 20MG INJ (17:28)
[2017-10-10] MEDS: ONDANSETRON 4 MG INJ IV (17:54)
[2017-10-10 18:32] LABS: ADD MAN DIFF? NO
[2017-10-10 18:34] LABS: EOSINOPHILS % 0.1 % (0.0-7.0); MEAN CORPUSCULAR HGB CONC 32.5 g/dl (32.0-37.0); NEUTROPHILS % 80.3 % (39.0-77.0)
[2017-10-10] MEDS: HYDROmorphONE (0.2 MG/ML) 10ML SYG IV ×2 (18:51→19:30)
[2017-10-10 18:53] LABS: CREATINE KINASE 86 IU/L (23-200)
[2017-10-10 19:07] LABS: CK INDEX 1.8; CK-MB 1.57 ng/ml (0.0-2.4)
[2017-10-10 19:09] LABS: BASOPHILS % 0.3 % (0.0-2.0); HEMATOCRIT 28.9 % (37.0-47.0); HEMOGLOBIN 9.4 g/dl (12.0-16.0); LYMPHOCYTES # 1.5 10^3/ul (0.8-2.9); LYMPHOCYTES % 17.3 % (15.0-51.0); MEAN PLATELET VOLUME 10.3 fl (7.4-10.4); MONOCYTE # 0.1 10^3/ul (0.3-0.9); MONOCYTES % 1.6 % (0.0-11.0); NEUTROPHIL # 7.1 10^3/ul (1.6-7.5); PLATELET COUNT 216 10^3/UL (140-415); RED BLOOD COUNT 3.36 10^6/ul (4.20-5.40); RED CELL DISTRIBUTION WIDTH 16.3 % (11.5-14.5); TROPONIN-I < 0.012 ng/ml (0.00-0.12)
[2017-10-10 19:09] LABS: WHITE BLOOD COUNT 8.9 10^3/ul (4.8-10.8)
[2017-10-10] MEDS: ATORVASTATIN 20 MG TAB PO (22:06)
[2017-10-10] MEDS: FAMOTIDINE 20 MG TAB PO (22:06)
[2017-10-10] MEDS: ZOLPIDEM 5 MG TAB PO (22:14)
[2017-10-11] MEDS: HYDROCODONE/APAP (5/325) TAB PO ×6 (00:08→22:48)
[2017-10-11 01:02] LABS: CREATINE KINASE 214 IU/L (23-200)
[2017-10-11 01:15] LABS: CK INDEX 2.2; CK-MB 4.76 ng/ml (0.0-2.4); TROPONIN-I 0.026 ng/ml (0.00-0.12)
[2017-10-11 07:58] LABS: ADD MAN DIFF? NO
[2017-10-11 08:02] LABS: WHITE BLOOD COUNT 10.6 10^3/ul (4.8-10.8)
[2017-10-11 08:02] LABS: BASOPHILS % 0.2 % (0.0-2.0); EOSINOPHILS % 0.1 % (0.0-7.0); HEMATOCRIT 25.9 % (37.0-47.0); HEMOGLOBIN 8.4 g/dl (12.0-16.0); LYMPHOCYTES # 3.1 10^3/ul (0.8-2.9); LYMPHOCYTES % 28.9 % (15.0-51.0); MEAN CORPUSCULAR HEMOGLOBIN 28.2 pg (29.0-33.0); MEAN CORPUSCULAR HGB CONC 32.4 g/dl (32.0-37.0); MEAN CORPUSCULAR VOLUME 86.9 fl (82.0-101.0); MEAN PLATELET VOLUME 10.5 fl (7.4-10.4); MONOCYTE # 0.6 10^3/ul (0.3-0.9); NEUTROPHIL # 6.8 10^3/ul (1.6-7.5); NEUTROPHILS % 64.3 % (39.0-77.0); PLATELET COUNT 225 10^3/UL (140-415); RED BLOOD COUNT 2.98 10^6/ul (4.20-5.40); RED CELL DISTRIBUTION WIDTH 16.6 % (11.5-14.5)
[2017-10-11 08:21] LABS: ANION GAP 17 (8-16); BLOOD UREA NITROGEN 30 mg/dl (7-20); CALCIUM 9.2 mg/dl (8.4-10.2); CARBON DIOXIDE 22 mmol/L (21-31); CHLORIDE 105 mmol/L (97-110); CREATININE 1.16 mg/dl (0.44-1.00); GLUCOSE 92 mg/dl (70-220); POTASSIUM 4.4 mmol/L (3.5-5.1); SODIUM 140 mmol/L (135-144)
[2017-10-11 08:41] LABS: CHOL/HDL RATIO 3.1 RATIO; HDL CHOLESTEROL 49 mg/dl (33-92); LDL CHOLESTEROL,CALCULATED 82 mg/dl; TRIGLYCERIDES 107 mg/dl (0-149)
[2017-10-11 08:41] LABS: CHOLESTEROL 152 mg/dl (100-200)
[2017-10-11] MEDS: HYDROCHLOROTHIAZIDE 12.5 MG CAP PO (09:00)
[2017-10-11] MEDS: LOSARTAN 50 MG TAB PO (09:01)
[2017-10-11] MEDS: DOCUSATE SODIUM 100 MG CAP PO ×2 (09:01→21:03)
[2017-10-11] MEDS: METOPROLOL (XL) 50 MG TAB PO ×2 (09:02→21:03)
[2017-10-11] MEDS: SENNA TAB PO (09:02)
[2017-10-11] MEDS: AMLODIPINE 5 MG TAB PO ×2 (09:05→21:04)
[2017-10-11] MEDS ORDERED: hydrALAzine 20 MG INJ IV (13:30)
[2017-10-11] MEDS: hydrALAzine 20 MG INJ IV (20:17)
[2017-10-11] MEDS: ATORVASTATIN 20 MG TAB PO (21:03)
[2017-10-11] MEDS: FAMOTIDINE 20 MG TAB PO (21:04)
[2017-10-11] MEDS: ZOLPIDEM 5 MG TAB PO (22:48)
[2017-10-12] MEDS: HYDROCODONE/APAP (5/325) TAB PO ×5 (05:03→22:07)
[2017-10-12 08:09] LABS: ADD MAN DIFF? NO
[2017-10-12 08:12] LABS: BASOPHILS % 0.3 % (0.0-2.0); EOSINOPHILS % 0.2 % (0.0-7.0); HEMATOCRIT 27.1 % (37.0-47.0); HEMOGLOBIN 8.9 g/dl (12.0-16.0); LYMPHOCYTES # 2.5 10^3/ul (0.8-2.9); LYMPHOCYTES % 28.3 % (15.0-51.0); MEAN CORPUSCULAR HEMOGLOBIN 28.2 pg (29.0-33.0); MEAN CORPUSCULAR HGB CONC 32.8 g/dl (32.0-37.0); MEAN CORPUSCULAR VOLUME 85.8 fl (82.0-101.0); MEAN PLATELET VOLUME 10.5 fl (7.4-10.4); MONOCYTE # 0.5 10^3/ul (0.3-0.9); MONOCYTES % 6.1 % (0.0-11.0); NEUTROPHIL # 5.6 10^3/ul (1.6-7.5); NEUTROPHILS % 64.9 % (39.0-77.0); PLATELET COUNT 227 10^3/UL (140-415); RED BLOOD COUNT 3.16 10^6/ul (4.20-5.40); RED CELL DISTRIBUTION WIDTH 16.4 % (11.5-14.5)
[2017-10-12 08:12] LABS: WHITE BLOOD COUNT 8.7 10^3/ul (4.8-10.8)
[2017-10-12 08:37] LABS: B-TYPE NATRIURETIC PEPTIDE 509 PG/ML (0-450)
[2017-10-12] MEDS: HYDROCHLOROTHIAZIDE 12.5 MG CAP PO (09:54)
[2017-10-12] MEDS: LOSARTAN 50 MG TAB PO (09:54)
[2017-10-12] MEDS: SENNA TAB PO (09:55)
[2017-10-12] MEDS: AMLODIPINE 5 MG TAB PO ×2 (09:55→22:10)
[2017-10-12] MEDS: METOPROLOL (XL) 50 MG TAB PO (09:55)
[2017-10-12] MEDS: DOCUSATE SODIUM 100 MG CAP PO ×2 (09:55→22:08)
[2017-10-12] MEDS: ONDANSETRON 4 MG INJ IV (10:37)
[2017-10-12] MEDS: ATORVASTATIN 20 MG TAB PO (22:08)
[2017-10-12] MEDS: FAMOTIDINE 20 MG TAB PO (22:08)
[2017-10-12] MEDS: METOPROLOL (XL) 25 MG TAB PO (22:11)
[2017-10-12] MEDS: ZOLPIDEM 5 MG TAB PO (22:17)
[2017-10-13] MEDS: HYDROCODONE/APAP (5/325) TAB PO ×3 (06:36→17:55)
[2017-10-13 06:39] LABS: ADD MAN DIFF? NO
[2017-10-13 06:42] LABS: WHITE BLOOD COUNT 7.9 10^3/ul (4.8-10.8)
[2017-10-13 06:42] LABS: BASOPHILS % 0.5 % (0.0-2.0); EOSINOPHILS # 0.1 10^3/ul (0.0-0.5); EOSINOPHILS % 0.6 % (0.0-7.0); HEMATOCRIT 25.9 % (37.0-47.0); HEMOGLOBIN 8.4 g/dl (12.0-16.0); LYMPHOCYTES % 38.2 % (15.0-51.0); MEAN CORPUSCULAR HEMOGLOBIN 27.9 pg (29.0-33.0); MEAN CORPUSCULAR HGB CONC 32.4 g/dl (32.0-37.0); MEAN PLATELET VOLUME 10.7 fl (7.4-10.4); MONOCYTE # 0.5 10^3/ul (0.3-0.9); MONOCYTES % 5.7 % (0.0-11.0); NEUTROPHIL # 4.3 10^3/ul (1.6-7.5); NEUTROPHILS % 54.6 % (39.0-77.0); PLATELET COUNT 232 10^3/UL (140-415); RED BLOOD COUNT 3.01 10^6/ul (4.20-5.40); RED CELL DISTRIBUTION WIDTH 16.6 % (11.5-14.5)
[2017-10-13 07:04] LABS: ANION GAP 13 (8-16); BLOOD UREA NITROGEN 23 mg/dl (7-20); CALCIUM 9.6 mg/dl (8.4-10.2); CARBON DIOXIDE 28 mmol/L (21-31); CHLORIDE 101 mmol/L (97-110); CREATININE 0.95 mg/dl (0.44-1.00); GLUCOSE 88 mg/dl (70-220); POTASSIUM 3.8 mmol/L (3.5-5.1); SODIUM 138 mmol/L (135-144)
[2017-10-13] MEDS: ONDANSETRON 4 MG INJ IV ×2 (09:30→12:14)
[2017-10-13] MEDS: BISACODYL (EC) 5 MG TAB PO (09:30)
[2017-10-13] MEDS: traMADol 50 MG TAB PO (09:30)
[2017-10-13] MEDS: SENNA TAB PO (09:30)
[2017-10-13] MEDS: morphine 2 MG INJ IV (09:30)
[2017-10-13] MEDS: DOCUSATE SODIUM 100 MG CAP PO ×2 (09:30→20:57)
[2017-10-13] MEDS: METOPROLOL (XL) 25 MG TAB PO ×2 (09:32→20:57)
[2017-10-13] MEDS: HYDROCHLOROTHIAZIDE 12.5 MG CAP PO (09:32)
[2017-10-13] MEDS: LOSARTAN 50 MG TAB PO (09:32)
[2017-10-13] MEDS: AMLODIPINE 5 MG TAB PO ×2 (09:32→20:56)
[2017-10-13] MEDS: FAMOTIDINE 20 MG TAB PO (20:57)
[2017-10-13] MEDS: ATORVASTATIN 20 MG TAB PO (20:57)
[2017-10-13] MEDS: MINERAL OIL 30ML CUP PO ×2 (20:57→21:00)
[2017-10-13] MEDS: ZOLPIDEM 5 MG TAB PO (21:00)
[2017-10-14] MEDS: HYDROCODONE/APAP (5/325) TAB PO ×3 (03:26→17:28)
[2017-10-14] MEDS: MINERAL OIL 30ML CUP PO ×3 (09:00→21:00)
[2017-10-14] MEDS: BISACODYL (EC) 5 MG TAB PO (09:38)
[2017-10-14] MEDS: SENNA TAB PO (09:38)
[2017-10-14] MEDS: METOPROLOL (XL) 25 MG TAB PO ×2 (09:38→21:00)
[2017-10-14] MEDS: DOCUSATE SODIUM 100 MG CAP PO ×2 (09:38→20:59)
[2017-10-14] MEDS: AMLODIPINE 5 MG TAB PO ×2 (09:38→21:00)
[2017-10-14] MEDS: LOSARTAN 50 MG TAB PO (09:39)
[2017-10-14] MEDS: HYDROCHLOROTHIAZIDE 12.5 MG CAP PO (09:39)
[2017-10-14] MEDS: traMADol 50 MG TAB PO (09:39)
[2017-10-14] MEDS: ATORVASTATIN 20 MG TAB PO (20:59)
[2017-10-14] MEDS: FAMOTIDINE 20 MG TAB PO (21:00)
[2017-10-14] MEDS: ZOLPIDEM 5 MG TAB PO (21:55)
[2017-10-15] MEDS: HYDROCODONE/APAP (5/325) TAB PO ×4 (00:41→19:10)
[2017-10-15] MEDS: AMLODIPINE 5 MG TAB PO ×2 (08:10→21:04)
[2017-10-15] MEDS: METOPROLOL (XL) 25 MG TAB PO ×2 (08:11→21:04)
[2017-10-15] MEDS: HYDROCHLOROTHIAZIDE 12.5 MG CAP PO (08:12)
[2017-10-15] MEDS: LOSARTAN 50 MG TAB PO (08:13)
[2017-10-15] MEDS: DOCUSATE SODIUM 100 MG CAP PO ×2 (08:13→21:03)
[2017-10-15] MEDS: SENNA TAB PO (08:13)
[2017-10-15] MEDS: MINERAL OIL 30ML CUP PO ×3 (08:14→21:00)
[2017-10-15] MEDS: hydrALAzine 20 MG INJ IV (09:24)
[2017-10-15] MEDS: ONDANSETRON 4 MG INJ IV (09:25)
[2017-10-15 09:30] LABS: ADD MAN DIFF? NO
[2017-10-15 09:33] LABS: BASOPHILS % 0.5 % (0.0-2.0); EOSINOPHILS # 0.1 10^3/ul (0.0-0.5); EOSINOPHILS % 1.2 % (0.0-7.0); HEMATOCRIT 26.8 % (37.0-47.0); HEMOGLOBIN 8.8 g/dl (12.0-16.0); LYMPHOCYTES # 2.3 10^3/ul (0.8-2.9); LYMPHOCYTES % 38.6 % (15.0-51.0); MEAN CORPUSCULAR HEMOGLOBIN 28.4 pg (29.0-33.0); MEAN CORPUSCULAR HGB CONC 32.8 g/dl (32.0-37.0); MEAN CORPUSCULAR VOLUME 86.5 fl (82.0-101.0); MEAN PLATELET VOLUME 10.5 fl (7.4-10.4); MONOCYTE # 0.3 10^3/ul (0.3-0.9); MONOCYTES % 5.4 % (0.0-11.0); NEUTROPHIL # 3.2 10^3/ul (1.6-7.5); NEUTROPHILS % 54.1 % (39.0-77.0); PLATELET COUNT 266 10^3/UL (140-415); RED CELL DISTRIBUTION WIDTH 15.8 % (11.5-14.5)
[2017-10-15 09:33] LABS: WHITE BLOOD COUNT 5.9 10^3/ul (4.8-10.8)
[2017-10-15 09:53] LABS: ANION GAP 13 (8-16); BLOOD UREA NITROGEN 19 mg/dl (7-20); CALCIUM 9.3 mg/dl (8.4-10.2); CARBON DIOXIDE 30 mmol/L (21-31); CHLORIDE 99 mmol/L (97-110); CREATININE 0.83 mg/dl (0.44-1.00); GLUCOSE 111 mg/dl (70-220); POTASSIUM 3.9 mmol/L (3.5-5.1); SODIUM 138 mmol/L (135-144)
[2017-10-15] MEDS: FAMOTIDINE 20 MG TAB PO (21:03)
[2017-10-15] MEDS: ATORVASTATIN 20 MG TAB PO (21:04)
[2017-10-15] MEDS: ZOLPIDEM 5 MG TAB PO (21:04)
[2017-10-15] MEDS: BALSAM PERU/CASTOR OIL 60 GM TUBE TOP (21:04)
[2017-10-16] MEDS: HYDROCODONE/APAP (5/325) TAB PO ×4 (02:13→20:12)
[2017-10-16] MEDS: AMLODIPINE 5 MG TAB PO ×2 (08:06→20:11)
[2017-10-16] MEDS: DOCUSATE SODIUM 100 MG CAP PO ×2 (08:07→20:13)
[2017-10-16] MEDS: HYDROCHLOROTHIAZIDE 25 MG TAB PO (08:07)
[2017-10-16] MEDS: LOSARTAN 50 MG TAB PO (08:07)
[2017-10-16] MEDS: METOPROLOL (XL) 25 MG TAB PO ×2 (08:08→20:12)
[2017-10-16] MEDS: BALSAM PERU/CASTOR OIL 60 GM TUBE TOP ×2 (08:13→21:06)
[2017-10-16] MEDS: MINERAL OIL 30ML CUP PO ×2 (08:26→20:23)
[2017-10-16] MEDS: SENNA TAB PO (09:39)
[2017-10-16 09:46] LABS: ADD MAN DIFF? NO
[2017-10-16 09:49] LABS: WHITE BLOOD COUNT 6.2 10^3/ul (4.8-10.8)
[2017-10-16 09:49] LABS: BASOPHILS % 0.6 % (0.0-2.0); EOSINOPHILS # 0.1 10^3/ul (0.0-0.5); HEMATOCRIT 27.7 % (37.0-47.0); LYMPHOCYTES # 2.6 10^3/ul (0.8-2.9); LYMPHOCYTES % 41.4 % (15.0-51.0); MEAN CORPUSCULAR HGB CONC 32.5 g/dl (32.0-37.0); MEAN CORPUSCULAR VOLUME 86.3 fl (82.0-101.0); MEAN PLATELET VOLUME 10.4 fl (7.4-10.4); MONOCYTE # 0.4 10^3/ul (0.3-0.9); MONOCYTES % 5.6 % (0.0-11.0); NEUTROPHIL # 3.2 10^3/ul (1.6-7.5); NEUTROPHILS % 51.1 % (39.0-77.0); PLATELET COUNT 311 10^3/UL (140-415); RED BLOOD COUNT 3.21 10^6/ul (4.20-5.40); RED CELL DISTRIBUTION WIDTH 15.7 % (11.5-14.5)
[2017-10-16 10:06] LABS: ANION GAP 13 (8-16); BLOOD UREA NITROGEN 16 mg/dl (7-20); CALCIUM 9.6 mg/dl (8.4-10.2); CARBON DIOXIDE 31 mmol/L (21-31); CHLORIDE 98 mmol/L (97-110); CREATININE 0.93 mg/dl (0.44-1.00); GLUCOSE 116 mg/dl (70-220); POTASSIUM 3.9 mmol/L (3.5-5.1); SODIUM 138 mmol/L (135-144)
[2017-10-16] MEDS: FAMOTIDINE 20 MG TAB PO (20:11)
[2017-10-16] MEDS: ATORVASTATIN 20 MG TAB PO (20:13)
[2017-10-16] MEDS: ZOLPIDEM 5 MG TAB PO (21:31)
[2017-10-17] MEDS: HYDROCODONE/APAP (5/325) TAB PO ×3 (04:49→20:14)
[2017-10-17] MEDS: SENNA TAB PO (08:18)
[2017-10-17] MEDS: METOPROLOL (XL) 25 MG TAB PO ×2 (08:19→20:14)
[2017-10-17] MEDS: HYDROCHLOROTHIAZIDE 25 MG TAB PO (08:19)
[2017-10-17] MEDS: LOSARTAN 50 MG TAB PO (08:19)
[2017-10-17] MEDS: DOCUSATE SODIUM 100 MG CAP PO ×2 (08:20→20:13)
[2017-10-17] MEDS: AMLODIPINE 5 MG TAB PO ×2 (08:20→20:15)
[2017-10-17] MEDS: MINERAL OIL 30ML CUP PO ×2 (08:20→20:16)
[2017-10-17] MEDS: BALSAM PERU/CASTOR OIL 60 GM TUBE TOP ×2 (08:21→20:16)
[2017-10-17] MEDS: ATORVASTATIN 20 MG TAB PO (20:13)
[2017-10-17] MEDS: FAMOTIDINE 20 MG TAB PO (20:13)
[2017-10-17] MEDS: ZOLPIDEM 5 MG TAB PO (22:13)
[2017-10-18] MEDS ORDERED: DIPHENHYDRAMINE 25 MG CAP PO (01:00)
[2017-10-18] MEDS: HYDROCODONE/APAP (5/325) TAB PO ×4 (02:18→21:55)
[2017-10-18] MEDS: BALSAM PERU/CASTOR OIL 60 GM TUBE TOP ×2 (09:00→22:02)
[2017-10-18] MEDS: MINERAL OIL 30ML CUP PO ×2 (09:09→22:05)
[2017-10-18] MEDS: HYDROCHLOROTHIAZIDE 25 MG TAB PO (09:10)
[2017-10-18] MEDS: DOCUSATE SODIUM 100 MG CAP PO ×2 (09:10→21:56)
[2017-10-18] MEDS: SENNA TAB PO (09:10)
[2017-10-18] MEDS: LOSARTAN 50 MG TAB PO (09:11)
[2017-10-18] MEDS: AMLODIPINE 5 MG TAB PO ×2 (09:11→21:57)
[2017-10-18] MEDS: METOPROLOL (XL) 25 MG TAB PO ×2 (09:12→21:58)
[2017-10-18] MEDS: ATORVASTATIN 20 MG TAB PO (21:58)
[2017-10-18] MEDS: FAMOTIDINE 20 MG TAB PO (21:59)
[2017-10-18] MEDS: ZOLPIDEM 5 MG TAB PO (22:13)
[2017-10-19] MEDS: HYDROCODONE/APAP (5/325) TAB PO ×3 (06:21→19:17)
[2017-10-19] MEDS: DOCUSATE SODIUM 100 MG CAP PO ×2 (08:57→21:21)
[2017-10-19] MEDS: MINERAL OIL 30ML CUP PO ×2 (08:57→21:23)
[2017-10-19] MEDS: LOSARTAN 50 MG TAB PO (08:58)
[2017-10-19] MEDS: HYDROCHLOROTHIAZIDE 25 MG TAB PO (08:58)
[2017-10-19] MEDS: METOPROLOL (XL) 25 MG TAB PO ×2 (08:59→21:22)
[2017-10-19] MEDS: AMLODIPINE 5 MG TAB PO ×2 (08:59→21:23)
[2017-10-19] MEDS: SENNA TAB PO (08:59)
[2017-10-19] MEDS: BALSAM PERU/CASTOR OIL 60 GM TUBE TOP ×2 (09:01→21:23)
[2017-10-19] MEDS: ATORVASTATIN 20 MG TAB PO (21:21)
[2017-10-19] MEDS: FAMOTIDINE 20 MG TAB PO (21:22)
[2017-10-19] MEDS: ZOLPIDEM 5 MG TAB PO (21:46)
[2017-10-20] MEDS: HYDROCODONE/APAP (5/325) TAB PO ×4 (02:42→22:30)
[2017-10-20 05:47] LABS: ADD MAN DIFF? NO
[2017-10-20 05:51] LABS: BASOPHILS % 0.4 % (0.0-2.0); EOSINOPHILS # 0.1 10^3/ul (0.0-0.5); HEMATOCRIT 29.8 % (37.0-47.0); HEMOGLOBIN 9.4 g/dl (12.0-16.0); LYMPHOCYTES # 4.5 10^3/ul (0.8-2.9); LYMPHOCYTES % 47.4 % (15.0-51.0); MEAN CORPUSCULAR HEMOGLOBIN 28.1 pg (29.0-33.0); MEAN CORPUSCULAR HGB CONC 31.5 g/dl (32.0-37.0); MEAN CORPUSCULAR VOLUME 89.2 fl (82.0-101.0); MEAN PLATELET VOLUME 10.1 fl (7.4-10.4); MONOCYTE # 0.6 10^3/ul (0.3-0.9); MONOCYTES % 5.8 % (0.0-11.0); NEUTROPHIL # 4.3 10^3/ul (1.6-7.5); PLATELET COUNT 353 10^3/UL (140-415); RED BLOOD COUNT 3.34 10^6/ul (4.20-5.40); RED CELL DISTRIBUTION WIDTH 15.9 % (11.5-14.5)
[2017-10-20 05:51] LABS: WHITE BLOOD COUNT 9.4 10^3/ul (4.8-10.8)
[2017-10-20 06:22] LABS: ANION GAP 17 (8-16); BLOOD UREA NITROGEN 34 mg/dl (7-20); CALCIUM 9.8 mg/dl (8.4-10.2); CARBON DIOXIDE 29 mmol/L (21-31); CHLORIDE 99 mmol/L (97-110); CREATININE 1.09 mg/dl (0.44-1.00); GLUCOSE 100 mg/dl (70-220); POTASSIUM 5.2 mmol/L (3.5-5.1); SODIUM 140 mmol/L (135-144)
[2017-10-20] MEDS: MINERAL OIL 30ML CUP PO (08:41)
[2017-10-20] MEDS: DOCUSATE SODIUM 100 MG CAP PO ×2 (08:41→21:42)
[2017-10-20] MEDS: SENNA TAB PO (08:41)
[2017-10-20] MEDS: HYDROCHLOROTHIAZIDE 25 MG TAB PO (08:42)
[2017-10-20] MEDS: AMLODIPINE 5 MG TAB PO ×2 (08:42→21:42)
[2017-10-20] MEDS: METOPROLOL (XL) 25 MG TAB PO ×2 (08:43→21:41)
[2017-10-20] MEDS: BALSAM PERU/CASTOR OIL 60 GM TUBE TOP ×2 (08:43→21:43)
[2017-10-20] MEDS: LOSARTAN 50 MG TAB PO (08:44)
[2017-10-20] MEDS: NA POLYST SULFON 15 GM/60 ML BTL PO (16:53)
[2017-10-20] MEDS: FAMOTIDINE 20 MG TAB PO (21:41)
[2017-10-20] MEDS: ATORVASTATIN 20 MG TAB PO (21:43)
[2017-10-20] MEDS: ZOLPIDEM 5 MG TAB PO (21:53)
[2017-10-21 05:37] LABS: ADD MAN DIFF? NO
[2017-10-21 05:45] LABS: WHITE BLOOD COUNT 8.4 10^3/ul (4.8-10.8)
[2017-10-21 05:45] LABS: BASOPHIL # 0.1 10^3/ul (0.0-0.1); BASOPHILS % 0.6 % (0.0-2.0); EOSINOPHILS # 0.1 10^3/ul (0.0-0.5); HEMATOCRIT 28.1 % (37.0-47.0); LYMPHOCYTES # 4.2 10^3/ul (0.8-2.9); LYMPHOCYTES % 50.1 % (15.0-51.0); MEAN CORPUSCULAR HEMOGLOBIN 28.4 pg (29.0-33.0); MEAN CORPUSCULAR VOLUME 88.6 fl (82.0-101.0); MEAN PLATELET VOLUME 10.5 fl (7.4-10.4); MONOCYTE # 0.5 10^3/ul (0.3-0.9); MONOCYTES % 6.3 % (0.0-11.0); NEUTROPHIL # 3.5 10^3/ul (1.6-7.5); NEUTROPHILS % 41.5 % (39.0-77.0); PLATELET COUNT 386 10^3/UL (140-415); RED BLOOD COUNT 3.17 10^6/ul (4.20-5.40); RED CELL DISTRIBUTION WIDTH 15.9 % (11.5-14.5)
[2017-10-21] MEDS: HYDROCODONE/APAP (5/325) TAB PO ×3 (05:50→18:26)
[2017-10-21 06:33] LABS: ANION GAP 16 (8-16); BLOOD UREA NITROGEN 36 mg/dl (7-20); CALCIUM 9.9 mg/dl (8.4-10.2); CARBON DIOXIDE 27 mmol/L (21-31); CHLORIDE 100 mmol/L (97-110); CREATININE 1.02 mg/dl (0.44-1.00); GLUCOSE 98 mg/dl (70-220); POTASSIUM 5.2 mmol/L (3.5-5.1); SODIUM 138 mmol/L (135-144)
[2017-10-21] MEDS: SENNA TAB PO (09:28)
[2017-10-21] MEDS: DOCUSATE SODIUM 100 MG CAP PO ×2 (09:28→21:20)
[2017-10-21] MEDS: HYDROCHLOROTHIAZIDE 25 MG TAB PO (09:28)
[2017-10-21] MEDS: METOPROLOL (XL) 25 MG TAB PO ×2 (09:29→21:19)
[2017-10-21] MEDS: BALSAM PERU/CASTOR OIL 60 GM TUBE TOP ×2 (09:29→21:19)
[2017-10-21] MEDS: AMLODIPINE 5 MG TAB PO ×2 (09:29→21:19)
[2017-10-21] MEDS: NA POLYST SULFON 15 GM/60 ML BTL PO (09:39)
[2017-10-21] MEDS: ATORVASTATIN 20 MG TAB PO (21:18)
[2017-10-21] MEDS: FAMOTIDINE 20 MG TAB PO (21:19)
[2017-10-21] MEDS: ZOLPIDEM 5 MG TAB PO (21:31)
[2017-10-22] MEDS: HYDROCODONE/APAP (5/325) TAB PO ×2 (05:21→12:31)
[2017-10-22 05:28] LABS: ADD MAN DIFF? NO
[2017-10-22 05:35] LABS: BASOPHIL # 0.1 10^3/ul (0.0-0.1); BASOPHILS % 0.6 % (0.0-2.0); EOSINOPHILS # 0.1 10^3/ul (0.0-0.5); EOSINOPHILS % 0.7 % (0.0-7.0); HEMATOCRIT 27.5 % (37.0-47.0); HEMOGLOBIN 8.9 g/dl (12.0-16.0); LYMPHOCYTES % 33.3 % (15.0-51.0); MEAN CORPUSCULAR HEMOGLOBIN 28.5 pg (29.0-33.0); MEAN CORPUSCULAR HGB CONC 32.4 g/dl (32.0-37.0); MEAN CORPUSCULAR VOLUME 88.1 fl (82.0-101.0); MEAN PLATELET VOLUME 10.2 fl (7.4-10.4); MONOCYTE # 0.6 10^3/ul (0.3-0.9); MONOCYTES % 5.1 % (0.0-11.0); NEUTROPHIL # 7.1 10^3/ul (1.6-7.5); PLATELET COUNT 368 10^3/UL (140-415); RED BLOOD COUNT 3.12 10^6/ul (4.20-5.40); RED CELL DISTRIBUTION WIDTH 16.1 % (11.5-14.5)
[2017-10-22 05:35] LABS: WHITE BLOOD COUNT 11.9 10^3/ul (4.8-10.8)
[2017-10-22 05:57] LABS: ANION GAP 17 (8-16); BLOOD UREA NITROGEN 36 mg/dl (7-20); CALCIUM 9.9 mg/dl (8.4-10.2); CARBON DIOXIDE 26 mmol/L (21-31); CHLORIDE 102 mmol/L (97-110); CREATININE 0.99 mg/dl (0.44-1.00); GLUCOSE 99 mg/dl (70-220); POTASSIUM 4.9 mmol/L (3.5-5.1); SODIUM 140 mmol/L (135-144)
[2017-10-22] MEDS: SENNA TAB PO (08:56)
[2017-10-22] MEDS: HYDROCHLOROTHIAZIDE 25 MG TAB PO (08:56)
[2017-10-22] MEDS: DOCUSATE SODIUM 100 MG CAP PO (08:56)
[2017-10-22] MEDS: BALSAM PERU/CASTOR OIL 60 GM TUBE TOP (08:57)
[2017-10-22] MEDS: AMLODIPINE 5 MG TAB PO (08:57)
[2017-10-22] MEDS: METOPROLOL (XL) 25 MG TAB PO (08:57)
== END 2017-10-22 15:15 | disposition home health service (06) | DRG 456 ==
LOC: MS1 10-18 01:25 → MS4 10-10 20:13 → E/R 10:55 → PP2 21:48
PROC: 0SG10AJ Fusion of 2 or more Lumbar Vertebral Joints with Interbody Fusion Device, Posterior Approach, Anterior Column, Open Approach (ICD-10-PCS; principal; 2017-10-10 14:30)
PROC: 01NB0ZZ Release Lumbar Nerve, Open Approach (ICD-10-PCS; 2017-10-10 14:30)
PROC: 0QB00ZX Excision of Lumbar Vertebra, Open Approach, Diagnostic (ICD-10-PCS; 2017-10-10 14:30)
PROC: 0QS03ZZ Reposition Lumbar Vertebra, Percutaneous Approach (ICD-10-PCS; 2017-10-10 14:30)
PROC: 0QU03JZ Supplement Lumbar Vertebra with Synthetic Substitute, Percutaneous Approach (ICD-10-PCS; 2017-10-10 14:30)
PROC: 0MB Bursae and Ligaments, Excision (ICD-10-PCS; 2017-10-10 14:30)
DX: M48.56XA Collapsed vertebra, not elsewhere classified, lumbar region, initial encounter for fracture (principal); J18.9 Pneumonia, unspecified organism; I50.33 Acute on chronic diastolic (congestive) heart failure; N17.9 Acute kidney failure, unspecified; I13.0 Hypertensive heart and chronic kidney disease with heart failure and stage 1 through stage 4 chronic kidney disease, or unspecified chronic kidney disease; E87.5 Hyperkalemia; D64.9 Anemia, unspecified; M71.38 Other bursal cyst, other site; M47.26 Other spondylosis with radiculopathy, lumbar region; M17.0 Bilateral primary osteoarthritis of knee; N18.9 Chronic kidney disease, unspecified; E88.2 Lipomatosis, not elsewhere classified; E78.5 Hyperlipidemia, unspecified; K59.00 Constipation, unspecified; R10.9 Unspecified abdominal pain; Z96.642 Presence of left artificial hip joint; Z90.49 Acquired absence of other specified parts of digestive tract
CPT/HCPCS: 36415; 71045; 72100; 72131; 72158; 74018; 74176; 80048; 80053; 80061; 81003; 82550; 82553; 82962; 83605; 83690; 83880; 84484; 85025; 85610; 85730; 87040; 87086; 88305; 88341; 88342; 93005; 96365; 96375; 96376; 97116; 97162; 97530; 99285-25